=== PATIENT | male | born 1950 | race American Indian/Alaskan Native ===

== ENCOUNTER 2017-01-28 07:50 | Emergency (ER) | payer MEDICARE, MEDICAID ==
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
[2017-01-28 09:12] VITALS: BP 164/55
--- NOTE | 2017-01-28 09:40 | CR ---
Clinical history: 66-year-old male with abdominal pain. Interpretation: PA/lateral chest films abnormal but unchanged, except for technique and inspiration, when compared directly back to previous exam 12 June 2016 and 13 March 2016. Abnormal appearance posterior lateral right eighth rib with associated pleural reactive scarring righ t lower lobe. Normal cardiac silhouette without cephalization of flow, signs of alveolar edema or dependent pleural effusion. No new parenchymal lung nodule or mass lesion, hilar lymphadenopathy or focal lobar pneumonia.
--- NOTE | 2017-02-01 10:57 | EKG ---
01/28/2017 - CHANDA ARMIJO - This 12-lead EKG shows a normal sinus rhythm with a ventricular rate of 60. Normal axis and intervals. Nonspecific T-waves in the lateral leads and no other acute ST-T wave changes. [facility] /[id number]
== END 2017-01-28 11:55 | disposition home or self-care (01) ==
LOC: DL.ED 07:50
DX: K81.9 Cholecystitis, unspecified (principal); E78.00 Pure hypercholesterolemia, unspecified; I11.0 Hypertensive heart disease with heart failure; I50.9 Heart failure, unspecified; E11.9 Type 2 diabetes mellitus without complications; M19.90 Unspecified osteoarthritis, unspecified site; Z86.2 Personal history of diseases of the blood and blood-forming organs and certain disorders involving the immune mechanism; Z87.891 Personal history of nicotine dependence; Z91.012 Allergy to eggs; Z91.013 Allergy to seafood; Z91.018 Allergy to other foods; Z88.8 Allergy status to other drugs, medicaments and biological substances; Z88.6 Allergy status to analgesic agent; Z79.899 Other long term (current) drug therapy
CPT/HCPCS: 36415; 71020; 80053; 82150; 82550; 82553; 83690; 84484; 85025; 93005; 93010; 99284

== ENCOUNTER 2017-05-22 17:31 | Emergency (ER) | payer MEDICARE, MEDICAID, OTHER ==
[2017-05-22] MEDS ORDERED: Iopamidol 612 MG/ML 100 ML Bottle IVPUSH ONE (17:46)
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
[2017-05-22 18:22] LABS: ACETAMINOPHEN < 10; CHLORIDE,CL 94 mmol/L (101-111); SODIUM,NA 135 mmol/L (135-145)
[2017-05-22 19:38] VITALS: BP 100/67
--- NOTE | 2017-05-29 09:26 | EKG ---
05/22/2017- CHANDA ARMIJO - FINDINGS: EKG, per my reading, shows sinus rhythm with PACs at a rate of 78. [facility] /[id number]
== END 2017-05-22 21:11 ==
LOC: DL.ED 17:31
DX: I13.0 Hypertensive heart and chronic kidney disease with heart failure and stage 1 through stage 4 chronic kidney disease, or unspecified chronic kidney disease (principal); N18.9 Chronic kidney disease, unspecified; M54.9 Dorsalgia, unspecified; E11.22 Type 2 diabetes mellitus with diabetic chronic kidney disease; I50.9 Heart failure, unspecified; E78.00 Pure hypercholesterolemia, unspecified; Z88.6 Allergy status to analgesic agent; Z91.012 Allergy to eggs; Z91.013 Allergy to seafood; Z88.8 Allergy status to other drugs, medicaments and biological substances; Z79.899 Other long term (current) drug therapy; Z87.891 Personal history of nicotine dependence; V49.40XA Driver injured in collision with unspecified motor vehicles in traffic accident, initial encounter
CPT/HCPCS: 36415; 70450; 71260; 72125; 74177; 80053; 85025; 85610; 99284; G0480; Q9967

== ENCOUNTER 2017-09-04 06:16 | Emergency (ER) | payer MEDICARE, MEDICAID ==
--- NOTE | 2017-09-04 06:46 | EDM.PDOC ---
<Rizwan Castro M - Last Filed: 09/04/17 06:37> ED HPI GENERAL MEDICAL PROBLEM - General Chief Complaint: Chest Pain Stated Complaint: SOB, CHEST PAIN [id number] Time Seen by Provider: 09/04/17 06:30 Source of Information: Reports: Patient History Limitations: Reports: No Limitations - History of Present Illness INITIAL COMMENTS - FREE TEXT/NARRATIVE: This 67 yo male patient was sent to the ED from dialysis due to increased shortness of breath and chest pain. The patient reports he was about 1 hour into his run of dialysis (normally 4 hour run) when he experienced shortness of breath then chest pain. The patient reports his pain is about a 6/10 at this time. The patient has a history of CHF, Htn, and a previous IA. The patient reports he ate at the [employer] on Saturday and began to have abdominal pain, nausea/ vomiting and diarrhea since that time. Onset: Today Onset Date: 09/04/17 Onset Time: 06:15 Duration: Constant Location: Reports: Chest Quality: Reports: Ache, Dull, Pressure Severity: Moderate Improves with: Reports: None Worsens with: Reports: None Associated Symptoms: Reports: Chest Pain, Shortness of Breath Mid-Sternal Chest Pain Score (Numeric/FACES): 6 - Related Data Allergies Allergy/AdvReac Type Severity Reaction Status Date / Time aspirin Allergy Severe Swollen Verified 09/04/17 06:25 Tongue chicken derived Allergy Rash Verified 09/04/17 06:25 egg Allergy Rash Verified 09/04/17 06:25 fish derived Allergy Rash Verified 09/04/17 06:25 ibuprofen Allergy Shortness Verified 09/04/17 06:25 of Breath Home Meds: Home Meds Hydrocodone/Acetaminophen [Hydrocodon-Acetaminophn 10-325] 1 tab PO Q6H PRN 07/18 [History] atorvaSTATin [Lipitor] 1 tab PO BEDTIME 12/02/15 [History] Lisinopril 40 mg PO BID 12/25/15 [History] Metoprolol Tartrate [Lopressor] 100 mg PO BID 01/10/16 [History] amLODIPine [Norvasc] 1 tab PO DAILY 01/10/16 [History] Clopidogrel [Plavix] 75 mg PO DAILY 01/05/17 [History] Past Medical History HEENT History: Reports: Cataract, Hard of Hearing, Impaired Vision Cardiovascular History: Reports: Aneurysm, Heart Failure, High Cholesterol, Hypertension, [place], Stents Other Cardiovascular History: PATIENT REPORTS HTN CONTROLLED BY DIALYSIS NO FURTHER MEDICATIONS ADMIN Respiratory History: Reports: None Gastrointestinal History: Reports: None Genitourinary History: Reports: Dialysis, Other (See Below) Other Genitourinary History: Last dialysis was saturday morning. Musculoskeletal History: Reports: Arthritis, Back Pain, Chronic Neurological History: Reports: None Psychiatric History: Reports: None Endocrine/Metabolic History: Reports: Diabetes, Type II Hematologic History: Reports: Anemia Immunologic History: Reports: None Oncologic (Cancer) History: Reports: None Dermatologic History: Reports: None - Infectious Disease History Infectious Disease History: Reports: Chicken Pox, Measles, Mumps, TB - Past Surgical History HEENT Surgical History: Reports: Cataract Surgery, Naso-Sinus Surgery, Oral Surgery Cardiovascular Surgical History: Reports: Carotid Endarterectomy, Carotid Stents , Other (See Below) Respiratory Surgical History: Reports: None GI Surgical History: Reports: Colonoscopy, EGD Neurological Surgical History: Reports: None Dermatological Surgical History: Reports: None Social & Family History - Family History Family Medical History: Noncontributory - Tobacco Use Smoking Status *Q: Current Some Day Smoker Years of Tobacco use: 25 Packs/Tins Daily: 0.1 Used Tobacco, but Quit: Yes Month/Year Tobacco Last Used: 3 months ago Second Hand Smoke Exposure: Yes - Caffeine Use Caffeine Use: Reports: Coffee - Alcohol Use Days Per Week of Alcohol Use: 0 Number of Drinks Per Day: 4 Total Drinks Per Week: 0 - Recreational Drug Use Recreational Drug Use: No Drug Use in Last 12 Months: No - Living Situation & Occupation Living situation: Reports: Occupation: Retired ED ROS GENERAL - Review of Systems Review Of Systems: ROS reveals no pertinent complaints other than HPI. ED EXAM, GENERAL - Physical Exam Exam: See Below Exam Limited By: No Limitations General Appearance: Alert, WD/WN, Moderate Distress, Obese Eye Exam: Bilateral Eye: EOMI, Normal Inspection, PERRL Ears: Normal External Exam, Normal Canal, Hearing Grossly Normal, Normal TMs Nose: Normal Inspection, Normal Mucosa, No Blood Throat/Mouth: Normal Inspection, Normal Lips, Normal Teeth, Normal Gums, Normal Oropharynx, Normal Voice, No Airway Compromise Head: Atraumatic, Normocephalic Neck: Normal Inspection, Supple, Non-Tender, Full Range of Motion Respiratory/Chest: Lungs Clear, No Accessory Muscle Use, Chest Non-Tender, Decreased Breath Sounds Cardiovascular: Normal Peripheral Pulses, Regular Rate, Rhythm, No Edema, No Gallop, No JVD, No Rub, Systolic Murmur GI/Abdominal: Normal Bowel Sounds, Soft, Non-Tender, No Organomegaly, No Distention, No Abnormal Bruit, No Mass (Male) Exam: Deferred Rectal (Males) Exam: Deferred Back Exam: Normal Inspection, Full Range of Motion, NT Extremities: Normal Inspection, Normal Range of Motion, Non-Tender, Normal Capillary Refill, No Pedal Edema Neurological: Alert, Oriented, CN II-XII Intact, Normal Cognition, Normal Gait, Normal Reflexes, No Motor/Sensory Deficits Psychiatric: Normal Affect, Normal Mood Skin Exam: Warm, Dry, Intact, Normal Color, No Rash Lymphatic: No Adenopathy Course - Vital Signs Last Recorded V/S: Last Vital Signs Temp 36.7 C 09/04/17 06:20 Pulse 86 09/04/17 06:20 Resp 18 09/04/17 06:20 BP 130/62 09/04/17 06:20 Pulse Ox 99 09/04/17 06:20 - Orders/Labs/Meds Orders: Active Orders 24 hr Category Date Time Status EKG Documentation Completion [RC] URGENT Care 09/04/17 06:25 Active Labs: Laboratory Tests 09/04/17 09/04/17 09/04/17 Range/Units 06:28 06:28 06:37 WBC 10.1 H (5.0-10.0) 10^3/uL RBC 3.99 L (4.6-6.2) 10^6/uL Hgb 11.8 L (14.0-18.0) g/dL Hct 35.6 L (40.0-54.0) % MCV 89.2 (80-100) fL MCH 29.6 (27.0-34.0) pg MCHC 33.1 (33.0-35.0) g/dL Plt Count 195 (150-450) 10^3/uL Neut % (Auto) 76.7 H (42.2-75.2) % Lymph % (Auto) 13.7 L (20.5-50.1) % [place] % (Auto) 4.3 (2-8) % Eos % (Auto) 4.7 H (1.0-3.0) % Baso % (Auto) 0.6 (0.0-1.0) % PT 10.0 (9.0-12.0) SEC INR 1.0 (0.9-1.2) Sodium 136 (135-145) mmol/L Potassium 4.2 (3.6-5.0) mmol/L Chloride 98 L (101-111) mmol/L Carbon Dioxide 26.0 (21.0-31.0) mmol/L Anion Gap 16.2 BUN 46 H (7-18) mg/dL Creatinine 8.5 H D (0.6-1.3) mg/dL Est Cr Clr Drug Dosing 8.83 mL/min Estimated GFR (MDRD) 6 BUN/Creatinine Ratio 5.41 Glucose 172 H (74-105) mg/dL Calcium 7.2 L (8.4-10.2) mg/dl Total Bilirubin 0.7 (0.2-1.0) mg/dL AST 18 (10-42) IU/L ALT 13 (10-60) IU/L Alkaline Phosphatase 128 H (42-121) IU/L Troponin I 0.04 H* (0.00-0.02) ng/ml B-Natriuretic Peptide 871 H (0-100) pg/ml Total Protein 7.8 (6.7-8.2) g/dl Albumin 3.7 (3.2-5.5) g/dl Globulin 4.1 Albumin/Globulin Ratio 0.90 Meds: Medications Discontinued Medications Generic Name Dose Route Start Last Admin Trade Name Freq PRN Reason Stop Dose Admin Clopidogrel Bisulfate 150 mg 09/04/17 07:40 Plavix PO 09/04/17 07:41 ONETIME ONE Lisinopril 40 mg 09/04/17 07:39 Prinivil PO 09/04/17 07:40 ONETIME ONE Departure - Departure Disposition: DC/Tfer to Acute Hospital 02 Clinical Impression: Chest pain, Elevated troponin, Acute coronary syndrome, ESRD (end stage renal disease) on dialysis CHF (congestive heart failure) Qualifiers: Heart failure type: unspecified Heart failure chronicity: chronic Qualified Code(s): I50.9 - Heart failure, unspecified Forms: ED Department Discharge, Interfacility Transfer EMTALA <Pedro Carmichael - Last Filed: 09/04/17 07:50> ED HPI GENERAL MEDICAL PROBLEM - General Source of Information: Reports: Old Records, RN, RN Notes Reviewed - History of Present Illness INITIAL COMMENTS - FREE TEXT/NARRATIVE: Assumed care of pt from Rizwan MARTINEZ at 0700HR shift change. No changes to CC/HPI, Hx, ROS, or exam as documented by the PA for this enocounter. *Pt has aspirin allergy. Pt has not taken his Plavix or Lisinopril yet today. Social & Family History - Family History Cardiac: Reports: Afib, Angina, CAD (multiple family members), Cardiomyopathy, Heart Failure, High Cholesterol, Hypertension, IA, Prior Cardiac Arrest (brother ) Respiratory: Reports: COPD : Reports: Dialysis, Renal Disease/Insufficiency Musculoskeletal: Reports: Arthritis Neurological: Reports: CVA Endocrine/Metabolic: Reports: Diabetes, type II ED EXAM, GENERAL - Physical Exam Free Text/Narrative:: No changes to exam as documented by Rizwan MARTINEZ for this encounter. EKG INTERPRETATION EKG Date: 09/04/17 Time: 06:20 Rhythm: Other (SR) Rate (Beats/Min): 86 [place]: Normal P-Wave: Present QRS: Normal ST-T: Other (nonspecific lateral ST-T wave changes, poss. ischemia) Comparison: NA - No Prior EKG Course - Orders/Labs/Meds Meds: Medications Discontinued Medications Generic Name Dose Route Start Last Admin Trade Name Freq PRN Reason Stop Dose Admin Clopidogrel Bisulfate 150 mg 09/04/17 07:40 Plavix PO 09/04/17 07:41 ONETIME ONE Lisinopril 40 mg 09/04/17 07:39 Prinivil PO 09/04/17 07:40 ONETIME ONE - Radiology Interpretation Free Text/Narrative:: CXR: no acute process, see Rad. report. Departure - Departure Time of Disposition: 07:37 Reason for Transfer *Q: Primary PCI Indicated Condition: Serious
--- NOTE | 2017-09-04 07:08 | CR ---
Clinical history: 67-year-old diabetic male smoker with chest pain and shortness of breath. Interpretation: Focal pleural parenchymal scarring right mid lung unchanged since 28 January 2017 e xam. Normal cardiac silhouette without cephalization of vascular flow, signs of alveolar edema or dependen t pleural fluid accumulation. Despite less than optimal inspiratory effort no new lung mass, hilar lymphadenopathy or focal lobar p neumonia. No pneumothorax.
[2017-09-04] MEDS ORDERED: Lisinopril 20 MG Tab PO ONE (07:39)
[2017-09-04] MEDS ORDERED: Clopidogrel 75 MG Tab PO ONE (07:40)
[2017-09-04 07:53] VITALS: BP 131/69
--- NOTE | 2017-09-04 14:15 | EKG ---
09/04/2017 - CHANDA ARMIJO - TIME: 6:20 a.m. FINDINGS: Sinus rhythm. [facility] /[id number]
== END 2017-09-04 08:10 ==
LOC: DL.ED 06:16
DX: I24.9 Acute ischemic heart disease, unspecified (principal); I13.2 Hypertensive heart and chronic kidney disease with heart failure and with stage 5 chronic kidney disease, or end stage renal disease; E11.22 Type 2 diabetes mellitus with diabetic chronic kidney disease; N18.6 End stage renal disease; I50.9 Heart failure, unspecified; Z99.2 Dependence on renal dialysis; R78.9 Finding of unspecified substance, not normally found in blood; F17.210 Nicotine dependence, cigarettes, uncomplicated; Z79.899 Other long term (current) drug therapy; Z88.6 Allergy status to analgesic agent; Z91.018 Allergy to other foods; Z91.012 Allergy to eggs; Z91.013 Allergy to seafood
CPT/HCPCS: 36415; 71045; 80053; 83880; 84484; 85025; 85610; 93005; 93010; 99285; A9270

== ENCOUNTER 2019-08-27 17:46 | Emergency (ER) | payer MEDICARE, MEDICAID ==
[2019-08-27 18:07] VITALS: BP 153/91; PULSE 88
--- NOTE | 2019-08-27 19:06 | EDM.PDOC ---
<Carmen Nickerson - Last Filed: 08/27/19 19:10> ED HPI GENERAL MEDICAL PROBLEM - General Chief Complaint: Chest Pain Stated Complaint: AMBULANCE Time Seen by Provider: 08/27/19 18:05 Source of Information: Reports: Patient, EMS, EMS Notes Reviewed, RN, RN Notes Reviewed History Limitations: Reports: No Limitations - History of Present Illness INITIAL COMMENTS - FREE TEXT/NARRATIVE: Patient presents to ER per ALS with complaint of mid epigastric pain. Reported to EMS that he was having chest pain, a saline lock was started in route, patient was given nitro and morphine in route. Patient states he had gallbladder attacks in the past and had pain that was similar to this in the midepigastric area. Patient states the last time it happened he had an egg roll , tonight he had a burrito for supper. Patient is on dialysis runs dialysis on Wednesdays and Fridays. Patient denies shortness of breath, cough, fever, chills, nausea, vomiting, diarrhea. Onset: Today, Sudden Epigastric Pain Score (Numeric/FACES): 3 - Related Data Allergies Allergy/AdvReac Type Severity Reaction Status Date / Time aspirin Allergy Severe Swollen Verified 08/27/19 18:10 Tongue chicken derived Allergy Rash Verified 08/27/19 18:10 egg Allergy Rash Verified 08/27/19 18:10 fish derived Allergy Rash Verified 08/27/19 18:10 ibuprofen Allergy Shortness Verified 08/27/19 18:10 of Breath Home Meds: Home Meds Hydrocodone/Acetaminophen [Hydrocodone-Acetamin 10-325 mg] 1 tab PO Q6H PRN 07/18 [History] atorvaSTATin [Lipitor] 1 tab PO BEDTIME 12/02/15 [History] Lisinopril 40 mg PO BID 12/25/15 [History] Metoprolol Tartrate [Lopressor] 100 mg PO BID 01/10/16 [History] amLODIPine [Norvasc] 1 tab PO DAILY 01/10/16 [History] Clopidogrel [Plavix] 75 mg PO DAILY 01/05/17 [History] Past Medical History HEENT History: Reports: Cataract, Hard of Hearing, Impaired Vision Cardiovascular History: Reports: Aneurysm, Heart Failure, High Cholesterol, Hypertension, [place], Stents Other Cardiovascular History: PATIENT REPORTS HTN CONTROLLED BY DIALYSIS NO FURTHER MEDICATIONS ADMIN Respiratory History: Reports: None, Other (See Below) Other Respiratory History: only sleeps 2 hours a day. Gastrointestinal History: Reports: None, Cholelithiasis Genitourinary History: Reports: Dialysis, Other (See Below) Other Genitourinary History: Has dialysis tomorrow. Musculoskeletal History: Reports: Arthritis, Back Pain, Chronic Neurological History: Reports: None Psychiatric History: Reports: None Endocrine/Metabolic History: Reports: Diabetes, Type II Hematologic History: Reports: Anemia Immunologic History: Reports: None Oncologic (Cancer) History: Reports: None Dermatologic History: Reports: None - Infectious Disease History Infectious Disease History: Reports: Chicken Pox, Measles, Mumps, TB - Past Surgical History HEENT Surgical History: Reports: Cataract Surgery, Naso-Sinus Surgery, Oral Surgery Cardiovascular Surgical History: Reports: Carotid Endarterectomy, Carotid Stents Respiratory Surgical History: Reports: None GI Surgical History: Reports: Colonoscopy, EGD Neurological Surgical History: Reports: None Dermatological Surgical History: Reports: None Social & Family History - Family History Family Medical History: Noncontributory Cardiac: Reports: Afib, Angina, CAD, Cardiomyopathy, Heart Failure, High Cholesterol, Hypertension, [place], Prior Cardiac Arrest Respiratory: Reports: COPD : Reports: Dialysis, Renal Disease/Insufficiency Musculoskeletal: Reports: Arthritis Neurological: Reports: CVA Endocrine/Metabolic: Reports: Diabetes, type II - Tobacco Use Smoking Status *Q: Former Smoker Years of Tobacco use: 40 Used Tobacco, but Quit: Yes Month/Year Tobacco Last Used: 07/2019 - Caffeine Use Caffeine Use: Reports: Coffee - Recreational Drug Use Recreational Drug Use: No - Living Situation & Occupation Living situation: Reports: Occupation: Retired ED ROS GENERAL - Review of Systems Review Of Systems: Comprehensive ROS is negative, except as noted in HPI. ED EXAM, GENERAL - Physical Exam Exam: See Below Exam Limited By: No Limitations General Appearance: Alert, WD/WN, No Apparent Distress Eye Exam: Bilateral Eye: EOMI, Normal Inspection Ears: Normal External Exam, Hearing Grossly Normal Nose: Normal Inspection Throat/Mouth: Normal Inspection, Normal Voice, No Airway Compromise Head: Atraumatic, Normocephalic Neck: Normal Inspection, Supple, Non-Tender, Full Range of Motion Respiratory/Chest: No Respiratory Distress, No Accessory Muscle Use, Chest Non- Tender, Crackles (bases bilaterally) Cardiovascular: Normal Peripheral Pulses, Regular Rate, Rhythm, No Edema, No Gallop, No JVD, No Rub, Diastolic Murmur Peripheral Pulses: 2+: Radial (L), Radial (R) GI/Abdominal: Normal Bowel Sounds, Soft, Tender (epigastrum\) (Male) Exam: Deferred Rectal (Males) Exam: Deferred Back Exam: Normal Inspection, Full Range of Motion, NT Extremities: Normal Inspection, Normal Range of Motion, Non-Tender, Normal Capillary Refill, No Pedal Edema Neurological: Alert, Oriented, CN II-XII Intact, Normal Cognition, Normal Gait, Normal Reflexes, No Motor/Sensory Deficits Psychiatric: Normal Affect, Normal Mood Skin Exam: Warm, Dry, Intact, Normal Color, No Rash Lymphatic: No Adenopathy Course - Vital Signs Last Recorded V/S: Last Vital Signs Temp 37.1 C 08/27/19 18:05 Pulse 88 08/27/19 18:05 Resp 18 08/27/19 18:05 BP 153/91 H 08/27/19 18:05 Pulse Ox 96 08/27/19 18:05 - Orders/Labs/Meds Orders: Active Orders 24 hr Category Date Time Status EKG Documentation Completion [RC] STAT Care 08/27/19 17:52 Active Labs: Laboratory Tests 08/27/19 08/27/19 08/27/19 Range/Units 17:58 17:58 17:58 WBC 9.2 (5.0-10.0) 10^3/uL RBC 3.64 L (4.6-6.2) 10^6/uL Hgb 10.7 L (14.0-18.0) g/dL Hct 33.3 L (40.0-54.0) % MCV 91.5 (80-100) fL MCH 29.4 (27.0-34.0) pg MCHC 32.1 L (33.0-35.0) g/dL Plt Count 244 (150-450) 10^3/uL Neut % (Auto) 76.2 H (42.2-75.2) % Lymph % (Auto) 12.4 L (20.5-50.1) % [place] % (Auto) 9.1 H (2-8) % Eos % (Auto) 1.8 (1.0-3.0) % Baso % (Auto) 0.5 (0.0-1.0) % Sodium 141 (136-145) mmol/L Potassium 5.4 H (3.5-5.1) mmol/L Chloride 101 (98-107) mmol/L Carbon Dioxide 29 (21-32) mmol/L Anion Gap 16.4 H (7-13) mEq/L BUN 45 H (7-18) mg/dL Creatinine 7.70 H* (0.70-1.30) mg/dL Est Cr Clr Drug Dosing TNP Estimated GFR (MDRD) 7 BUN/Creatinine Ratio 5.8 (No establ ref range) Glucose 200 H (74-99) mg/dL Calcium 8.3 L (8.5-10.1) mg/dL Total Bilirubin 0.8 (0.2-1.0) mg/dL AST 133 H (15-37) U/L ALT 103 H (16-63) U/L Alkaline Phosphatase 289 H (46-116) U/L Troponin I 0.046 (0.000-0.056) ng/mL B-Natriuretic Peptide 1280 H (0-100) pg/ml Total Protein 7.8 (6.4-8.2) g/dL Albumin 3.7 (3.4-5.0) g/dL Globulin 4.1 Albumin/Globulin Ratio 0.9 Amylase 109 (25-115) U/L Lipase 1288 H (73-393) U/L - Radiology Interpretation Free Text/Narrative:: Chest xray: FINDINGS: Lungs: Right lung base ground-glass and patchy airspace consolidations are appreciated. No other discrete airspace disease is appreciated at this time. Pleural space: Unremarkable. No pleural effusion. No pneumothorax. Heart/Mediastinum: The heart is mildly enlarged. Vasculature: There is pulmonary vascular prominence. Calcified aortic knob. Bones/joints: No acute abnormality or aggressive osseous lesion. IMPRESSION: 1. Acute airspace disease in the right lower lung favoring infectious pneumonic process in the appropriate clinical setting. 2. Stable prominence to the pulmonary vasculature. Thank you for allowing us to participate in the care of your patient. Dictated and Authenticated by: Jozef Webster MD 08/27/2019 6:40 PM Central Time ([place] & [place]) See rad report Departure - Departure Disposition: Home, Self-Care 01 Clinical Impression: Cholelithiases Qualifiers: Cholelithiasis location: gallbladder and bile duct Cholecystitis presence: without cholecystitis Biliary obstruction: without biliary obstruction Qualified Code(s): K80.70 - Calculus of gallbladder and bile duct without cholecystitis without obstruction Instructions: Cholelithiasis, [id number] Forms: ED Department Discharge Additional Instructions: 1) avoid fatty, oily, greasy, fried, spicy foods 2) see clinic tomorrow for SURGICAL REFERRAL FOR GALL BLADDER ISSUE. 3) return if there is any change or concern Sepsis Event Note - Evaluation Sepsis Screening Result: No Definite Risk - Focused Exam Vital Signs: Vital Signs Temp Pulse Resp BP Pulse Ox 08/27/19 18:05 37.1 C 88 18 153/91 H 96 Date Exam was Performed: 08/27/19 Time Exam was Performed: 19:10 <Jonathan Waters - Last Filed: 08/27/19 21:40> Course - Re-Assessments/Exams Free Text/Narrative Re-Assessment/Exam: 08/27/19 20:21 results discussed with pt whose pain has subsided now. 08/27/19 21:36 results discussed with pt who states he is totally pain free and prefers home but will f/u with clinic tomorrow after is dialysis for surgical referral on GB issue. Departure - Departure Time of Disposition: 21:37 Condition: Good Sepsis Event Note - Focused Exam Date Exam was Performed: 08/27/19 Time Exam was Performed: 21:36
[2019-08-27 19:39] LABS: ANION GAP 16.4 mEq/L (7-13); CHLORIDE,CL 101 mmol/L (98-107); SODIUM,NA 141 mmol/L (136-145)
== END 2019-08-27 21:47 | disposition home or self-care (01) ==
LOC: DL.ED 17:46
DX: K80.70 Calculus of gallbladder and bile duct without cholecystitis without obstruction (principal); E78.00 Pure hypercholesterolemia, unspecified; I10 Essential (primary) hypertension; I25.2 Old myocardial infarction; E11.9 Type 2 diabetes mellitus without complications; Z79.899 Other long term (current) drug therapy; Z87.891 Personal history of nicotine dependence; Z88.6 Allergy status to analgesic agent; Z91.012 Allergy to eggs; Z91.013 Allergy to seafood
CPT/HCPCS: 36415; 71045; 74176; 80053; 82150; 83690; 83880; 84484; 85025; 93005; 99284; 99285-25

== ENCOUNTER 2019-12-29 13:51 | Emergency (ER) | payer MEDICARE, MEDICAID ==
[2019-12-29 14:20] VITALS: BP 188/69; PULSE 88
--- NOTE | 2019-12-29 14:25 | EDM.PDOC ---
ED HPI GENERAL MEDICAL PROBLEM - General Stated Complaint: CHEST PAINS Time Seen by Provider: 12/29/19 14:15 Source of Information: Reports: Patient History Limitations: Reports: No Limitations - History of Present Illness INITIAL COMMENTS - FREE TEXT/NARRATIVE: This 69 yo male patient reports to the ED with mid lower chest/mid upper abdominal pain. The patient reports his pain started this morning at 0630 after he ate a bowl of chili. The patient reports he is a dialysis patient and had dialysis yesterday (scheduled for MWF). The patient reports he has taken some Tums with some temporary symptom relief. The patient reports he does have a history of a bad gallbladder with similar symptoms. The patient reports he was supposed to have his gallbladder removed 6 months ago, but he did not follow-up to have the procedure done. 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) Chest Pain Score (Numeric/FACES): 6 - Related Data Allergies Allergy/AdvReac Type Severity Reaction Status Date / Time aspirin Allergy Severe Swollen Verified 12/29/19 14:20 Tongue chicken derived Allergy Rash Verified 12/29/19 14:20 egg Allergy Rash Verified 12/29/19 14:20 fish derived Allergy Rash Verified 12/29/19 14:20 ibuprofen Allergy Shortness Verified 12/29/19 14:20 of Breath Home Meds: Home Meds Hydrocodone/Acetaminophen [Hydrocodone-Acetamin 10-325 mg] 1 tab PO Q6H PRN 03/08/15 [History] atorvaSTATin [Lipitor] 1 tab PO BEDTIME 12/02/15 [History] Lisinopril 40 mg PO BID 12/25/15 [History] Metoprolol Tartrate [Lopressor] 100 mg PO BID 01/10/16 [History] amLODIPine [Norvasc] 1 tab PO DAILY 01/10/16 [History] Clopidogrel [Plavix] 75 mg PO DAILY 01/05/17 [History] Past Medical History HEENT History: Reports: Cataract, Hard of Hearing, Impaired Vision Cardiovascular History: Reports: Aneurysm, Heart Failure, High Cholesterol, Hypertension, [place], Stents Other Cardiovascular History: PATIENT REPORTS HTN CONTROLLED BY DIALYSIS NO FURTHER MEDICATIONS ADMIN Respiratory History: Reports: None, Other (See Below) Other Respiratory History: only sleeps 2 hours a day. Gastrointestinal History: Reports: None, Cholelithiasis Genitourinary History: Reports: Dialysis, Other (See Below) Other Genitourinary History: Has dialysis tomorrow. Musculoskeletal History: Reports: Arthritis, Back Pain, Chronic Neurological History: Reports: None Psychiatric History: Reports: None Endocrine/Metabolic History: Reports: Diabetes, Type II Hematologic History: Reports: Anemia Immunologic History: Reports: None Oncologic (Cancer) History: Reports: None Dermatologic History: Reports: None - Infectious Disease History Infectious Disease History: Reports: Chicken Pox, Measles, Mumps, TB - Past Surgical History HEENT Surgical History: Reports: Cataract Surgery, Naso-Sinus Surgery, Oral Surgery Cardiovascular Surgical History: Reports: Carotid Endarterectomy, Carotid Stents Respiratory Surgical History: Reports: None GI Surgical History: Reports: Colonoscopy, EGD Neurological Surgical History: Reports: None Dermatological Surgical History: Reports: None Social & Family History - Family History Family Medical History: Noncontributory Cardiac: Reports: Afib, Angina, CAD, Cardiomyopathy, Heart Failure, High Ch olesterol, Hypertension, [place], Prior Cardiac Arrest Respiratory: Reports: COPD : Reports: Dialysis, Renal Disease/Insufficiency Musculoskeletal: Reports: Arthritis Neurological: Reports: CVA Endocrine/Metabolic: Reports: Diabetes, type II - Caffeine Use Caffeine Use: Reports: Coffee - Living Situation & Occupation Living situation: Reports: Occupation: Retired ED ROS GENERAL - Review of Systems Review Of Systems: Comprehensive ROS is negative, except as noted in HPI. ED EXAM, GENERAL - Physical Exam Exam: See Below Exam Limited By: No Limitations General Appearance: Alert, WD/WN, Moderate Distress Eye Exam: Bilateral Eye: EOMI, Normal Inspection, PERRL Ears: Normal External Exam, Normal Canal, Hearing Grossly Normal, Normal TMs Nose: Normal Inspection, Normal Mucosa, No Blood Throat/Mouth: Normal Inspection, Normal Lips, Normal Teeth, Normal Gums, Normal Oropharynx, Normal Voice, No Airway Compromise Head: Atraumatic, Normocephalic Neck: Normal Inspection, Supple, Non-Tender, Full Range of Motion Respiratory/Chest: No Respiratory Distress, Lungs Clear, Normal Breath Sounds, No Accessory Muscle Use, Chest Non-Tender Cardiovascular: Normal Peripheral Pulses, Regular Rate, Rhythm, No Murmur, No Rub, Systolic Murmur GI/Abdominal: Normal Bowel Sounds, Soft, Non-Tender, No Organomegaly, No Distention, No Abnormal Bruit, No Mass (Male) Exam: Deferred Rectal (Males) Exam: Deferred Back Exam: Normal Inspection, Full Range of Motion, NT Extremities: Normal Inspection, Normal Range of Motion, Non-Tender, Normal Capillary Refill, No Pedal Edema Neurological: Alert, Oriented, CN II-XII Intact, Normal Cognition, Normal Gait, Normal Reflexes, No Motor/Sensory Deficits Psychiatric: Normal Affect, Normal Mood Skin Exam: Warm, Dry, Intact, Normal Color, No Rash Lymphatic: No Adenopathy Course - Vital Signs Last Recorded V/S: Last Vital Signs Temp 37.3 C 12/29/19 14:16 Pulse 88 12/29/19 14:16 Resp 20 12/29/19 14:16 BP 188/69 H 12/29/19 14:16 Pulse Ox 96 12/29/19 14:16 - Orders/Labs/Meds Orders: Active Orders 24 hr Category Date Time Status EKG Documentation Completion [RC] STAT Care 12/29/19 14:00 Ordered Labs: Laboratory Tests 12/29/19 12/29/19 Range/Units 14:13 14:13 WBC 10.3 H (5.0-10.0) 10^3/uL RBC 3.47 L (4.6-6.2) 10^6/uL Hgb 10.1 L (14.0-18.0) g/dL Hct 30.9 L (40.0-54.0) % MCV 89.0 (80-100) fL MCH 29.1 (27.0-34.0) pg MCHC 32.7 L (33.0-35.0) g/dL Plt Count 199 (150-450) 10^3/uL Neut % (Auto) 76.9 H (42.2-75.2) % Lymph % (Auto) 14.9 L (20.5-50.1) % [place] % (Auto) 6.5 (2-8) % Eos % (Auto) 1.3 (1.0-3.0) % Baso % (Auto) 0.4 (0.0-1.0) % Sodium 140 (136-145) mmol/L Potassium 5.2 H (3.5-5.1) mmol/L Chloride 103 (98-107) mmol/L Carbon Dioxide 29 (21-32) mmol/L Anion Gap 13.2 H (7-13) mEq/L BUN 39 H (7-18) mg/dL Creatinine 7.93 H* (0.70-1.30) mg/dL Est Cr Clr Drug Dosing 9.79 mL/min Estimated GFR (MDRD) 7 BUN/Creatinine Ratio 4.9 (No establ ref range) Glucose 132 H (74-99) mg/dL Calcium 8.7 (8.5-10.1) mg/dL Total Bilirubin 0.3 (0.2-1.0) mg/dL AST 7 L (15-37) U/L ALT 14 L (16-63) U/L Alkaline Phosphatase 184 H (46-116) U/L Troponin I < 0.017 (0.000-0.056) ng/mL Total Protein 7.7 (6.4-8.2) g/dL Albumin 3.4 (3.4-5.0) g/dL Globulin 4.3 Albumin/Globulin Ratio 0.8 Meds: Medications Discontinued Medications Generic Name Dose Route Start Last Admin Trade Name Freq PRN Reason Stop Dose Admin Al Hydroxide/Mg Hydroxide 30 ml 12/29/19 14:54 12/29/19 14:59 Gi Cocktail PO 12/29/19 14:55 30 ml ONETIME ONE Administration - Re-Assessments/Exams Free Text/Narrative Re-Assessment/Exam: 12/29/19 15:25 The patient reports symptom improvement with the GI Cocktail. Departure - Departure Time of Disposition: 15:27 Disposition: Home, Self-Care 01 Condition: Fair Clinical Impression: GERD (gastroesophageal reflux disease) Qualifiers: Esophagitis presence: with esophagitis Qualified Code(s): K21.0 - Gastro- esophageal reflux disease with esophagitis Instructions: Food Choices for Gastroesophageal Reflux Disease, Adult, Food Choices for Gastroesophageal Reflux Disease, Adult, [id number] Forms: ED Department Discharge Care Plan Goals: The patient was advised of the examination, EKG and lab results during the visit. The patient was encouraged to stick to a bland eating plan. If the patient has any additional symptoms or concerns, the patient should either return to the emergency department or visit his primary care facility. Sepsis Event Note (ED) - Evaluation Sepsis Screening Result: No Definite Risk - Focused Exam Vital Signs: Vital Signs Temp Pulse Resp BP Pulse Ox 12/29/19 14:16 37.3 C 88 20 188/69 H 96 - My Orders Last 24 Hours: My Active Orders 12/29/19 14:00 EKG Documentation Completion [RC] STAT - Assessment/Plan Last 24 Hours: My Active Orders 12/29/19 14:00 EKG Documentation Completion [RC] STAT
[2019-12-29 14:44] LABS: ANION GAP 13.2 mEq/L (7-13); CHLORIDE,CL 103 mmol/L (98-107); SODIUM,NA 140 mmol/L (136-145)
[2019-12-29] MEDS ORDERED: GI Cocktail Oral Solution 30 ML PO ONE (14:54)
== END 2019-12-29 15:47 | disposition home or self-care (01) ==
LOC: DL.ED 13:51
DX: K21.0 Gastro-esophageal reflux disease with esophagitis (principal); I11.0 Hypertensive heart disease with heart failure; I50.9 Heart failure, unspecified; I25.2 Old myocardial infarction; E11.9 Type 2 diabetes mellitus without complications; Z88.8 Allergy status to other drugs, medicaments and biological substances; Z88.6 Allergy status to analgesic agent; Z91.012 Allergy to eggs; Z91.018 Allergy to other foods; Z79.02 Long term (current) use of antithrombotics/antiplatelets; Z79.899 Other long term (current) drug therapy
CPT/HCPCS: 36415; 80053; 84484; 85025; 93005; 99285-25; A9270-GY

== ENCOUNTER 2020-08-04 18:31 | Emergency (ER) | payer MEDICARE, MEDICAID ==
[2020-08-04] MEDS ORDERED: Sodium Chloride 0.9% 10 ML Syringe FLUSH PRN (18:34)
[2020-08-04] MEDS ORDERED: Nitroglycerin 0.4 MG Tab.SL SL ONE (19:03)
[2020-08-04 19:05] VITALS: BP 114/50; PULSE 64
[2020-08-04 19:28] LABS: PTT,PARTIAL THROMBOPLSTIN TIME 21.3 SEC (22.0-34.0)
--- NOTE | 2020-08-04 19:28 | CR ---
PROCEDURE INFORMATION: Exam: XR Chest Exam date and time: 08/04/2020 7:14 PM Age: 70 years old Clinical indication: Other: Chest pain TECHNIQUE: Imaging protocol: XR of the chest Views: 1 view. COMPARISON: CR Chest 1V Frontal 08/27/2019 6:34 PM FINDINGS: Lungs: 6 mm nodule versus pulmonary vessel on end left suprahilar region. No consolidation. Pleural spaces: Calcified pleural plaques again noted in right hemithorax Heart/Mediastinum: Unremarkable. No cardiomegaly. Bones/joints: Unremarkable. IMPRESSION: Possible pulmonary nodule left suprahilar region. Consider repeat PA view of thorax
--- NOTE | 2020-08-04 19:33 | EDM.PDOC ---
ED HPI GENERAL MEDICAL PROBLEM - General Chief Complaint: Chest Pain Stated Complaint: AMBULANCE Time Seen by Provider: 08/04/20 19:05 Source of Information: Reports: Patient, EMS, RN History Limitations: Reports: No Limitations - History of Present Illness INITIAL COMMENTS - FREE TEXT/NARRATIVE: ED with c/o anterior chest pain since 1pm, started shortly after helping push 4 [address] of ditch. Diabetic dialysis patient. last run on Saturday. No nausea, sweating at onset of pain, No radiation, Nitro x 1 enroute. Pain decrease 12/13-08/13 currently pain free. Slight SOB on arrival. O2 at 1 L, SOB resolved. 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 chest Pain Score (Numeric/FACES): 4 - Related Data Allergies Allergy/AdvReac Type Severity Reaction Status Date / Time aspirin Allergy Severe Swollen Verified 08/04/20 19:06 Tongue chicken derived Allergy Rash Verified 08/04/20 19:06 egg Allergy Rash Verified 08/04/20 19:06 fish derived Allergy Rash Verified 08/04/20 19:06 ibuprofen Allergy Shortness Verified 08/04/20 19:06 of Breath Home Meds: Home Meds Hydrocodone/Acetaminophen [Hydrocodone-Acetamin 10-325 mg] 1 tab PO Q6H PRN 03/08/15 [History] atorvaSTATin [Lipitor] 1 tab PO BEDTIME 12/02/15 [History] Lisinopril 5 mg PO BID 12/25/15 [History] Metoprolol Tartrate [Lopressor] 50 mg PO BID 01/10/16 [History] amLODIPine [Norvasc] 5 mg PO DAILY 01/10/16 [History] Clopidogrel [Plavix] 75 mg PO DAILY 01/05/17 [History] Acetaminophen 325 mg PO BID PRN 08/04/20 [History] Bumetanide [Bumex] 2 mg PO DAILY 08/04/20 [History] Calcium Acetate 667 mg PO DAILY 08/04/20 [History] Midodrine 10 mg PO .MON,WED,Sat08/04/20 [History] Vitamin B Comp W-C/FA/Zinc [[place] B Strong with C & Zinc Tb] 1 each PO DAILY 08/04/20 [History] oxyCODONE 10 mg PO QID 08/04/20 [History] Past Medical History HEENT History: Reports: Cataract, Hard of Hearing, Impaired Vision Cardiovascular History: Reports: Aneurysm, Heart Failure, High Cholesterol, Hypertension, [place], Stents Other Cardiovascular History: PATIENT REPORTS HTN CONTROLLED BY DIALYSIS NO FURTHER MEDICATIONS ADMIN Respiratory History: Reports: None, Other (See Below) Other Respiratory History: only sleeps 2 hours a day. Gastrointestinal History: Reports: None, Cholelithiasis Genitourinary History: Reports: Dialysis, Other (See Below) Other Genitourinary History: Has dialysis tomorrow. Musculoskeletal History: Reports: Arthritis, Back Pain, Chronic Neurological History: Reports: None Psychiatric History: Reports: None Endocrine/Metabolic History: Reports: Diabetes, Type II Hematologic History: Reports: Anemia Immunologic History: Reports: None Oncologic (Cancer) History: Reports: None Dermatologic History: Reports: None - Infectious Disease History Infectious Disease History: Reports: Chicken Pox, Measles, Mumps, TB - Past Surgical History HEENT Surgical History: Reports: Cataract Surgery, Naso-Sinus Surgery, Oral Surgery Cardiovascular Surgical History: Reports: Carotid Endarterectomy, Carotid Stents Respiratory Surgical History: Reports: None GI Surgical History: Reports: Colonoscopy, EGD Neurological Surgical History: Reports: None Dermatological Surgical History: Reports: None Social & Family History - Family History Family Medical History: No Pertinent Family History Cardiac: Reports: Afib, Angina, CAD, Cardiomyopathy, Heart Failure, High Cholesterol, Hypertension, [place], Prior Cardiac Arrest Respiratory: Reports: COPD : Reports: Dialysis, Renal Disease/Insufficiency Musculoskeletal: Reports: Arthritis Neurological: Reports: CVA Endocrine/Metabolic: Reports: Diabetes, type II - Caffeine Use Caffeine Use: Reports: Coffee - Living Situation & Occupation Living situation: Reports: Occupation: Retired ED ROS GENERAL - Review of Systems Review Of Systems: Comprehensive ROS is negative, except as noted in HPI. ED EXAM, GENERAL - Physical Exam Exam: See Below Exam Limited By: No Limitations General Appearance: Alert, No Apparent Distress Eye Exam: Bilateral Eye: EOMI Ears: Normal External Exam Nose: Normal Inspection Throat/Mouth: Normal Inspection Neck: Normal Inspection Respiratory/Chest: No Respiratory Distress, Decreased Breath Sounds (bilateral bases) Cardiovascular: Normal Peripheral Pulses, Regular Rate, Rhythm GI/Abdominal: Normal Bowel Sounds, Soft, Non-Tender Back Exam: Normal Inspection, Full Range of Motion Extremities: Normal Inspection, Normal Range of Motion, No Pedal Edema, Other (dialysis shunt left upper arm) Neurological: Alert, Oriented, Normal Cognition Psychiatric: Normal Affect, Normal Mood Skin Exam: Warm, Dry, Intact, Normal Color #1 Interpretation EKG Date: 08/04/20 Time: 18:47 Rhythm: NSR Rate (Beats/Min): 58 [place]: Normal P-Wave: Present QRS: Normal QT: Normal Comparison: No Change Course - Vital Signs Last Recorded V/S: Last Vital Signs Temp 99.0 F 08/04/20 19:04 Pulse 64 08/04/20 19:04 Resp 20 08/04/20 19:04 BP 114/50 L 08/04/20 19:04 Pulse Ox 100 08/04/20 19:37 - Orders/Labs/Meds Orders: Active Orders 24 hr Category Date Time Status CORONAVIRUS COVID-19 CLINT [MOLEC] Routine Lab 08/04/20 20:25 Received DRUG SCREEN URINE BIORAD [URCHEM] Stat Lab 08/04/20 18:35 Ordered UA RFX MARCK AND CULT IF INDIC [URIN] Stat Lab 08/04/20 18:36 Ordered Peripheral IV Insertion Adult [OM.PC] Stat Oth 08/04/20 18:36 Ordered Labs: Laboratory Tests 08/04/20 08/04/20 08/04/20 Range/Units 18:45 18:45 18:45 WBC 8.8 (5.0-10.0) 10^3/uL RBC 3.20 L (4.6-6.2) 10^6/uL Hgb 9.0 L (14.0-18.0) g/dL Hct 28.8 L (40.0-54.0) % MCV 90.0 (80-100) fL MCH 28.1 (27.0-34.0) pg MCHC 31.3 L (33.0-35.0) g/dL Plt Count 272 (150-450) 10^3/uL Neut % (Auto) 70.0 (42.2-75.2) % Lymph % (Auto) 17.7 L (20.5-50.1) % [place] % (Auto) 8.3 H (2-8) % Eos % (Auto) 3.4 H (1.0-3.0) % Baso % (Auto) 0.6 (0.0-1.0) % PT 10.3 (9.0-12.0) SEC INR 1.0 (0.9-1.2) APTT 21.3 L (22.0-34.0) SEC Sodium 140 (136-145) mmol/L Potassium 5.0 (3.5-5.1) mmol/L Chloride 102 (98-107) mmol/L Carbon Dioxide 29 (21-32) mmol/L Anion Gap 14.0 H (7-13) mEq/L BUN 38 H (7-18) mg/dL Creatinine 8.28 H* (0.70-1.30) mg/dL Est Cr Clr Drug Dosing 8.69 mL/min Estimated GFR (MDRD) 6 BUN/Creatinine Ratio 4.6 (No establ ref range) Glucose 130 H (74-99) mg/dL Calcium 8.4 L (8.5-10.1) mg/dL Phosphorus 5.4 H (2.6-4.7) mg/dL Magnesium 2.0 (1.8-2.4) mg/dL Total Bilirubin 0.3 (0.2-1.0) mg/dL AST 11 L (15-37) U/L ALT 18 (16-63) U/L Alkaline Phosphatase 145 H (46-116) U/L Troponin I 0.062 H* (0.000-0.056) ng/mL B-Natriuretic Peptide 724 H (0-100) pg/ml Total Protein 7.4 (6.4-8.2) g/dL Albumin 3.1 L (3.4-5.0) g/dL Globulin 4.3 Albumin/Globulin Ratio 0.72 Amylase 62 (25-115) U/L Lipase 213 (73-393) U/L Meds: Medications Discontinued Medications Generic Name Dose Route Start Last Admin Trade Name Freq PRN Reason Stop Dose Admin Heparin Sodium (Porcine) 4,000 units 08/04/20 20:00 08/04/20 20:11 Heparin Sodium 5,000 Units/Ml Vial IVPUSH 08/04/20 20:01 4,000 units .BOLUS ONE Administration Heparin Sodium/Sodium Chloride 25,000 units in 500 mls @ 25.169 mls/hr 08/04/20 20:00 08/04/20 20:20 Heparin 25,000 Units In 1/2 Ns 500 Ml IV 12 units/kg/hr TITRATE DONAVAN 25.169 mls/hr Administration Protocol 12 UNITS/KG/HR Nitroglycerin 0.4 mg 08/04/20 19:03 Nitroglycerin 0.4 Mg Tab.Sl SL 08/04/20 19:04 ONETIME ONE Sodium Chloride 10 ml 08/04/20 18:34 08/04/20 19:21 Sodium Chloride 0.9% 10 Ml Syringe FLUSH 10 ml ASDIRECTED PRN Administration Keep Vein Open Departure - Departure Time of Disposition: 20:55 Disposition: DC/Tfer to [facility] 02 Reason for Transfer *Q: Other Condition: Fair Clinical Impression: NSTEMI (non-ST elevated myocardial infarction), Dialysis patient Referrals: PCP,None [Primary Care Provider] - Forms: ED Department Discharge Sepsis Event Note (ED) - Evaluation Sepsis Screening Result: No Definite Risk - Focused Exam Vital Signs: Vital Signs Temp Pulse Resp BP Pulse Ox 08/04/20 19:37 100 08/04/20 19:04 99.0 F 64 20 114/50 L 95
[2020-08-04] MEDS ORDERED: Heparin Sodium 5,000 Units/ML Vial IVPUSH ONE (20:00)
[2020-08-04] MEDS ORDERED: Heparin Sodium/0.45% NaCl 25,000 UNITS/500 ML BAG IV SCH (20:00)
== END 2020-08-04 20:46 ==
LOC: DL.ED 18:31
DX: I21.4 Non-ST elevation (NSTEMI) myocardial infarction (principal); E78.00 Pure hypercholesterolemia, unspecified; I11.0 Hypertensive heart disease with heart failure; I50.9 Heart failure, unspecified; I25.2 Old myocardial infarction; E11.9 Type 2 diabetes mellitus without complications; Z99.2 Dependence on renal dialysis; Z88.6 Allergy status to analgesic agent; Z91.018 Allergy to other foods; Z91.012 Allergy to eggs; Z79.02 Long term (current) use of antithrombotics/antiplatelets; Z79.899 Other long term (current) drug therapy; Z95.5 Presence of coronary angioplasty implant and graft; Z20.822 Contact with and (suspected) exposure to COVID-19
CPT/HCPCS: 36415; 71045; 80053; 82150; 83690; 83735; 83880; 84100; 84484; 85025; 85610; 85730; 93005; 96365; 99285; J1644; U0002; 93010

== ENCOUNTER 2021-01-05 21:20 | Inpatient (IN) | payer MEDICARE, MEDICAID ==
--- NOTE | 2021-01-05 22:03 | CR ---
PROCEDURE INFORMATION: Exam: XR Chest Exam date and time: 01/05/2021 9:42 PM Age: 70 years old Clinical indication: Pain; Left-sided; Additional info: Chest pain TECHNIQUE: Imaging protocol: XR of the chest. Views: 1 view. COMPARISON: CR Chest 1V Frontal 08/04/2020 7:14 PM FINDINGS: Tubes, catheters and devices: Cardiac lead wires are present. Lungs: The obliquely oriented area of increased density extending from lateral to the right hilus to the right costophrenic angle is unchanged. This was called calcified pleural plaque on the previous CT which is unavailable at this time. Pleural spaces: The previous study also showed a noncalcified nodular density in the left upper lobe measuring 6 mm. The same area now measures 11 mm and this would be compatible with tumor. Heart/Mediastinum: Unremarkable. No cardiomegaly. Bones/joints: Unremarkable. IMPRESSION: Stable findings right chest. 2. Enlarging nodular density left upper lobe compatible with tumor.
--- NOTE | 2021-01-05 22:10 | EDM.PDOC ---
ED HPI GENERAL MEDICAL PROBLEM - General Chief Complaint: Cardiovascular Problem Stated Complaint: AMBULANCE Time Seen by Provider: 01/05/21 21:30 Source of Information: Reports: Patient, Old Records, RN, RN Notes Reviewed History Limitations: Reports: No Limitations - History of Present Illness INITIAL COMMENTS - FREE TEXT/NARRATIVE: Davey is a 70 y/o male with history of ESRD on hemodialysis who presents to the ED via [facility] with complaints of chest pain. The patient states he first noted the chest pain at approximately 1600 this afternoon while driving. He characterizes the pain as sharp, originating in the midsternal region and radiating into the left arm. The patient notes he did not take his medications today due to receiving hip injections in [place]. He denies recent illness, fever, shaking chills, palpitations, nausea, vomiting, or abdominal pain. The patient denies recent alcohol, tobacco, or recreational drug use. He notes his dialysis days are Mondays/Wednesdays/Fridays; he states he has not missed any treatments. The patient received 2 doses of Nitro and Fentanyl 50mcg en route which reduced his chest pain to a 6/10 Middle Mid-Sternal Chest Pain Score (Numeric/FACES): 6 - Related Data Allergies Allergy/AdvReac Type Severity Reaction Status Date / Time aspirin Allergy Severe Swollen Verified 01/05/21 21:30 Tongue chicken derived Allergy Rash Verified 01/05/21 21:30 egg Allergy Rash Verified 01/05/21 21:30 fish derived Allergy Rash Verified 01/05/21 21:30 ibuprofen Allergy Shortness Verified 01/05/21 21:30 of Breath Home Meds: Home Meds atorvaSTATin [Lipitor] 20 mg PO BEDTIME 12/02/15 [History] Metoprolol Tartrate [Lopressor] 50 mg PO BID 01/10/16 [History] amLODIPine [Norvasc] 5 mg PO DAILY 01/10/16 [History] Clopidogrel [Plavix] 75 mg PO DAILY 01/05/17 [History] Bumetanide [Bumex] 2 mg PO DAILY 08/04/20 [History] Midodrine 10 mg PO .MON,WED,FRI 08/04/20 [History] Vitamin B Comp W-C/FA/Zinc [Anamaria B Strong with C & Zinc Tb] 1 each PO DAILY 08/04/20 [History] Calcium Acetate [PhosLo] 667 mg PO TIDMEALS 01/06/21 [History] Calcium Acetate [PhosLo] 667 mg PO TIDMEALS 01/06/21 [Rx] Calcium Carbonate [Tums] 500 mg PO TIDMEALS 01/06/21 [History] Nitroglycerin [Nitrostat] 0.4 mg SL ASDIRECTED PRN tab.sl 01/06/21 [Rx] Zolpidem [Ambien] 5 mg PO BEDTIME PRN tablet 01/06/21 [Rx] lisinopriL [Prinivil] 10 mg PO DAILY tablet 01/06/21 [Rx] Past Medical History HEENT History: Reports: Cataract, Hard of Hearing, Impaired Vision Cardiovascular History: Reports: Aneurysm, Heart Failure, High Cholesterol, Hypertension, MS, Stents Other Cardiovascular History: PATIENT REPORTS HTN CONTROLLED BY DIALYSIS NO FURTHER MEDICATIONS ADMIN Respiratory History: Reports: None, Other (See Below) Other Respiratory History: only sleeps 2 hours a day. Gastrointestinal History: Reports: None, Cholelithiasis Genitourinary History: Reports: Dialysis, Other (See Below) Other Genitourinary History: Has dialysis tomorrow. Musculoskeletal History: Reports: Arthritis, Back Pain, Chronic Neurological History: Reports: None Psychiatric History: Reports: None Endocrine/Metabolic History: Reports: Diabetes, Type II Hematologic History: Reports: Anemia Immunologic History: Reports: None Oncologic (Cancer) History: Reports: None Dermatologic History: Reports: None - Infectious Disease History Infectious Disease History: Reports: Chicken Pox, Measles, Mumps, TB - Past Surgical History HEENT Surgical History: Reports: Cataract Surgery, Naso-Sinus Surgery, Oral Surgery Cardiovascular Surgical History: Reports: Carotid Endarterectomy, Carotid Stents Other Cardiovascular Surgeries/Procedures: percutaneous cath, angioplasty Respiratory Surgical History: Reports: None GI Surgical History: Reports: Colonoscopy, EGD Male Surgical History: Reports: None Endocrine Surgical History: Reports: None Neurological Surgical History: Reports: None Musculoskeletal Surgical History: Reports: None Dermatological Surgical History: Reports: None Social & Family History - Family History Family Medical History: No Pertinent Family History Cardiac: Reports: Afib, Angina, CAD, Cardiomyopathy, Heart Failure, High Cholesterol, Hypertension, MS, Prior Cardiac Arrest Respiratory: Reports: COPD : Reports: Dialysis, Renal Disease/Insufficiency Musculoskeletal: Reports: Arthritis Neurological: Reports: CVA Endocrine/Metabolic: Reports: Diabetes, type II - Tobacco Use Tobacco Use Status *Q: Never Tobacco User - Caffeine Use Caffeine Use: Reports: Coffee, Soda, Tea, Other - Recreational Drug Use Recreational Drug Use: No - Living Situation & Occupation Living situation: Reports: Occupation: Retired ED ROS GENERAL - Review of Systems Review Of Systems: Comprehensive ROS is negative, except as noted in HPI. ED EXAM, GENERAL - Physical Exam Exam: See Below Exam Limited By: No Limitations General Appearance: Alert, Mild Distress (Chest pain), Obese Eye Exam: Bilateral Eye: EOMI, Normal Inspection, PERRL (3mm) Ears: Normal External Exam, Hearing Grossly Normal Nose: Normal Inspection, Normal Mucosa, No Blood Throat/Mouth: Normal Inspection, Normal Oropharynx, Normal Voice, No Airway Compromise Head: Atraumatic, Normocephalic Neck: Normal Inspection, Supple, Non-Tender, Full Range of Motion Respiratory/Chest: No Respiratory Distress, Lungs Clear, Normal Breath Sounds, No Accessory Muscle Use. No: Chest Non-Tender, Crackles, Rales, Rhonchi, Wheezing, Stridor Cardiovascular: Normal Peripheral Pulses, Regular Rate, Rhythm, No Gallop, No Rub, JVD, Tachycardia, Systolic Murmur (4/6, loudest over the pulmonic area; No radiation into carotids). No: No Edema Peripheral Pulses: 2+: Radial (L), Radial (R) GI/Abdominal: Normal Bowel Sounds, Soft, Non-Tender, No Distention, No Abnormal Bruit, No Mass, Pelvis Stable. No: Guarding, Rigid, Rebound (Male) Exam: Deferred Rectal (Males) Exam: Deferred Back Exam: Normal Inspection, Full Range of Motion Extremities: Normal Range of Motion, Normal Capillary Refill, Pedal Edema (+1 pitting, bilaterally), Other (Fistula with bruit and thrill to left upper arm). No: Joint Swelling, Increased Warmth, Mottled, Pallor, Redness Neurological: Alert, Oriented, CN II-XII Intact, Normal Cognition, No Motor/Sensory Deficits Psychiatric: Normal Affect, Normal Mood Skin Exam: Warm, Dry, Intact, Normal Color, No Rash. No: Cyanosis, Diaphoretic, Jaundice, Mottled, Pallor #1 Interpretation EKG Date: 01/05/21 Time: 21:27 Rhythm: Other (Sinus Tachycardia) Rate (Beats/Min): [address] [place]: Normal P-Wave: Present QRS: Normal ST-T: Depressed (II, III, aVF, V2-V5) QT: Normal (0.479) DC/PQ Interval: 0.155 Comparison: Change From Previous EKG ((08-05-20)) EKG Interpretation Comments: Sinus Tachycardia; Mild ST depression II, III, aVF, V2-V5 #2 Interpretation EKG Date: 01/06/21 Time: 01:15 Rhythm: NSR Rate (Beats/Min): 67 [place]: Normal P-Wave: Present QRS: Normal ST-T: Depressed (Mild depression V3, returned to baseline from previous EKG) QT: Normal DC/PQ Interval: 0.128 Comparison: Change From Previous EKG (01/05/21) EKG Interpretation Comments: NSR; ST depression in V3, however returned to baseline from previous EKG; No scottie dence of acute myocardial ischemia Course - Vital Signs Last Recorded V/S: Last Vital Signs Temp 97.3 F 01/07/21 17:11 Pulse 65 01/07/21 17:11 Resp 18 01/07/21 17:11 BP 159/57 H 01/07/21 17:11 Pulse Ox 95 01/07/21 17:11 - Orders/Labs/Meds Labs: Laboratory Tests 01/05/21 01/05/21 01/05/21 Range/Units 21:50 21:50 21:50 WBC 6.4 (5.0-10.0) 10^3/uL RBC 3.54 L (4.6-6.2) 10^6/uL Hgb 10.0 L (14.0-18.0) g/dL Hct 31.6 L (40.0-54.0) % MCV 89.3 (80-100) fL MCH 28.2 (27.0-34.0) pg MCHC 31.6 L (33.0-35.0) g/dL Plt Count 238 (150-450) 10^3/uL Neut % (Auto) 95.1 H (42.2-75.2) % Lymph % (Auto) 3.7 L (20.5-50.1) % Heard % (Auto) 0.9 L (2-8) % Eos % (Auto) 0.0 L (1.0-3.0) % Baso % (Auto) 0.3 (0.0-1.0) % PT 10.1 (9.0-12.0) SEC INR 1.0 (0.9-1.2) APTT 26.4 (22.0-34.0) SEC Sodium 142 (136-145) mmol/L Potassium 4.3 (3.5-5.1) mmol/L Chloride 102 (98-107) mmol/L Carbon Dioxide 26 (21-32) mmol/L Anion Gap 18.3 H (7-13) mEq/L BUN 39 H (7-18) mg/dL Creatinine 7.73 H* (0.70-1.30) mg/dL Est Cr Clr Drug Dosing 9.31 mL/min Estimated GFR (MDRD) 7 BUN/Creatinine Ratio 5.0 (No establ ref range) Glucose 239 H (70-99) mg/dL Calcium 8.6 (8.5-10.1) mg/dL Magnesium 1.9 (1.8-2.4) mg/dL Total Bilirubin 0.3 (0.2-1.0) mg/dL AST 11 L (15-37) U/L ALT 16 (16-63) U/L Alkaline Phosphatase 184 H (46-116) U/L Troponin I High Sens 166 H* (<=76) pg/mL C-Reactive Protein 0.3 (0.0-0.9) mg/dL B-Natriuretic Peptide 1970 H (0-100) pg/ml Total Protein 7.5 (6.4-8.2) g/dL Albumin 3.2 L (3.4-5.0) g/dL Globulin 4.3 Albumin/Globulin Ratio 0.74 Amylase 53 (25-115) U/L Lipase 150 (73-393) U/L Ethyl Alcohol < 3 (0) mg/dL 01/06/21 Range/Units 01:50 WBC (5.0-10.0) 10^3/uL RBC (4.6-6.2) 10^6/uL Hgb (14.0-18.0) g/dL Hct (40.0-54.0) % MCV (80-100) fL MCH (27.0-34.0) pg MCHC (33.0-35.0) g/dL Plt Count (150-450) 10^3/uL Neut % (Auto) (42.2-75.2) % Lymph % (Auto) (20.5-50.1) % Heard % (Auto) (2-8) % Eos % (Auto) (1.0-3.0) % Baso % (Auto) (0.0-1.0) % PT (9.0-12.0) SEC INR (0.9-1.2) APTT (22.0-34.0) SEC Sodium (136-145) mmol/L Potassium (3.5-5.1) mmol/L Chloride (98-107) mmol/L Carbon Dioxide (21-32) mmol/L Anion Gap (7-13) mEq/L BUN (7-18) mg/dL Creatinine (0.70-1.30) mg/dL Est Cr Clr Drug Dosing mL/min Estimated GFR (MDRD) BUN/Creatinine Ratio (No establ ref range) Glucose (70-99) mg/dL Calcium (8.5-10.1) mg/dL Magnesium (1.8-2.4) mg/dL Total Bilirubin (0.2-1.0) mg/dL AST (15-37) U/L ALT (16-63) U/L Alkaline Phosphatase (46-116) U/L Troponin I High Sens 4690 H* (<=76) pg/mL C-Reactive Protein (0.0-0.9) mg/dL B-Natriuretic Peptide (0-100) pg/ml Total Protein (6.4-8.2) g/dL Albumin (3.4-5.0) g/dL Globulin Albumin/Globulin Ratio Amylase (25-115) U/L Lipase (73-393) U/L Ethyl Alcohol (0) mg/dL Meds: Medications Discontinued Medications Generic Name Dose Route Start Last Admin Trade Name Freq PRN Reason Stop Dose Admin Amlodipine Besylate 5 mg 01/05/21 22:30 01/05/21 22:37 Amlodipine 5 Mg Tab PO 01/05/21 22:31 5 mg ONETIME ONE Administration Amlodipine Besylate 5 mg 01/06/21 12:00 01/07/21 08:08 Amlodipine 5 Mg Tab PO 5 mg DAILY DONAVAN Administration Atorvastatin Calcium 20 mg 01/06/21 21:00 01/06/21 20:35 Atorvastatin 20 Mg Tab PO 20 mg BEDTIME DONAVAN Administration Bumetanide 2 mg 01/05/21 22:29 01/05/21 22:37 Bumetanide 1 Mg Tab PO 01/05/21 22:30 2 mg ONETIME ONE Administration Bumetanide 2 mg 01/06/21 12:00 01/07/21 08:08 Bumetanide 1 Mg Tab PO 2 mg DAILY DONAVAN Administration Calcium Carbonate/Glycine 500 mg 01/06/21 12:00 01/07/21 17:13 Calcium Carbonate 500 Mg Tab.Chew PO Not Given TIDMEALS DONAVAN Clopidogrel Bisulfate 75 mg 01/06/21 13:00 01/07/21 08:09 Clopidogrel 75 Mg Tab PO 75 mg DAILY DONAVAN Administration Heparin Sodium (Porcine) Confirm 01/06/21 02:43 01/06/21 02:56 Heparin Sodium 5,000 Units/Ml Vial Administered 01/06/21 02:44 Not Given Dose 5,000 units .ROUTE .STK-MED ONE Heparin Sodium (Porcine) 4,000 units 01/06/21 02:49 01/06/21 02:46 Heparin Sodium 5,000 Units/Ml Vial IVPUSH 01/06/21 02:50 4,000 units .BOLUS ONE Administration Heparin Sodium (Porcine) Confirm 01/06/21 23:02 01/06/21 23:16 Heparin Sodium 5,000 Units/Ml Vial Administered 01/06/21 23:03 Not Given Dose 5,000 units .ROUTE .STK-MED ONE Heparin Sodium (Porcine) 1,000 units 01/06/21 23:09 01/06/21 23:31 Heparin Sodium 5,000 Units/Ml Vial IVPUSH 01/06/21 23:10 1,000 units .BOLUS ONE Administration Heparin Sodium/Sodium Chloride Confirm 01/06/21 02:43 01/06/21 02:57 Heparin 25,000 Units In 1/2 Ns 500 Ml Administered 01/06/21 02:44 Not Given Dose 500 mls @ as directed .ROUTE .STK-MED ONE Heparin Sodium/Sodium Chloride 25,000 units in 500 mls @ 18.33 mls/hr 01/06/21 03:00 01/07/21 02:01 Heparin 25,000 Units In 1/2 Ns 500 Ml IV 15 units/kg/hr TITRATE DONAVAN 30.549 mls/hr Administration Protocol 9 UNITS/KG/HR Lisinopril 10 mg 01/06/21 13:00 01/06/21 13:41 Lisinopril 10 Mg Tab PO 10 mg DAILY DONAVAN Administration Metoprolol Tartrate 50 mg 01/05/21 22:29 01/05/21 22:37 Metoprolol Tartrate 50 Mg Tab PO 01/05/21 22:30 50 mg ONETIME ONE Administration Metoprolol Tartrate 50 mg 01/06/21 12:00 01/07/21 08:08 Metoprolol Tartrate 50 Mg Tab PO 50 mg BID DONAVAN Administration Morphine Sulfate 1 mg 01/05/21 22:30 01/05/21 22:35 Morphine 2 Mg/Ml Syringe IVPUSH 01/05/21 22:31 1 mg ONETIME ONE Administration Morphine Sulfate 2 mg 01/06/21 03:15 01/06/21 09:13 Morphine 2 Mg/Ml Syringe IVPUSH 2 mg Q2H PRN Administration Chest Pain Nitroglycerin 0.4 mg 01/06/21 03:16 Nitroglycerin 0.4 Mg Tab.Sl SL ASDIRECTED PRN Chest Pain Calcium Acetate [ 667 mg 01/06/21 12:00 01/07/21 17:13 Phoslo] 667 Mg Cap PO Not Given [facility]MEALS [facility] Ondansetron HCl 4 mg 01/06/21 09:25 Ondansetron 4 Mg Tab.Dis PO Q4H PRN nausea, able to take PO Oxycodone HCl 10 mg 01/06/21 09:21 Oxycodone 5 Mg Tab PO QID PRN Pain Vitamin B Complex 1 each 01/06/21 12:00 01/07/21 08:09 Vitamin B Complex Cap PO 1 each DAILY DONAVAN Administration Zolpidem Tartrate 5 mg 01/06/21 09:25 Zolpidem 5 Mg Tab PO BEDTIME PRN Sleep - Radiology Interpretation Free Text/Narrative:: [facility] Final Radiology Report Call: [phone] assistance Online chat: [email or web address] Name: DAVEY ARMIJO Age: 70Years M Date: 01/05/2021 SSN: -- : [id number] Study: CR CHEST 1V FRONTAL Requesting Physician: Candy Montero Images: 1 Addl Studies: Provided Clinical History: Chest pain Contrast: Contrast Medium: Contrast Amount: Contrast Method: Page 1 of 2 PROCEDURE INFORMATION: Exam: XR Chest Exam date and time: 01/05/2021 9:42 PM Age: 70 years old Clinical indication: Pain; Left-sided; Additional info: Chest pain TECHNIQUE: Imaging protocol: XR of the chest. Views: 1 view. COMPARISON: CR Chest 1V Frontal 08/04/2020 7:14 PM FINDINGS: Tubes, catheters and devices: Cardiac lead wires are present. Lungs: The obliquely oriented area of increased density extending from lateral to the right hilus to the right costophrenic angle is unchanged. This was called calcified pleural plaque on the previous CT which is unavailable at this time. Pleural spaces: The previous study also showed a noncalcified nodular density in the left upper lobe measuring 6 mm. The same area now measures 11 mm and this would be compatible with tumor. Heart/Mediastinum: Unremarkable. No cardiomegaly. Bones/joints: Unremarkable. IMPRESSION: Stable findings right chest. 2. Enlarging nodular density left upper lobe compatible with tumor. Thank you for allowing us to participate in the care of your patient. Dictated and Authenticated by: Presley Coronel MD 01/05/2021 10:03 PM Central Time ([place] & [place]) - Re-Assessments/Exams Free Text/Narrative Re-Assessment/Exam: 01/06/21 Morphin 1mg IVP administered for chest pain. Home medications administered. Troponin elevated with no evidence of ST elevation, will repeat troponin in 4 hours. Patient moved to extended stay. Findings of examination, lab work, and imaging, including pulmonary nodules, reviewed with patient. Patient verbalized understanding and agreement with the plan of care. Repeat troponin elevated to 4690. Case discussed with [facility], including EKG sent to cardiology, who are only able to accept STEMI, stroke, and trauma at this time. Patient placed on waiting list. Heparin gtt and bolus initiated. Case discussed with [facility], [facility], [facility], and [facility] who are all full with the exception of trauma, stroke, and STEMI. Case discussed with Dr. Steen for inpatient admission to hold until transfer available. Dr. Steen kindly accepted patient for admission. Patient verbalized understanding and agreement with the plan of care. Departure - Departure Time of Disposition: 03:20 Disposition: Admitted As Inpatient 67 Reason for Transfer *Q: Primary PCI Indicated Condition: Serious Clinical Impression: Elevated troponin, History of end stage renal disease, Hemodialysis patient, Pulmonary nodule seen on imaging study Chest pain Qualifiers: Chest pain type: unspecified Qualified Code(s): R07.9 - Chest pain, unspecified Sepsis Event Note (ED) - Evaluation Sepsis Screening Result: No Definite Risk
[2021-01-05 22:16] LABS: ANION GAP 18.3 mEq/L (7-13); CHLORIDE,CL 102 mmol/L (98-107); SODIUM,NA 142 mmol/L (136-145)
[2021-01-05 22:25] LABS: PTT,PARTIAL THROMBOPLSTIN TIME 26.4 SEC (22.0-34.0)
[2021-01-05] MEDS ORDERED: Bumetanide 1 MG Tab PO ONE (22:29)
[2021-01-05] MEDS ORDERED: Metoprolol Tartrate 50 MG Tab PO ONE (22:29)
[2021-01-05] MEDS ORDERED: amLODIPine 5 MG Tab PO ONE (22:30)
[2021-01-05] MEDS ORDERED: Morphine 2 MG/ML SYRINGE IVPUSH ONE (22:30)
[2021-01-06] MEDS ORDERED: Heparin Sodium/0.45% NaCl 500 ML ONE (02:43)
[2021-01-06] MEDS: Heparin Sodium 5,000 Units/ML Vial IVPUSH ONE ×2 (02:46→02:54)
[2021-01-06] MEDS: Heparin Sodium 5,000 Units/ML Vial ONE ×2 (02:49→02:56)
[2021-01-06] MEDS: Heparin Sodium/0.45% NaCl 25,000 UNITS/500 ML BAG IV SCH (02:52)
[2021-01-06] MEDS ORDERED: Morphine 2 MG/ML SYRINGE IVPUSH PRN (03:15)
[2021-01-06] MEDS ORDERED: Nitroglycerin 0.4 MG Tab.SL SL PRN (03:16)
--- NOTE | 2021-01-06 08:54 | PCM.HP ---
H&P History of Present Illness - General Date of Service: 01/06/21 Admit Problem/Dx: Admission Diagnosis/Problem Admission Diagnosis/Problem Chest pain - History of Present Illness Other HPI/Comments: Davey is a 70 y/o male with history of CAD S/P stenting, HTN, Hyperlipidemia and ESRD on hemodialysis who presented to the ED via [facility] with complaints of chest pain. The patient states he first noted the chest pain at approximately 1600 this afternoon while driving back from [place]. He had gone for a spine appointment and received some shots to his lower back. As he was driving back he experienced a sudden onset of sharp pain, originating in the midsternal region and radiating into the left arm with associated SOB. The intensity was a 9/10. 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 He finally was able to make it to his ex-'s house who then called the EMS. He had his first acute [place] in the late s. Since then he has had at least three episodes of severe chest pain that required hospitalizations at [facility] where he had cardiology evaluation and stent placement. He says he has about 6 cardiac stents. He occasionally continues to get mild episodes of chest pain from time to time but these usually last only a few minutes and resolve on their own. His episode yesterday lasted about 45 minutes and only resolved in the ED after he had received Nitro and Fentanyl. Pt is due for HD today. He denies having any fever or chills. Middle Mid-Sternal Chest Pain Score (Numeric/FACES): 6 - Related Data Allergies/Adverse Reactions: Allergies Allergy/AdvReac Type Severity Reaction Status Date / Time aspirin Allergy Severe Swollen Verified 01/05/21 21:30 Tongue chicken derived Allergy Rash Verified 01/05/21 21:30 egg Allergy Rash Verified 01/05/21 21:30 fish derived Allergy Rash Verified 01/05/21 21:30 ibuprofen Allergy Shortness Verified 01/05/21 21:30 of Breath Home Medications: Home Meds atorvaSTATin [Lipitor] 1 tab PO BEDTIME 12/02/15 [History] Lisinopril 5 mg PO BID 12/25/15 [History] Metoprolol Tartrate [Lopressor] 50 mg PO BID 01/10/16 [History] amLODIPine [Norvasc] 5 mg PO DAILY 01/10/16 [History] Clopidogrel [Plavix] 75 mg PO DAILY 01/05/17 [History] Bumetanide [Bumex] 2 mg PO DAILY 08/04/20 [History] Midodrine 10 mg PO .MON,WED,Sat08/04/20 [History] Vitamin B Comp W-C/FA/Zinc [Anamaria B Strong with C & Zinc Tb] 1 each PO DAILY 08/04/20 [History] Calcium Acetate [PhosLo] 667 mg PO TIDMEALS 01/06/21 [History] Calcium Carbonate [Tums] 500 mg PO TIDMEALS 01/06/21 [History] oxyCODONE 10 mg PO QID PRN 01/06/21 [History] Past Medical History HEENT History: Reports: Cataract, Hard of Hearing, Impaired Vision Cardiovascular History: Reports: Aneurysm, Heart Failure, High Cholesterol, Hypertension, [place], Stents Other Cardiovascular History: PATIENT REPORTS HTN CONTROLLED BY DIALYSIS NO FURTHER MEDICATIONS ADMIN Respiratory History: Reports: None, Other (See Below) Other Respiratory History: only sleeps 2 hours a day. Gastrointestinal History: Reports: None, Cholelithiasis Genitourinary History: Reports: Dialysis, Other (See Below) Other Genitourinary History: Has dialysis tomorrow. Musculoskeletal History: Reports: Arthritis, Back Pain, Chronic Neurological History: Reports: None Psychiatric History: Reports: None Endocrine/Metabolic History: Reports: Diabetes, Type II Hematologic History: Reports: Anemia Immunologic History: Reports: None Oncologic (Cancer) History: Reports: None Dermatologic History: Reports: None - Infectious Disease History Infectious Disease History: Reports: Chicken Pox, Measles, Mumps, TB - Past Surgical History HEENT Surgical History: Reports: Cataract Surgery, Naso-Sinus Surgery, Oral Surgery Cardiovascular Surgical History: Reports: Carotid Endarterectomy, Carotid Stents Other Cardiovascular Surgeries/Procedures: percutaneous cath, angioplasty Respiratory Surgical History: Reports: None GI Surgical History: Reports: Colonoscopy, EGD Male Surgical History: Reports: None Endocrine Surgical History: Reports: None Neurological Surgical History: Reports: None Musculoskeletal Surgical History: Reports: None Dermatological Surgical History: Reports: None Social & Family History - Family History Family Medical History: No Pertinent Family History Cardiac: Reports: Afib, Angina, CAD, Cardiomyopathy, Heart Failure, High Cholesterol, Hypertension, [place], Prior Cardiac Arrest Respiratory: Reports: COPD : Reports: Dialysis, Renal Disease/Insufficiency Musculoskeletal: Reports: Arthritis Neurological: Reports: CVA Endocrine/Metabolic: Reports: Diabetes, type II - Tobacco Use Tobacco Use Status *Q: Never Tobacco User - Caffeine Use Caffeine Use: Reports: Coffee, Soda, Tea, Other - Recreational Drug Use Recreational Drug Use: No - Living Situation & Occupation Living situation: Reports: Occupation: Retired H&P Review of Systems - Review of Systems: Review Of Systems: See Below Free Text/Narrative: Constitutional: Patient denies having any fever, chills,malaise or weight loss CVS: As per HPI. He denies any orthopnea or PND. He has some pedal edema Lungs: Denies having any cough, abdomen: Denies any nausea, wheezes or shortness of breath Abdomen: Denies having any nausea, vomiting or abdominal pain and no change in bowel habits no hematochezia Genitourinary: Denies any dysuria, frequency, urgency or hematuria Neuro: denies any seizures, tremors or focal weakness. psych: denies having any hallucinations, feeling suicidal or depressed. Exam - Exam Exam: See Below - Vital Signs Vital Signs: Last Vital Signs Temp 98.2 F 01/06/21 07:48 Pulse 71 01/06/21 07:48 Resp 16 01/06/21 07:48 BP 147/55 H 01/06/21 07:48 Pulse Ox 95 01/06/21 07:48 Weight: 223 lb 9.6 oz - Exam Physical Exam Comments:: General: Obese elderly male. In no acute distress. Able to answer questions appropriately. HEENT:NC, AT,PERRLA, EOMI CVS: S1S2 appreciated. RRR, no murmurs, rubs or gallops. lungs: clear bilaterally, no rales or wheezes. pa: soft, non tender. bowel sounds present ext: no clubbing, cyanosis or edema neuro: no focal deficits. strength 5/5 bilaterally. Gait is steady. sensation is intact. - Patient Data Lab Results Last 24 hrs: Laboratory Results - last 24 hr 01/05/21 01/05/21 01/05/21 Range/Units 21:50 21:50 21:50 WBC 6.4 (5.0-10.0) 10^3/uL RBC 3.54 L (4.6-6.2) 10^6/uL Hgb 10.0 L (14.0-18.0) g/dL Hct 31.6 L (40.0-54.0) % MCV 89.3 (80-100) fL MCH 28.2 (27.0-34.0) pg MCHC 31.6 L (33.0-35.0) g/dL Plt Count 238 (150-450) 10^3/uL Neut % (Auto) 95.1 H (42.2-75.2) % Lymph % (Auto) 3.7 L (20.5-50.1) % [place] % (Auto) 0.9 L (2-8) % Eos % (Auto) 0.0 L (1.0-3.0) % Baso % (Auto) 0.3 (0.0-1.0) % PT 10.1 (9.0-12.0) SEC INR 1.0 (0.9-1.2) APTT 26.4 (22.0-34.0) SEC Sodium 142 (136-145) mmol/L Potassium 4.3 (3.5-5.1) mmol/L Chloride 102 (98-107) mmol/L Carbon Dioxide 26 (21-32) mmol/L Anion Gap 18.3 H (7-13) mEq/L BUN 39 H (7-18) mg/dL Creatinine 7.73 H* (0.70-1.30) mg/dL Est Cr Clr Drug Dosing 9.31 mL/min Estimated GFR (MDRD) 7 BUN/Creatinine Ratio 5.0 (No establ ref range) Glucose 239 H (70-99) mg/dL POC Glucose (70-99) mg/dL Calcium 8.6 (8.5-10.1) mg/dL Magnesium 1.9 (1.8-2.4) mg/dL Total Bilirubin 0.3 (0.2-1.0) mg/dL AST 11 L (15-37) U/L ALT 16 (16-63) U/L Alkaline Phosphatase 184 H (46-116) U/L Troponin I High Sens 166 H* (<=76) pg/mL C-Reactive Protein 0.3 (0.0-0.9) mg/dL B-Natriuretic Peptide 1970 H (0-100) pg/ml Total Protein 7.5 (6.4-8.2) g/dL Albumin 3.2 L (3.4-5.0) g/dL Globulin 4.3 Albumin/Globulin Ratio 0.74 Amylase 53 (25-115) U/L Lipase 150 (73-393) U/L Ethyl Alcohol < 3 (0) mg/dL SARS-CoV-2 RNA (CLINT) (NEGATIVE) 01/06/21 01/06/21 01/06/21 Range/Units 01:50 04:08 06:20 WBC (5.0-10.0) 10^3/uL RBC (4.6-6.2) 10^6/uL Hgb (14.0-18.0) g/dL Hct (40.0-54.0) % MCV (80-100) fL MCH (27.0-34.0) pg MCHC (33.0-35.0) g/dL Plt Count (150-450) 10^3/uL Neut % (Auto) (42.2-75.2) % Lymph % (Auto) (20.5-50.1) % [place] % (Auto) (2-8) % Eos % (Auto) (1.0-3.0) % Baso % (Auto) (0.0-1.0) % PT (9.0-12.0) SEC INR (0.9-1.2) APTT (22.0-34.0) SEC Sodium (136-145) mmol/L Potassium (3.5-5.1) mmol/L Chloride (98-107) mmol/L Carbon Dioxide (21-32) mmol/L Anion Gap (7-13) mEq/L BUN (7-18) mg/dL Creatinine (0.70-1.30) mg/dL Est Cr Clr Drug Dosing mL/min Estimated GFR (MDRD) BUN/Creatinine Ratio (No establ ref range) Glucose (70-99) mg/dL POC Glucose (70-99) mg/dL Calcium (8.5-10.1) mg/dL Magnesium (1.8-2.4) mg/dL Total Bilirubin (0.2-1.0) mg/dL AST (15-37) U/L ALT (16-63) U/L Alkaline Phosphatase (46-116) U/L Troponin I High Sens 4690 H* 6125 H* (<=76) pg/mL C-Reactive Protein (0.0-0.9) mg/dL B-Natriuretic Peptide (0-100) pg/ml Total Protein (6.4-8.2) g/dL Albumin (3.4-5.0) g/dL Globulin Albumin/Globulin Ratio Amylase (25-115) U/L Lipase (73-393) U/L Ethyl Alcohol (0) mg/dL SARS-CoV-2 RNA (CLINT) Negative (NEGATIVE) 01/06/21 Range/Units 07:29 WBC (5.0-10.0) 10^3/uL RBC (4.6-6.2) 10^6/uL Hgb (14.0-18.0) g/dL Hct (40.0-54.0) % MCV (80-100) fL MCH (27.0-34.0) pg MCHC (33.0-35.0) g/dL Plt Count (150-450) 10^3/uL Neut % (Auto) (42.2-75.2) % Lymph % (Auto) (20.5-50.1) % [place] % (Auto) (2-8) % Eos % (Auto) (1.0-3.0) % Baso % (Auto) (0.0-1.0) % PT (9.0-12.0) SEC INR (0.9-1.2) APTT (22.0-34.0) SEC Sodium (136-145) mmol/L Potassium (3.5-5.1) mmol/L Chloride (98-107) mmol/L Carbon Dioxide (21-32) mmol/L Anion Gap (7-13) mEq/L BUN (7-18) mg/dL Creatinine (0.70-1.30) mg/dL Est Cr Clr Drug Dosing mL/min Estimated GFR (MDRD) BUN/Creatinine Ratio (No establ ref range) Glucose (70-99) mg/dL POC Glucose 126 H (70-99) mg/dL Calcium (8.5-10.1) mg/dL Magnesium (1.8-2.4) mg/dL Total Bilirubin (0.2-1.0) mg/dL AST (15-37) U/L ALT (16-63) U/L Alkaline Phosphatase (46-116) U/L Troponin I High Sens (<=76) pg/mL C-Reactive Protein (0.0-0.9) mg/dL B-Natriuretic Peptide (0-100) pg/ml Total Protein (6.4-8.2) g/dL Albumin (3.4-5.0) g/dL Globulin Albumin/Globulin Ratio Amylase (25-115) U/L Lipase (73-393) U/L Ethyl Alcohol (0) mg/dL SARS-CoV-2 RNA (CLINT) (NEGATIVE) Result Diagrams: 01/05/21 21:50 01/05/21 21:50 - Problem List (1) Acute coronary syndrome SNOMED Code(s): 825709690 ICD Code: I24.9 - ACUTE ISCHEMIC HEART DISEASE, UNSPECIFIED Status: Acute Current Visit: No (2) History of end stage renal disease SNOMED Code(s): 787618785 ICD Code: Z87.448 - PERSONAL HISTORY OF OTHER DISEASES OF URINARY SYSTEM Status: Acute Current Visit: Yes (3) HTN (hypertension) SNOMED Code(s): 17225274 ICD Code: I10 - ESSENTIAL (PRIMARY) HYPERTENSION Status: Acute Current Visit: Yes (4) Hyperlipidemia SNOMED Code(s): 22320806 ICD Code: E78.5 - HYPERLIPIDEMIA, UNSPECIFIED Status: Acute Current Visit: Yes (5) DVT prophylaxis SNOMED Code(s): 013611959, 085551360 ICD Code: Z29.9 - ENCOUNTER FOR PROPHYLACTIC MEASURES, UNSPECIFIED Status: Acute Current Visit: Yes (6) Lung nodule SNOMED Code(s): 431739296 ICD Code: R91.1 - SOLITARY PULMONARY NODULE Status: Acute Current Visit: Yes (7) Full code status SNOMED Code(s): 005736652 ICD Code: Z78.9 - OTHER SPECIFIED HEALTH STATUS Status: Acute Current Visit: Yes Problem List Initiated/Reviewed/Updated: Yes Orders Last 24hrs: Active Orders 24 hr Category Date Time Status Admission Diagnosis [ADT] Stat ADT 01/06/21 03:18 Ordered Admission Status [Patient Status] [ADT] Routine ADT 01/06/21 03:18 Active Cardiac Monitoring [RC] 08,20 Care 01/06/21 03:18 Active Regular Diet [DIET] Diet 01/06/21 Breakfast Active DRUG SCREEN URINE BIORAD [URCHEM] Urgent Lab 01/05/21 21:37 Ordered UA RFX MARCK AND CULT IF INDIC [URIN] Stat Lab 01/05/21 21:38 Ordered aPTT [PTT,PARTIAL THROMBOPLSTIN TIME] [COAG] Routine Lab 01/06/21 09:00 Ordered Heparin Sodium/0.45% NaCl [Heparin 25,000 Units in 1/2 Med 01/06/21 03:00 Active NS 500 ML] 25,000 units in 500 ml IV TITRATE Morphine Med 01/06/21 03:15 Active 2 mg IVPUSH Q2H PRN Nitroglycerin [Nitrostat] Med 01/06/21 03:16 Active 0.4 mg SL ASDIRECTED PRN Medication Orders Heparin Sodium/Sodium Chloride (Heparin 25,000 Units In 1/2 Ns 500 Ml) 25,000 units in 500 mls @ 18.33 mls/hr IV TITRATE DONAVAN; Protocol Last Admin: 01/06/21 02:52 Dose: 9 units/kg/hr, 18.33 mls/hr Documented by: LOLIS Cosigned by: DENZEL Morphine Sulfate (Morphine 2 Mg/Ml Syringe) 2 mg IVPUSH Q2H PRN PRN Reason: Chest Pain Nitroglycerin (Nitroglycerin 0.4 Mg Tab.Sl) 0.4 mg SL ASDIRECTED PRN PRN Reason: Chest Pain Assessment/Plan Comment:: NSTEMI/ ACS Admit patient to the telemetry floor. Patient started on a heparin drip is awaiting transfer to [facility] for cardiology evaluation Pt is currently angina free. Continue to trend troponin. Antiplatelet therapy, statin. ESRD on HD Will hold HD for today until pt has been seen by cardiology. Left upper lobe lung nodule Pt will need a CT chest with contrast to further characterize this. HTH resume home medications . Hyperlipidemia On statin. Full code status
[2021-01-06] MEDS ORDERED: oxyCODONE 5 MG Tab PO PRN (09:21)
[2021-01-06] MEDS ORDERED: Zolpidem 5 MG Tab PO PRN (09:25)
[2021-01-06] MEDS ORDERED: Ondansetron 4 MG Tab.DIS PO PRN (09:25)
[2021-01-06] MEDS ORDERED: Non-Formulary Medication 1 Each (Midodrine [Midodrine] 5 MG Tablet) PO SCH (09:30)
[2021-01-06] MEDS ORDERED: Lisinopril 10 MG Tab PO SCH ×2 (09:30→13:00)
--- NOTE | 2021-01-06 09:30 | PCM.PRNOTE ---
- Free Text/Narrative Note: EKG done on 01/05/2021 shows sinus tachycardia rate of 104 bpm, there is repolarization abnormality suggesting anterolateral ischemia. Decreased intervals of 105 ms with a QTc interval 479 ms
--- NOTE | 2021-01-06 09:32 | PCM.PRNOTE ---
- Free Text/Narrative Note: 12-lead EKG done on 01/06/2021 shows normal sinus rhythm at a rate of 67 bpm. HI interval 128 ms, QRS QRS 100 ms. There are repolarization abnormalities seen suggesting anterolateral ischemia unchanged from EKG done on 01/05/2021.
--- NOTE | 2021-01-06 11:25 | CT ---
PROCEDURE INFORMATION: Exam: CT Chest Without Contrast; Diagnostic Exam date and time: 01/06/2021 11:05 AM Age: 70 years old Clinical indication: Other: Lung mass, no iv contrast per [facility] protocol due to elevated creatinine and low gfr TECHNIQUE: Imaging protocol: Diagnostic computed tomography of the chest without contrast. Radiation optimization: All CT scans at this facility use at least one of these dose optimization techniques: automated exposure control; mA and/or kV adjustment per patient size (includes targeted exams where dose is matched to clinical indication); or iterative reconstruction. COMPARISON: CR Chest 1V Frontal 01/05/2021 9:42 PM FINDINGS: Lungs: 5 mm left apical nodule on image number 9 series 2. 12 mm spiculated mass within the left upper lobe. 9 mm pulmonary parenchymal nodule on image number 23 series 2. 12 mm subpleural nodule within the left lower lobe on image number 25 series 2. 5 mm nodule at the left lower lobe on image number 30 series 2. 2.4 x 2.1 cm mass within the right middle lobe on image number 39 series 2. Spiculated 1 cm nodule within the left lower lobe on image number 47 series 2. Pleural spaces: Extensive pleural calcification within the right hemithorax suggesting prior asbestos exposure. Nodular pleural thickening adjacent to the coarse pleural calcification. Heart: Moderately severe coronary artery calcification. Aorta: Unremarkable. No aortic aneurysm. Lymph nodes: There is evidence of shotty axillary and mediastinal lymphadenopathy. No lymph nodes meet the CT criteria for pathologic lymphadenopathy. Gallbladder and bile ducts: Cholelithiasis. Adrenal glands: Diffuse left adrenal thickening may be due to hyperplasia. Bones/joints: Unremarkable. No acute fracture. Soft tissues: Unremarkable. Other findings: Prior chest CT not available for comparison. IMPRESSION: 1. Extensive pleural calcification within the right hemithorax suggesting prior asbestos exposure. 2. 12 mm spiculated mass within the left upper lobe. 3. 2.4 x 2.1 cm mass within the right middle lobe 4. Cholelithiasis. 5. Findings most consistent with pulmonary parenchymal metastatic disease. In the setting of diffuse metastatic disease as demonstrated on this examination, Fleischner recommendations for follow-up incidental pulmonary nodules are not applicable.
[2021-01-06] MEDS: amLODIPine 5 MG Tab PO SCH (12:12)
[2021-01-06] MEDS: Metoprolol Tartrate 50 MG Tab PO SCH ×2 (12:12→20:34)
[2021-01-06] MEDS: Bumetanide 1 MG Tab PO SCH (12:12)
[2021-01-06] MEDS: Vitamin B Complex Cap PO SCH (12:12)
[2021-01-06] MEDS: CALCIUM ACETATE 667 MG PO SCH ×2 (12:12→16:09)
[2021-01-06] MEDS: Calcium Carbonate 500 MG Tab.Chew PO SCH ×2 (12:12→16:09)
[2021-01-06 13:01] LABS: AMPHETAMINES,URINE NEGATIVE (NEGATIVE); BARBITURATES,URINE NEGATIVE (NEGATIVE); BENZODIAZEPINE,URINE NEGATIVE (NEGATIVE); MDMA (ECSTASY), URINE NEGATIVE (NEGATIVE); METHADONE,URINE NEGATIVE (NEGATIVE); METHAMPHETAMINES,URINE NEGATIVE (NEGATIVE); OPIATES,URINE NEGATIVE (NEGATIVE); OXYCODONE,URINE NEGATIVE (NEGATIVE); PHENCYCLIDINE,URINE NEGATIVE (NEGATIVE); TCA,URINE NEGATIVE (NEGATIVE)
[2021-01-06] MEDS: Clopidogrel 75 MG Tab PO SCH (13:42)
--- NOTE | 2021-01-06 14:49 | PCM.DCSUM1 ---
Discharge Summary - Hospital Course Diagnosis: Stroke: No - Discharge Data Discharge Date: 01/06/21 Discharge Disposition: DC/Tfer to [facility] Condition: Stable - Referral to Home Health Primary Care Physician: PCP None - Discharge Diagnosis/Problem(s) (1) Acute coronary syndrome SNOMED Code(s): 317799416 ICD Code: I24.9 - ACUTE ISCHEMIC HEART DISEASE, UNSPECIFIED Status: Acute Current Visit: No (2) History of end stage renal disease SNOMED Code(s): 997849350 ICD Code: Z87.448 - PERSONAL HISTORY OF OTHER DISEASES OF URINARY SYSTEM Status: Acute Current Visit: Yes (3) HTN (hypertension) SNOMED Code(s): 36352786 ICD Code: I10 - ESSENTIAL (PRIMARY) HYPERTENSION Status: Acute Current Visit: Yes (4) Hyperlipidemia SNOMED Code(s): 56360140 ICD Code: E78.5 - HYPERLIPIDEMIA, UNSPECIFIED Status: Acute Current Visit: Yes (5) DVT prophylaxis SNOMED Code(s): 479827604, 399637522 ICD Code: Z29.9 - ENCOUNTER FOR PROPHYLACTIC MEASURES, UNSPECIFIED Status: Acute Current Visit: Yes (6) Lung nodule SNOMED Code(s): 339595219 ICD Code: R91.1 - SOLITARY PULMONARY NODULE Status: Acute Current Visit: Yes (7) Full code status SNOMED Code(s): 324037587 ICD Code: Z78.9 - OTHER SPECIFIED HEALTH STATUS Status: Acute Current Visit: Yes - Discharge Plan *PRESCRIPTION DRUG MONITORING PROGRAM REVIEWED*: No *COPY OF PRESCRIPTION DRUG MONITORING REPORT IN PATIENT ROBINA: No Home Medications: Home Meds atorvaSTATin [Lipitor] 20 mg PO BEDTIME 12/02/15 [History] Metoprolol Tartrate [Lopressor] 50 mg PO BID 01/10/16 [History] amLODIPine [Norvasc] 5 mg PO DAILY 01/10/16 [History] Clopidogrel [Plavix] 75 mg PO DAILY 01/05/17 [History] Bumetanide [Bumex] 2 mg PO DAILY 08/04/20 [History] Midodrine 10 mg PO .MON,WED,FRI 08/04/20 [History] Vitamin B Comp W-C/FA/Zinc [Anamaria B Strong with C & Zinc Tb] 1 each PO DAILY 08/04/20 [History] Calcium Acetate [PhosLo] 667 mg PO TIDMEALS 01/06/21 [History] Calcium Acetate [PhosLo] 667 mg PO TIDMEALS 01/06/21 [Rx] Calcium Carbonate [Tums] 500 mg PO TIDMEALS 01/06/21 [History] Nitroglycerin [Nitrostat] 0.4 mg SL ASDIRECTED PRN tab.sl 01/06/21 [Rx] Zolpidem [Ambien] 5 mg PO BEDTIME PRN tablet 01/06/21 [Rx] lisinopriL [Prinivil] 10 mg PO DAILY tablet 01/06/21 [Rx] Forms: ED Department Discharge Referrals: PCP,None [Primary Care Provider] - - Discharge Summary/Plan Comment DC Time >30 min.: Yes Total # of Minutes for Discharge Time: 35 mins Discharge Summary/Plan Comment: Mr. Harris is a 61-year-old male with a history of a CAD status post multiple stents, hypertension and end-stage renal disease on hemodialysis [facility] He presented to the hospital by ambulance with complains of chest pain that started as he was driving back from [place] to [place]. He had to stop on the way a couple times because the pain was intense at a 9 out of 10 in intensity with radiation to the left arm. Later on he was able to make it to his ex-'s house. She immediately called for the ambulance. On arrival to the ED, he has had positive troponins peaking at about 6125, EKG did not show any acute ST elevations. He was started on heparin drip, Plavix and statin and a beta- june. Cardiology environmental sciences professor at [facility] was notified. No beds were available at the time for transfer to a tertiary hospital therefore the patient was kept at our facility until a bed could be availed. He received nitroglycerin as well as fentanyl which seemed to help with his pain. During his hospital stay patient angina resolved. A chest X ray done showed a left upper lung abnormality on chest x-ray. A non- contrasted CT of the chest showed an extensive pleural calcification within the right hemithorax suggesting prior asbestos exposure, a 12 mm spiculated mass within the left upper lobe and a 2.4 x 2.1 cm mass in the right middle lobe. Cholelithiasis. The lung findings are most consistent with primary pulmonary parenchymal metastatic disease. Arrangements were made to transfer him to [facility] for a cardiology evaluation with Dr. Juarez as well as work up of the newly diagnosed lung mass ? lung cancer. Once the bed was available the patient was transferred to [facility] via [facility] ambulance. Condition on transfer: patient was stable. Discharge instructions Activities: as tolerated Diet: is a cardiac diet. Patient was advised to abstain from tobacco use. He was advised to follow-up with his primary care provider regarding the left upper lung nodule abnormality is concerning for a malignancy. Physical exam: General: obese male. In no acute distress. CVS: S1S2 appreciated. RRR lungs: clear bilateral. no rales or wheezes pa: soft, non tender. bowel sounds present ext: no clubbing, cyanosis or edema neuro: no focal deficits. strength 5/5 bilaterally. sensation is intact. - Patient Data Vitals - Most Recent: Last Vital Signs Temp 97.3 F 01/06/21 13:25 Pulse 70 01/06/21 13:25 Resp 18 01/06/21 13:25 BP 150/64 H 01/06/21 13:41 Pulse Ox 99 01/06/21 13:25 Weight - Most Recent: 223 lb 9.6 oz I&O - Last 24 hours: Intake & Output 01/05/21 01/06/21 01/06/21 22:59 06:59 14:59 Intake Total 1000 Output Total 200 Balance 800 Lab Results - Last 24 hrs: Laboratory Results - last 24 hr 01/05/21 01/05/21 01/05/21 Range/Units 21:50 21:50 21:50 WBC 6.4 (5.0-10.0) 10^3/uL RBC 3.54 L (4.6-6.2) 10^6/uL Hgb 10.0 L (14.0-18.0) g/dL Hct 31.6 L (40.0-54.0) % MCV 89.3 (80-100) fL MCH 28.2 (27.0-34.0) pg MCHC 31.6 L (33.0-35.0) g/dL Plt Count 238 (150-450) 10^3/uL Neut % (Auto) 95.1 H (42.2-75.2) % Lymph % (Auto) 3.7 L (20.5-50.1) % [place] % (Auto) 0.9 L (2-8) % Eos % (Auto) 0.0 L (1.0-3.0) % Baso % (Auto) 0.3 (0.0-1.0) % PT 10.1 (9.0-12.0) SEC INR 1.0 (0.9-1.2) APTT 26.4 (22.0-34.0) SEC Sodium 142 (136-145) mmol/L Potassium 4.3 (3.5-5.1) mmol/L Chloride 102 (98-107) mmol/L Carbon Dioxide 26 (21-32) mmol/L Anion Gap 18.3 H (7-13) mEq/L BUN 39 H (7-18) mg/dL Creatinine 7.73 H* (0.70-1.30) mg/dL Est Cr Clr Drug Dosing 9.31 mL/min Estimated GFR (MDRD) 7 BUN/Creatinine Ratio 5.0 (No establ ref range) Glucose 239 H (70-99) mg/dL POC Glucose (70-99) mg/dL Calcium 8.6 (8.5-10.1) mg/dL Magnesium 1.9 (1.8-2.4) mg/dL Total Bilirubin 0.3 (0.2-1.0) mg/dL AST 11 L (15-37) U/L ALT 16 (16-63) U/L Alkaline Phosphatase 184 H (46-116) U/L Troponin I High Sens 166 H* (<=76) pg/mL C-Reactive Protein 0.3 (0.0-0.9) mg/dL B-Natriuretic Peptide 1970 H (0-100) pg/ml Total Protein 7.5 (6.4-8.2) g/dL Albumin 3.2 L (3.4-5.0) g/dL Globulin 4.3 Albumin/Globulin Ratio 0.74 Amylase 53 (25-115) U/L Lipase 150 (73-393) U/L Urine Color (YELLOW) Urine Appearance (CLEAR) Urine pH (5.0-9.0) Ur Specific [place] (1.005-1.030) Urine Protein (NEGATIVE) Urine Glucose (UA) (NEGATIVE) Urine Ketones (NEGATIVE) Urine Occult Blood (NEGATIVE) Urine Nitrite (NEGATIVE) Urine Bilirubin (NEGATIVE) Urine Urobilinogen (0.2-1.0) mg/dL Ur Leukocyte Esterase (NEGATIVE) Urine RBC (0-5) /HPF Urine WBC (0-5/HPF) /HPF Ur Epithelial Cells (NOT SEEN) /HPF Amorphous Sediment (NOT SEEN) /HPF Urine Bacteria (0-FEW/HPF) /HPF Urine Mucus (NOT SEEN) /LPF Urine Opiates Screen (NEGATIVE) Ur Oxycodone Screen (NEGATIVE) Urine Methadone Screen (NEGATIVE) Ur Barbiturates Screen (NEGATIVE) U Tricyclic Antidepress (NEGATIVE) Ur Phencyclidine Scrn (NEGATIVE) Ur Amphetamine Screen (NEGATIVE) U Methamphetamines Scrn (NEGATIVE) Urine MDMA Screen (NEGATIVE) U Benzodiazepines Scrn (NEGATIVE) Urine Cocaine Screen (NEGATIVE) U Marijuana (THC) Screen (NEGATIVE) Ethyl Alcohol < 3 (0) mg/dL SARS-CoV-2 RNA (CLINT) (NEGATIVE) 01/06/21 01/06/21 01/06/21 Range/Units 01:50 04:08 06:20 WBC (5.0-10.0) 10^3/uL RBC (4.6-6.2) 10^6/uL Hgb (14.0-18.0) g/dL Hct (40.0-54.0) % MCV (80-100) fL MCH (27.0-34.0) pg MCHC (33.0-35.0) g/dL Plt Count (150-450) 10^3/uL Neut % (Auto) (42.2-75.2) % Lymph % (Auto) (20.5-50.1) % [place] % (Auto) (2-8) % Eos % (Auto) (1.0-3.0) % Baso % (Auto) (0.0-1.0) % PT (9.0-12.0) SEC INR (0.9-1.2) APTT (22.0-34.0) SEC Sodium (136-145) mmol/L Potassium (3.5-5.1) mmol/L Chloride (98-107) mmol/L Carbon Dioxide (21-32) mmol/L Anion Gap (7-13) mEq/L BUN (7-18) mg/dL Creatinine (0.70-1.30) mg/dL Est Cr Clr Drug Dosing mL/min Estimated GFR (MDRD) BUN/Creatinine Ratio (No establ ref range) Glucose (70-99) mg/dL POC Glucose (70-99) mg/dL Calcium (8.5-10.1) mg/dL Magnesium (1.8-2.4) mg/dL Total Bilirubin (0.2-1.0) mg/dL AST (15-37) U/L ALT (16-63) U/L Alkaline Phosphatase (46-116) U/L Troponin I High Sens 4690 H* 6125 H* (<=76) pg/mL C-Reactive Protein (0.0-0.9) mg/dL B-Natriuretic Peptide (0-100) pg/ml Total Protein (6.4-8.2) g/dL Albumin (3.4-5.0) g/dL Globulin Albumin/Globulin Ratio Amylase (25-115) U/L Lipase (73-393) U/L Urine Color (YELLOW) Urine Appearance (CLEAR) Urine pH (5.0-9.0) Ur Specific [place] (1.005-1.030) Urine Protein (NEGATIVE) Urine Glucose (UA) (NEGATIVE) Urine Ketones (NEGATIVE) Urine Occult Blood (NEGATIVE) Urine Nitrite (NEGATIVE) Urine Bilirubin (NEGATIVE) Urine Urobilinogen (0.2-1.0) mg/dL Ur Leukocyte Esterase (NEGATIVE) Urine RBC (0-5) /HPF Urine WBC (0-5/HPF) /HPF Ur Epithelial Cells (NOT SEEN) /HPF Amorphous Sediment (NOT SEEN) /HPF Urine Bacteria (0-FEW/HPF) /HPF Urine Mucus (NOT SEEN) /LPF Urine Opiates Screen (NEGATIVE) Ur Oxycodone Screen (NEGATIVE) Urine Methadone Screen (NEGATIVE) Ur Barbiturates Screen (NEGATIVE) U Tricyclic Antidepress (NEGATIVE) Ur Phencyclidine Scrn (NEGATIVE) Ur Amphetamine Screen (NEGATIVE) U Methamphetamines Scrn (NEGATIVE) Urine MDMA Screen (NEGATIVE) U Benzodiazepines Scrn (NEGATIVE) Urine Cocaine Screen (NEGATIVE) U Marijuana (THC) Screen (NEGATIVE) Ethyl Alcohol (0) mg/dL SARS-CoV-2 RNA (CLINT) Negative (NEGATIVE) 01/06/21 01/06/21 01/06/21 Range/Units 07:29 09:08 12:05 WBC (5.0-10.0) 10^3/uL RBC (4.6-6.2) 10^6/uL Hgb (14.0-18.0) g/dL Hct (40.0-54.0) % MCV (80-100) fL MCH (27.0-34.0) pg MCHC (33.0-35.0) g/dL Plt Count (150-450) 10^3/uL Neut % (Auto) (42.2-75.2) % Lymph % (Auto) (20.5-50.1) % [place] % (Auto) (2-8) % Eos % (Auto) (1.0-3.0) % Baso % (Auto) (0.0-1.0) % PT (9.0-12.0) SEC INR (0.9-1.2) APTT 36.2 H (22.0-34.0) SEC Sodium (136-145) mmol/L Potassium (3.5-5.1) mmol/L Chloride (98-107) mmol/L Carbon Dioxide (21-32) mmol/L Anion Gap (7-13) mEq/L BUN (7-18) mg/dL Creatinine (0.70-1.30) mg/dL Est Cr Clr Drug Dosing mL/min Estimated GFR (MDRD) BUN/Creatinine Ratio (No establ ref range) Glucose (70-99) mg/dL POC Glucose 126 H (70-99) mg/dL Calcium (8.5-10.1) mg/dL Magnesium (1.8-2.4) mg/dL Total Bilirubin (0.2-1.0) mg/dL AST (15-37) U/L ALT (16-63) U/L Alkaline Phosphatase (46-116) U/L Troponin I High Sens 5671 H* (<=76) pg/mL C-Reactive Protein (0.0-0.9) mg/dL B-Natriuretic Peptide (0-100) pg/ml Total Protein (6.4-8.2) g/dL Albumin (3.4-5.0) g/dL Globulin Albumin/Globulin Ratio Amylase (25-115) U/L Lipase (73-393) U/L Urine Color (YELLOW) Urine Appearance (CLEAR) Urine pH (5.0-9.0) Ur Specific [place] (1.005-1.030) Urine Protein (NEGATIVE) Urine Glucose (UA) (NEGATIVE) Urine Ketones (NEGATIVE) Urine Occult Blood (NEGATIVE) Urine Nitrite (NEGATIVE) Urine Bilirubin (NEGATIVE) Urine Urobilinogen (0.2-1.0) mg/dL Ur Leukocyte Esterase (NEGATIVE) Urine RBC (0-5) /HPF Urine WBC (0-5/HPF) /HPF Ur Epithelial Cells (NOT SEEN) /HPF Amorphous Sediment (NOT SEEN) /HPF Urine Bacteria (0-FEW/HPF) /HPF Urine Mucus (NOT SEEN) /LPF Urine Opiates Screen (NEGATIVE) Ur Oxycodone Screen (NEGATIVE) Urine Methadone Screen (NEGATIVE) Ur Barbiturates Screen (NEGATIVE) U Tricyclic Antidepress (NEGATIVE) Ur Phencyclidine Scrn (NEGATIVE) Ur Amphetamine Screen (NEGATIVE) U Methamphetamines Scrn (NEGATIVE) Urine MDMA Screen (NEGATIVE) U Benzodiazepines Scrn (NEGATIVE) Urine Cocaine Screen (NEGATIVE) U Marijuana (THC) Screen (NEGATIVE) Ethyl Alcohol (0) mg/dL SARS-CoV-2 RNA (CLINT) (NEGATIVE) 01/06/21 01/06/21 Range/Units 12:45 12:45 WBC (5.0-10.0) 10^3/uL RBC (4.6-6.2) 10^6/uL Hgb (14.0-18.0) g/dL Hct (40.0-54.0) % MCV (80-100) fL MCH (27.0-34.0) pg MCHC (33.0-35.0) g/dL Plt Count (150-450) 10^3/uL Neut % (Auto) (42.2-75.2) % Lymph % (Auto) (20.5-50.1) % [place] % (Auto) (2-8) % Eos % (Auto) (1.0-3.0) % Baso % (Auto) (0.0-1.0) % PT (9.0-12.0) SEC INR (0.9-1.2) APTT (22.0-34.0) SEC Sodium (136-145) mmol/L Potassium (3.5-5.1) mmol/L Chloride (98-107) mmol/L Carbon Dioxide (21-32) mmol/L Anion Gap (7-13) mEq/L BUN (7-18) mg/dL Creatinine (0.70-1.30) mg/dL Est Cr Clr Drug Dosing mL/min Estimated GFR (MDRD) BUN/Creatinine Ratio (No establ ref range) Glucose (70-99) mg/dL POC Glucose (70-99) mg/dL Calcium (8.5-10.1) mg/dL Magnesium (1.8-2.4) mg/dL Total Bilirubin (0.2-1.0) mg/dL AST (15-37) U/L ALT (16-63) U/L Alkaline Phosphatase (46-116) U/L Troponin I High Sens (<=76) pg/mL C-Reactive Protein (0.0-0.9) mg/dL B-Natriuretic Peptide (0-100) pg/ml Total Protein (6.4-8.2) g/dL Albumin (3.4-5.0) g/dL Globulin Albumin/Globulin Ratio Amylase (25-115) U/L Lipase (73-393) U/L Urine Color Yellow (YELLOW) Urine Appearance Clear (CLEAR) Urine pH 8.5 (5.0-9.0) Ur Specific [place] 1.020 (1.005-1.030) Urine Protein 100 H (NEGATIVE) Urine Glucose (UA) 500 H (NEGATIVE) Urine Ketones Negative (NEGATIVE) Urine Occult Blood Trace-intact H (NEGATIVE) Urine Nitrite Negative (NEGATIVE) Urine Bilirubin Negative (NEGATIVE) Urine Urobilinogen 0.2 (0.2-1.0) mg/dL Ur Leukocyte Esterase Negative (NEGATIVE) Urine RBC 5-10 H (0-5) /HPF Urine WBC 0-5 (0-5/HPF) /HPF Ur Epithelial Cells Occasional (NOT SEEN) /HPF Amorphous Sediment Occasional (NOT SEEN) /HPF Urine Bacteria Rare (0-FEW/HPF) /HPF Urine Mucus Rare (NOT SEEN) /LPF Urine Opiates Screen Negative (NEGATIVE) Ur Oxycodone Screen Negative (NEGATIVE) Urine Methadone Screen Negative (NEGATIVE) Ur Barbiturates Screen Negative (NEGATIVE) U Tricyclic Antidepress Negative (NEGATIVE) Ur Phencyclidine Scrn Negative (NEGATIVE) Ur Amphetamine Screen Negative (NEGATIVE) U Methamphetamines Scrn Negative (NEGATIVE) Urine MDMA Screen Negative (NEGATIVE) U Benzodiazepines Scrn Negative (NEGATIVE) Urine Cocaine Screen Negative (NEGATIVE) U Marijuana (THC) Screen Negative (NEGATIVE) Ethyl Alcohol (0) mg/dL SARS-CoV-2 RNA (CLINT) (NEGATIVE) Med Orders - Current: Current Medications Amlodipine Besylate (Amlodipine 5 Mg Tab) 5 mg PO DAILY [facility] Last Admin: 01/06/21 12:12 Dose: 5 mg Documented by: Atorvastatin Calcium (Atorvastatin 20 Mg Tab) 20 mg PO BEDTIME [facility] Bumetanide (Bumetanide 1 Mg Tab) 2 mg PO DAILY [facility] Last Admin: 01/06/21 12:12 Dose: 2 mg Documented by: Calcium Carbonate/Glycine (Calcium Carbonate 500 Mg Tab.Chew) 500 mg PO TIDMEALS [facility] Last Admin: 01/06/21 12:12 Dose: 500 mg Documented by: Clopidogrel Bisulfate (Clopidogrel 75 Mg Tab) 75 mg PO DAILY [facility] Last Admin: 01/06/21 13:42 Dose: 75 mg Documented by: Heparin Sodium/Sodium Chloride (Heparin 25,000 Units In 1/2 Ns 500 Ml) 25,000 units in 500 mls @ 18.33 mls/hr IV TITRATE [facility]; Protocol Last Titration: 01/06/21 09:57 Dose: 11 units/kg/hr, 22.403 mls/hr Documented by: Lisinopril (Lisinopril 10 Mg Tab) 10 mg PO DAILY [facility] Last Admin: 01/06/21 13:41 Dose: 10 mg Documented by: Metoprolol Tartrate (Metoprolol Tartrate 50 Mg Tab) 50 mg PO BID [facility] Last Admin: 01/06/21 12:12 Dose: 50 mg Documented by: Morphine Sulfate (Morphine 2 Mg/Ml Syringe) 2 mg IVPUSH Q2H PRN PRN Reason: Chest Pain Last Admin: 01/06/21 09:13 Dose: 2 mg Documented by: Nitroglycerin (Nitroglycerin 0.4 Mg Tab.Sl) 0.4 mg SL ASDIRECTED PRN PRN Reason: Chest Pain Calcium Acetate [ (Phoslo] 667 Mg Cap) 667 mg PO TIDMEALS [facility] Last Admin: 01/06/21 12:12 Dose: 667 mg Documented by: Ondansetron HCl (Ondansetron 4 Mg Tab.Dis) 4 mg PO Q4H PRN PRN Reason: nausea, able to take PO Vitamin B Complex (Vitamin B Complex Cap) 1 each PO DAILY [facility] Last Admin: 01/06/21 12:12 Dose: 1 each Documented by: Zolpidem Tartrate (Zolpidem 5 Mg Tab) 5 mg PO BEDTIME PRN PRN Reason: Sleep Discontinued Medications Amlodipine Besylate (Amlodipine 5 Mg Tab) 5 mg PO ONETIME ONE Stop: 01/05/21 22:31 Last Admin: 01/05/21 22:37 Dose: 5 mg Documented by: Bumetanide (Bumetanide 1 Mg Tab) 2 mg PO ONETIME ONE Stop: 01/05/21 22:30 Last Admin: 01/05/21 22:37 Dose: 2 mg Documented by: Heparin Sodium (Porcine) (Heparin Sodium 5,000 Units/Ml Vial) Confirm Administered Dose 5,000 units .ROUTE .STK-MED ONE Stop: 01/06/21 02:44 Last Admin: 01/06/21 02:56 Dose: Not Given Documented by: Heparin Sodium (Porcine) (Heparin Sodium 5,000 Units/Ml Vial) 4,000 units IVPUSH .BOLUS ONE Stop: 01/06/21 02:50 Last Admin: 01/06/21 02:46 Dose: 4,000 units Documented by: Heparin Sodium/Sodium Chloride (Heparin 25,000 Units In 1/2 Ns 500 Ml) Confirm Administered Dose 500 mls @ as directed .ROUTE .STK-MED ONE Stop: 01/06/21 02:44 Last Admin: 01/06/21 02:57 Dose: Not Given Documented by: Metoprolol Tartrate (Metoprolol Tartrate 50 Mg Tab) 50 mg PO ONETIME ONE Stop: 01/05/21 22:30 Last Admin: 01/05/21 22:37 Dose: 50 mg Documented by: Morphine Sulfate (Morphine 2 Mg/Ml Syringe) 1 mg IVPUSH ONETIME ONE Stop: 01/05/21 22:31 Last Admin: 01/05/21 22:35 Dose: 1 mg Documented by: Oxycodone HCl (Oxycodone 5 Mg Tab) 10 mg PO QID PRN PRN Reason: Pain
[2021-01-06] MEDS ORDERED: atorvaSTATin 20 MG Tab PO SCH (21:00)
[2021-01-06] MEDS ORDERED: Heparin Sodium 5,000 Units/ML Vial ONE (23:02)
[2021-01-06] MEDS ORDERED: Heparin Sodium 5,000 Units/ML Vial IVPUSH ONE (23:09)
[2021-01-07] MEDS: Heparin Sodium/0.45% NaCl 25,000 UNITS/500 ML BAG IV SCH (02:01)
--- NOTE | 2021-01-07 06:09 | PCM.CONSN ---
- General Info Date of Service: 01/07/21 - Patient Data Vitals - Most Recent: Last Vital Signs Temp 98.2 F 01/07/21 00:00 Pulse 64 01/07/21 00:00 Resp 16 01/07/21 00:00 BP 126/62 01/07/21 00:00 Pulse Ox 96 01/07/21 00:00 Weight - Most Recent: 223 lb 9.6 oz I&O - Last 24 Hours: Intake & Output 01/06/21 01/06/21 01/07/21 14:59 22:59 06:59 Intake Total 1000 500 Output Total 200 200 Balance 800 300 Lab Results Last 24 Hours: Laboratory Results - last 24 hr 01/06/21 01/06/21 01/06/21 Range/Units 06:20 07:29 09:08 APTT 36.2 H (22.0-34.0) SEC POC Glucose 126 H (70-99) mg/dL Troponin I High Sens 6125 H* (<=76) pg/mL Urine Color (YELLOW) Urine Appearance (CLEAR) Urine pH (5.0-9.0) Ur Specific [place] (1.005-1.030) Urine Protein (NEGATIVE) Urine Glucose (UA) (NEGATIVE) Urine Ketones (NEGATIVE) Urine Occult Blood (NEGATIVE) Urine Nitrite (NEGATIVE) Urine Bilirubin (NEGATIVE) Urine Urobilinogen (0.2-1.0) mg/dL Ur Leukocyte Esterase (NEGATIVE) Urine RBC (0-5) /HPF Urine WBC (0-5/HPF) /HPF Ur Epithelial Cells (NOT SEEN) /HPF Amorphous Sediment (NOT SEEN) /HPF Urine Bacteria (0-FEW/HPF) /HPF Urine Mucus (NOT SEEN) /LPF Urine Opiates Screen (NEGATIVE) Ur Oxycodone Screen (NEGATIVE) Urine Methadone Screen (NEGATIVE) Ur Barbiturates Screen (NEGATIVE) U Tricyclic Antidepress (NEGATIVE) Ur Phencyclidine Scrn (NEGATIVE) Ur Amphetamine Screen (NEGATIVE) U Methamphetamines Scrn (NEGATIVE) Urine MDMA Screen (NEGATIVE) U Benzodiazepines Scrn (NEGATIVE) Urine Cocaine Screen (NEGATIVE) U Marijuana (THC) Screen (NEGATIVE) 01/06/21 01/06/21 01/06/21 Range/Units 12:05 12:45 12:45 APTT (22.0-34.0) SEC POC Glucose (70-99) mg/dL Troponin I High Sens 5671 H* (<=76) pg/mL Urine Color Yellow (YELLOW) Urine Appearance Clear (CLEAR) Urine pH 8.5 (5.0-9.0) Ur Specific [place] 1.020 (1.005-1.030) Urine Protein 100 H (NEGATIVE) Urine Glucose (UA) 500 H (NEGATIVE) Urine Ketones Negative (NEGATIVE) Urine Occult Blood Trace-intact H (NEGATIVE) Urine Nitrite Negative (NEGATIVE) Urine Bilirubin Negative (NEGATIVE) Urine Urobilinogen 0.2 (0.2-1.0) mg/dL Ur Leukocyte Esterase Negative (NEGATIVE) Urine RBC 5-10 H (0-5) /HPF Urine WBC 0-5 (0-5/HPF) /HPF Ur Epithelial Cells Occasional (NOT SEEN) /HPF Amorphous Sediment Occasional (NOT SEEN) /HPF Urine Bacteria Rare (0-FEW/HPF) /HPF Urine Mucus Rare (NOT SEEN) /LPF Urine Opiates Screen Negative (NEGATIVE) Ur Oxycodone Screen Negative (NEGATIVE) Urine Methadone Screen Negative (NEGATIVE) Ur Barbiturates Screen Negative (NEGATIVE) U Tricyclic Antidepress Negative (NEGATIVE) Ur Phencyclidine Scrn Negative (NEGATIVE) Ur Amphetamine Screen Negative (NEGATIVE) U Methamphetamines Scrn Negative (NEGATIVE) Urine MDMA Screen Negative (NEGATIVE) U Benzodiazepines Scrn Negative (NEGATIVE) Urine Cocaine Screen Negative (NEGATIVE) U Marijuana (THC) Screen Negative (NEGATIVE) 01/06/21 01/06/21 01/06/21 Range/Units 15:31 15:31 19:00 APTT 37.2 H (22.0-34.0) SEC POC Glucose (70-99) mg/dL Troponin I High Sens 5312 H* 4248 H* (<=76) pg/mL Urine Color (YELLOW) Urine Appearance (CLEAR) Urine pH (5.0-9.0) Ur Specific [place] (1.005-1.030) Urine Protein (NEGATIVE) Urine Glucose (UA) (NEGATIVE) Urine Ketones (NEGATIVE) Urine Occult Blood (NEGATIVE) Urine Nitrite (NEGATIVE) Urine Bilirubin (NEGATIVE) Urine Urobilinogen (0.2-1.0) mg/dL Ur Leukocyte Esterase (NEGATIVE) Urine RBC (0-5) /HPF Urine WBC (0-5/HPF) /HPF Ur Epithelial Cells (NOT SEEN) /HPF Amorphous Sediment (NOT SEEN) /HPF Urine Bacteria (0-FEW/HPF) /HPF Urine Mucus (NOT SEEN) /LPF Urine Opiates Screen (NEGATIVE) Ur Oxycodone Screen (NEGATIVE) Urine Methadone Screen (NEGATIVE) Ur Barbiturates Screen (NEGATIVE) U Tricyclic Antidepress (NEGATIVE) Ur Phencyclidine Scrn (NEGATIVE) Ur Amphetamine Screen (NEGATIVE) U Methamphetamines Scrn (NEGATIVE) Urine MDMA Screen (NEGATIVE) U Benzodiazepines Scrn (NEGATIVE) Urine Cocaine Screen (NEGATIVE) U Marijuana (THC) Screen (NEGATIVE) 01/06/21 Range/Units 22:05 APTT 39.4 H (22.0-34.0) SEC POC Glucose (70-99) mg/dL Troponin I High Sens (<=76) pg/mL Urine Color (YELLOW) Urine Appearance (CLEAR) Urine pH (5.0-9.0) Ur Specific [place] (1.005-1.030) Urine Protein (NEGATIVE) Urine Glucose (UA) (NEGATIVE) Urine Ketones (NEGATIVE) Urine Occult Blood (NEGATIVE) Urine Nitrite (NEGATIVE) Urine Bilirubin (NEGATIVE) Urine Urobilinogen (0.2-1.0) mg/dL Ur Leukocyte Esterase (NEGATIVE) Urine RBC (0-5) /HPF Urine WBC (0-5/HPF) /HPF Ur Epithelial Cells (NOT SEEN) /HPF Amorphous Sediment (NOT SEEN) /HPF Urine Bacteria (0-FEW/HPF) /HPF Urine Mucus (NOT SEEN) /LPF Urine Opiates Screen (NEGATIVE) Ur Oxycodone Screen (NEGATIVE) Urine Methadone Screen (NEGATIVE) Ur Barbiturates Screen (NEGATIVE) U Tricyclic Antidepress (NEGATIVE) Ur Phencyclidine Scrn (NEGATIVE) Ur Amphetamine Screen (NEGATIVE) U Methamphetamines Scrn (NEGATIVE) Urine MDMA Screen (NEGATIVE) U Benzodiazepines Scrn (NEGATIVE) Urine Cocaine Screen (NEGATIVE) U Marijuana (THC) Screen (NEGATIVE) Med Orders - Current: Current Medications Amlodipine Besylate (Amlodipine 5 Mg Tab) 5 mg PO DAILY [facility] Last Admin: 01/06/21 12:12 Dose: 5 mg Documented by: Atorvastatin Calcium (Atorvastatin 20 Mg Tab) 20 mg PO BEDTIME [facility] Last Admin: 01/06/21 20:35 Dose: 20 mg Documented by: Bumetanide (Bumetanide 1 Mg Tab) 2 mg PO DAILY [facility] Last Admin: 01/06/21 12:12 Dose: 2 mg Documented by: Calcium Carbonate/Glycine (Calcium Carbonate 500 Mg Tab.Chew) 500 mg PO TIDMEALS [facility] Last Admin: 01/06/21 16:09 Dose: 500 mg Documented by: Clopidogrel Bisulfate (Clopidogrel 75 Mg Tab) 75 mg PO DAILY [facility] Last Admin: 01/06/21 13:42 Dose: 75 mg Documented by: Heparin Sodium/Sodium Chloride (Heparin 25,000 Units In 1/2 Ns 500 Ml) 25,000 units in 500 mls @ 18.33 mls/hr IV TITRATE [facility]; Protocol Last Admin: 01/07/21 02:01 Dose: 15 units/kg/hr, 30.549 mls/hr Documented by: Lisinopril (Lisinopril 10 Mg Tab) 10 mg PO DAILY [facility] Last Admin: 01/06/21 13:41 Dose: 10 mg Documented by: Metoprolol Tartrate (Metoprolol Tartrate 50 Mg Tab) 50 mg PO BID [facility] Last Admin: 01/06/21 20:34 Dose: 50 mg Documented by: Morphine Sulfate (Morphine 2 Mg/Ml Syringe) 2 mg IVPUSH Q2H PRN PRN Reason: Chest Pain Last Admin: 01/06/21 09:13 Dose: 2 mg Documented by: Nitroglycerin (Nitroglycerin 0.4 Mg Tab.Sl) 0.4 mg SL ASDIRECTED PRN PRN Reason: Chest Pain Calcium Acetate [ (Phoslo] 667 Mg Cap) 667 mg PO TIDMEALS [facility] Last Admin: 01/06/21 16:09 Dose: 667 mg Documented by: Ondansetron HCl (Ondansetron 4 Mg Tab.Dis) 4 mg PO Q4H PRN PRN Reason: nausea, able to take PO Vitamin B Complex (Vitamin B Complex Cap) 1 each PO DAILY [facility] Last Admin: 01/06/21 12:12 Dose: 1 each Documented by: Zolpidem Tartrate (Zolpidem 5 Mg Tab) 5 mg PO BEDTIME PRN PRN Reason: Sleep Discontinued Medications Amlodipine Besylate (Amlodipine 5 Mg Tab) 5 mg PO ONETIME ONE Stop: 01/05/21 22:31 Last Admin: 01/05/21 22:37 Dose: 5 mg Documented by: Bumetanide (Bumetanide 1 Mg Tab) 2 mg PO ONETIME ONE Stop: 01/05/21 22:30 Last Admin: 01/05/21 22:37 Dose: 2 mg Documented by: Heparin Sodium (Porcine) (Heparin Sodium 5,000 Units/Ml Vial) Confirm Administered Dose 5,000 units .ROUTE .STK-MED ONE Stop: 01/06/21 02:44 Last Admin: 01/06/21 02:56 Dose: Not Given Documented by: Heparin Sodium (Porcine) (Heparin Sodium 5,000 Units/Ml Vial) 4,000 units IVPUSH .BOLUS ONE Stop: 01/06/21 02:50 Last Admin: 01/06/21 02:46 Dose: 4,000 units Documented by: Heparin Sodium (Porcine) (Heparin Sodium 5,000 Units/Ml Vial) Confirm Administered Dose 5,000 units .ROUTE .STK-MED ONE Stop: 01/06/21 23:03 Last Admin: 01/06/21 23:16 Dose: Not Given Documented by: Heparin Sodium (Porcine) (Heparin Sodium 5,000 Units/Ml Vial) 1,000 units IVPUSH .BOLUS ONE Stop: 01/06/21 23:10 Last Admin: 01/06/21 23:31 Dose: 1,000 units Documented by: Heparin Sodium/Sodium Chloride (Heparin 25,000 Units In 1/2 Ns 500 Ml) Confirm Administered Dose 500 mls @ as directed .ROUTE .STK-MED ONE Stop: 01/06/21 02:44 Last Admin: 01/06/21 02:57 Dose: Not Given Documented by: Metoprolol Tartrate (Metoprolol Tartrate 50 Mg Tab) 50 mg PO ONETIME ONE Stop: 01/05/21 22:30 Last Admin: 01/05/21 22:37 Dose: 50 mg Documented by: Morphine Sulfate (Morphine 2 Mg/Ml Syringe) 1 mg IVPUSH ONETIME ONE Stop: 01/05/21 22:31 Last Admin: 01/05/21 22:35 Dose: 1 mg Documented by: Oxycodone HCl (Oxycodone 5 Mg Tab) 10 mg PO QID PRN PRN Reason: Pain - Exam General: Alert, Oriented HEENT: Pupils Equal, Pupils Reactive, EOMI, Mucous Membr. Moist/[place] Neck: Supple Lungs: Clear to Auscultation, Normal Respiratory Effort Cardiovascular: Regular Rate, Regular Rhythm Back Exam: Normal Inspection, Full Range of Motion Extremities: Normal Inspection, Normal Range of Motion, Non-Tender, No Pedal Edema, Normal Capillary Refill Skin: Warm, Dry, Intact Wound/Incisions: Healing Well Neurological: No New Focal Deficit Psy/Mental Status: Alert, Normal Affect, Normal Mood Sepsis Event Note - Evaluation Sepsis Screening Result: No Definite Risk - Focused Exam Vital Signs: Vital Signs Temp Pulse Pulse Resp BP BP Pulse Ox 01/07/21 00:00 98.2 F 64 16 126/62 96 01/06/21 20:34 70 125/70 01/06/21 20:00 98.0 F 61 18 137/50 L 95 Consult PN Assessment/Plan Procedures: Procedures AIRWAY INHALATION TREATMENT (03/13/16) ANESTH LENS SURGERY (01/10/16) ASSAY OF AMYLASE (08/04/20) ASSAY OF CK (CPK) (01/28/17) ASSAY OF LACTIC ACID (03/16/18) ASSAY OF LIPASE (08/04/20) ASSAY OF MAGNESIUM (08/04/20) ASSAY OF NATRIURETIC PEPTIDE (08/04/20) ASSAY OF PHOSPHORUS (08/04/20) ASSAY OF SERUM POTASSIUM (06/13/20) ASSAY OF TROPONIN QUANT (08/04/20) BLOOD CULTURE FOR BACTERIA (10/13/15) CHEST X-RAY 1 VIEW FRONTAL (01/05/17) CHEST X-RAY 2VW FRONTAL&LATL (01/28/17) COMPLETE CBC W/AUTO DIFF WBC (08/04/20) COMPREHEN METABOLIC PANEL (08/04/20) CREATINE MB FRACTION (01/28/17) CT ABD & PELV W/CONTRAST (05/22/17) CT ABD & PELVIS W/O CONTRAST (08/27/19) CT CHEST SPINE W/O DYE (05/01/16) CT HEAD/BRAIN W/O DYE (05/22/17) CT LUMBAR SPINE W/O DYE (08/11/13) CT NECK SPINE W/O DYE (05/22/17) CT THORAX DX C+ (05/22/17) CT THORAX DX C- (03/19/14) CULTURE SCREEN ONLY (03/16/18) ECHO EXAM OF ABDOMEN (01/05/17) ELECTROCARDIOGRAM REPORT (09/04/17) ELECTROCARDIOGRAM TRACING (08/04/20) EMERGENCY DEPT VISIT (08/04/20) EMERGENCY DEPT VISIT (08/27/19) EMERGENCY DEPT VISIT (08/27/19) EMERGENCY DEPT VISIT (03/16/18) EMERGENCY DEPT VISIT (03/16/18) EMERGENCY DEPT VISIT (09/04/17) EMERGENCY DEPT VISIT (05/22/17) EMERGENCY DEPT VISIT (05/22/17) EMERGENCY DEPT VISIT (01/28/17) EMERGENCY DEPT VISIT (01/05/17) EMERGENCY DEPT VISIT (05/01/16) EMERGENCY DEPT VISIT (03/13/16) EMERGENCY DEPT VISIT (12/24/15) EMERGENCY DEPT VISIT (12/24/15) EMERGENCY DEPT VISIT (10/13/15) EMERGENCY DEPT VISIT (10/13/15) EMERGENCY DEPT VISIT (03/08/15) EMERGENCY DEPT VISIT (10/13/14) EMERGENCY DEPT VISIT (08/02/14) EMERGENCY DEPT VISIT (02/16/14) EMERGENCY DEPT VISIT (02/16/14) EMERGENCY DEPT VISIT (01/22/14) EMERGENCY DEPT VISIT (08/11/13) EMERGENCY DEPT VISIT (08/11/13) FIBRIN DEGRADATION QUANT (03/29/19) HYDRATE IV INFUSION ADD-ON (01/05/17) INFLUENZA ASSAY W/OPTIC (03/16/18) MRI LUMBAR SPINE W/O DYE (12/12/20) PROTHROMBIN TIME (08/04/20) ROUTINE VENIPUNCTURE (08/04/20) RPR S/N/AX/GEN/TRNK2.6-7.5CM (08/11/13) STREP A AG IA (03/16/18) THER/PROPH/DIAG INJ IV PUSH (01/05/17) THER/PROPH/DIAG INJ SC/IM (08/11/13) THER/PROPH/DIAG IV INF INIT (08/04/20) THROMBOPLASTIN TIME PARTIAL (08/04/20) TX/PRO/DX INJ NEW DRUG ADDON (06/18/16) URINALYSIS AUTO W/SCOPE (01/05/17) X-RAY EXAM CHEST 1 VIEW (08/04/20) X-RAY EXAM CHEST 2 VIEWS (03/16/18) X-RAY EXAM L-S SPINE 2/3 VWS (08/11/13) XCAPSL CTRC RMVL W/O ECP (01/10/16) Plan: NSTEMI/ ACS Patient's troponin peaked at 6125. Continue on medical therapy for acute coronary syndrome including heparin drip, nitro as needed, patient is already on aspirin, Plavix, metoprolol, NIKKI inhibitor, high intensity statin. Is awaiting transfer to [facility] for cardiology evaluation Pt is currently angina free. ESRD on HD Patient is due for dialysis today, volume status Left upper lobe lung nodule CT chest indicated spiculated mass in the left upper lobe and additional mass in the right lobe. Given patient's smoking history concern for primary pulmonary malignancy. Patient will likely require biopsy and consultation with oncology. HTH Continue home medications Hyperlipidemia -continue statin
[2021-01-07 06:32] LABS: ANION GAP 17.6 mEq/L (7-13)
--- NOTE | 2021-01-07 06:39 | PCM.PN ---
- General Info Date of Service: 01/07/21 Functional Status: Reports: Pain Controlled - Review of Systems Systems Review Comment:: Patient states he overall feels well. States that his chest pain is dramatically improved. States it is currently a 0 out of 10. States he does have a mild cough but overall feels well. Denies any significant shortness of breath. Patient states he does have some lower external swelling but this is stable. - Patient Data Vitals - Most Recent: Last Vital Signs Temp 98.6 F 01/07/21 04:00 Pulse 64 01/07/21 04:00 Resp 16 01/07/21 04:00 BP 130/70 01/07/21 04:00 Pulse Ox 95 01/07/21 04:00 Weight - Most Recent: 223 lb 9.6 oz I&O - Last 24 Hours: Intake & Output 01/06/21 01/06/21 01/07/21 14:59 22:59 06:59 Intake Total 1000 500 Output Total 200 200 Balance 800 300 Lab Results Last 24 Hours: Laboratory Results - last 24 hr 01/06/21 01/06/21 01/06/21 Range/Units 06:20 07:29 09:08 APTT 36.2 H (22.0-34.0) SEC POC Glucose 126 H (70-99) mg/dL Troponin I High Sens 6125 H* (<=76) pg/mL Urine Color (YELLOW) Urine Appearance (CLEAR) Urine pH (5.0-9.0) Ur Specific [place] (1.005-1.030) Urine Protein (NEGATIVE) Urine Glucose (UA) (NEGATIVE) Urine Ketones (NEGATIVE) Urine Occult Blood (NEGATIVE) Urine Nitrite (NEGATIVE) Urine Bilirubin (NEGATIVE) Urine Urobilinogen (0.2-1.0) mg/dL Ur Leukocyte Esterase (NEGATIVE) Urine RBC (0-5) /HPF Urine WBC (0-5/HPF) /HPF Ur Epithelial Cells (NOT SEEN) /HPF Amorphous Sediment (NOT SEEN) /HPF Urine Bacteria (0-FEW/HPF) /HPF Urine Mucus (NOT SEEN) /LPF Urine Opiates Screen (NEGATIVE) Ur Oxycodone Screen (NEGATIVE) Urine Methadone Screen (NEGATIVE) Ur Barbiturates Screen (NEGATIVE) U Tricyclic Antidepress (NEGATIVE) Ur Phencyclidine Scrn (NEGATIVE) Ur Amphetamine Screen (NEGATIVE) U Methamphetamines Scrn (NEGATIVE) Urine MDMA Screen (NEGATIVE) U Benzodiazepines Scrn (NEGATIVE) Urine Cocaine Screen (NEGATIVE) U Marijuana (THC) Screen (NEGATIVE) 01/06/21 01/06/21 01/06/21 Range/Units 12:05 12:45 12:45 APTT (22.0-34.0) SEC POC Glucose (70-99) mg/dL Troponin I High Sens 5671 H* (<=76) pg/mL Urine Color Yellow (YELLOW) Urine Appearance Clear (CLEAR) Urine pH 8.5 (5.0-9.0) Ur Specific [place] 1.020 (1.005-1.030) Urine Protein 100 H (NEGATIVE) Urine Glucose (UA) 500 H (NEGATIVE) Urine Ketones Negative (NEGATIVE) Urine Occult Blood Trace-intact H (NEGATIVE) Urine Nitrite Negative (NEGATIVE) Urine Bilirubin Negative (NEGATIVE) Urine Urobilinogen 0.2 (0.2-1.0) mg/dL Ur Leukocyte Esterase Negative (NEGATIVE) Urine RBC 5-10 H (0-5) /HPF Urine WBC 0-5 (0-5/HPF) /HPF Ur Epithelial Cells Occasional (NOT SEEN) /HPF Amorphous Sediment Occasional (NOT SEEN) /HPF Urine Bacteria Rare (0-FEW/HPF) /HPF Urine Mucus Rare (NOT SEEN) /LPF Urine Opiates Screen Negative (NEGATIVE) Ur Oxycodone Screen Negative (NEGATIVE) Urine Methadone Screen Negative (NEGATIVE) Ur Barbiturates Screen Negative (NEGATIVE) U Tricyclic Antidepress Negative (NEGATIVE) Ur Phencyclidine Scrn Negative (NEGATIVE) Ur Amphetamine Screen Negative (NEGATIVE) U Methamphetamines Scrn Negative (NEGATIVE) Urine MDMA Screen Negative (NEGATIVE) U Benzodiazepines Scrn Negative (NEGATIVE) Urine Cocaine Screen Negative (NEGATIVE) U Marijuana (THC) Screen Negative (NEGATIVE) 01/06/21 01/06/21 01/06/21 Range/Units 15:31 15:31 19:00 APTT 37.2 H (22.0-34.0) SEC POC Glucose (70-99) mg/dL Troponin I High Sens 5312 H* 4248 H* (<=76) pg/mL Urine Color (YELLOW) Urine Appearance (CLEAR) Urine pH (5.0-9.0) Ur Specific [place] (1.005-1.030) Urine Protein (NEGATIVE) Urine Glucose (UA) (NEGATIVE) Urine Ketones (NEGATIVE) Urine Occult Blood (NEGATIVE) Urine Nitrite (NEGATIVE) Urine Bilirubin (NEGATIVE) Urine Urobilinogen (0.2-1.0) mg/dL Ur Leukocyte Esterase (NEGATIVE) Urine RBC (0-5) /HPF Urine WBC (0-5/HPF) /HPF Ur Epithelial Cells (NOT SEEN) /HPF Amorphous Sediment (NOT SEEN) /HPF Urine Bacteria (0-FEW/HPF) /HPF Urine Mucus (NOT SEEN) /LPF Urine Opiates Screen (NEGATIVE) Ur Oxycodone Screen (NEGATIVE) Urine Methadone Screen (NEGATIVE) Ur Barbiturates Screen (NEGATIVE) U Tricyclic Antidepress (NEGATIVE) Ur Phencyclidine Scrn (NEGATIVE) Ur Amphetamine Screen (NEGATIVE) U Methamphetamines Scrn (NEGATIVE) Urine MDMA Screen (NEGATIVE) U Benzodiazepines Scrn (NEGATIVE) Urine Cocaine Screen (NEGATIVE) U Marijuana (THC) Screen (NEGATIVE) 01/06/21 Range/Units 22:05 APTT 39.4 H (22.0-34.0) SEC POC Glucose (70-99) mg/dL Troponin I High Sens (<=76) pg/mL Urine Color (YELLOW) Urine Appearance (CLEAR) Urine pH (5.0-9.0) Ur Specific [place] (1.005-1.030) Urine Protein (NEGATIVE) Urine Glucose (UA) (NEGATIVE) Urine Ketones (NEGATIVE) Urine Occult Blood (NEGATIVE) Urine Nitrite (NEGATIVE) Urine Bilirubin (NEGATIVE) Urine Urobilinogen (0.2-1.0) mg/dL Ur Leukocyte Esterase (NEGATIVE) Urine RBC (0-5) /HPF Urine WBC (0-5/HPF) /HPF Ur Epithelial Cells (NOT SEEN) /HPF Amorphous Sediment (NOT SEEN) /HPF Urine Bacteria (0-FEW/HPF) /HPF Urine Mucus (NOT SEEN) /LPF Urine Opiates Screen (NEGATIVE) Ur Oxycodone Screen (NEGATIVE) Urine Methadone Screen (NEGATIVE) Ur Barbiturates Screen (NEGATIVE) U Tricyclic Antidepress (NEGATIVE) Ur Phencyclidine Scrn (NEGATIVE) Ur Amphetamine Screen (NEGATIVE) U Methamphetamines Scrn (NEGATIVE) Urine MDMA Screen (NEGATIVE) U Benzodiazepines Scrn (NEGATIVE) Urine Cocaine Screen (NEGATIVE) U Marijuana (THC) Screen (NEGATIVE) Med Orders - Current: Current Medications Amlodipine Besylate (Amlodipine 5 Mg Tab) 5 mg PO DAILY [facility] Last Admin: 01/06/21 12:12 Dose: 5 mg Documented by: Atorvastatin Calcium (Atorvastatin 20 Mg Tab) 20 mg PO BEDTIME [facility] Last Admin: 01/06/21 20:35 Dose: 20 mg Documented by: Bumetanide (Bumetanide 1 Mg Tab) 2 mg PO DAILY [facility] Last Admin: 01/06/21 12:12 Dose: 2 mg Documented by: Calcium Carbonate/Glycine (Calcium Carbonate 500 Mg Tab.Chew) 500 mg PO TIDMEALS [facility] Last Admin: 01/06/21 16:09 Dose: 500 mg Documented by: Clopidogrel Bisulfate (Clopidogrel 75 Mg Tab) 75 mg PO DAILY [facility] Last Admin: 01/06/21 13:42 Dose: 75 mg Documented by: Heparin Sodium/Sodium Chloride (Heparin 25,000 Units In 1/2 Ns 500 Ml) 25,000 units in 500 mls @ 18.33 mls/hr IV TITRATE [facility]; Protocol Last Admin: 01/07/21 02:01 Dose: 15 units/kg/hr, 30.549 mls/hr Documented by: Lisinopril (Lisinopril 10 Mg Tab) 10 mg PO DAILY [facility] Last Admin: 01/06/21 13:41 Dose: 10 mg Documented by: Metoprolol Tartrate (Metoprolol Tartrate 50 Mg Tab) 50 mg PO BID [facility] Last Admin: 01/06/21 20:34 Dose: 50 mg Documented by: Morphine Sulfate (Morphine 2 Mg/Ml Syringe) 2 mg IVPUSH Q2H PRN PRN Reason: Chest Pain Last Admin: 01/06/21 09:13 Dose: 2 mg Documented by: Nitroglycerin (Nitroglycerin 0.4 Mg Tab.Sl) 0.4 mg SL ASDIRECTED PRN PRN Reason: Chest Pain Calcium Acetate [ (Phoslo] 667 Mg Cap) 667 mg PO TIDMEALS [facility] Last Admin: 01/06/21 16:09 Dose: 667 mg Documented by: Ondansetron HCl (Ondansetron 4 Mg Tab.Dis) 4 mg PO Q4H PRN PRN Reason: nausea, able to take PO Vitamin B Complex (Vitamin B Complex Cap) 1 each PO DAILY [facility] Last Admin: 01/06/21 12:12 Dose: 1 each Documented by: Zolpidem Tartrate (Zolpidem 5 Mg Tab) 5 mg PO BEDTIME PRN PRN Reason: Sleep Discontinued Medications Amlodipine Besylate (Amlodipine 5 Mg Tab) 5 mg PO ONETIME ONE Stop: 01/05/21 22:31 Last Admin: 01/05/21 22:37 Dose: 5 mg Documented by: Bumetanide (Bumetanide 1 Mg Tab) 2 mg PO ONETIME ONE Stop: 01/05/21 22:30 Last Admin: 01/05/21 22:37 Dose: 2 mg Documented by: Heparin Sodium (Porcine) (Heparin Sodium 5,000 Units/Ml Vial) Confirm Administered Dose 5,000 units .ROUTE .STK-MED ONE Stop: 01/06/21 02:44 Last Admin: 01/06/21 02:56 Dose: Not Given Documented by: Heparin Sodium (Porcine) (Heparin Sodium 5,000 Units/Ml Vial) 4,000 units IVPUSH .BOLUS ONE Stop: 01/06/21 02:50 Last Admin: 01/06/21 02:46 Dose: 4,000 units Documented by: Heparin Sodium (Porcine) (Heparin Sodium 5,000 Units/Ml Vial) Confirm Administered Dose 5,000 units .ROUTE .STK-MED ONE Stop: 01/06/21 23:03 Last Admin: 01/06/21 23:16 Dose: Not Given Documented by: Heparin Sodium (Porcine) (Heparin Sodium 5,000 Units/Ml Vial) 1,000 units IVPUSH .BOLUS ONE Stop: 01/06/21 23:10 Last Admin: 01/06/21 23:31 Dose: 1,000 units Documented by: Heparin Sodium/Sodium Chloride (Heparin 25,000 Units In 1/2 Ns 500 Ml) Confirm Administered Dose 500 mls @ as directed .ROUTE .STK-MED ONE Stop: 01/06/21 02:44 Last Admin: 01/06/21 02:57 Dose: Not Given Documented by: Metoprolol Tartrate (Metoprolol Tartrate 50 Mg Tab) 50 mg PO ONETIME ONE Stop: 01/05/21 22:30 Last Admin: 01/05/21 22:37 Dose: 50 mg Documented by: Morphine Sulfate (Morphine 2 Mg/Ml Syringe) 1 mg IVPUSH ONETIME ONE Stop: 01/05/21 22:31 Last Admin: 01/05/21 22:35 Dose: 1 mg Documented by: Oxycodone HCl (Oxycodone 5 Mg Tab) 10 mg PO QID PRN PRN Reason: Pain - Exam General: Alert, Oriented, Cooperative HEENT: Pupils Equal Neck: Supple, No JVD Lungs: Clear to Auscultation Cardiovascular: Regular Rate, Regular Rhythm, No Murmurs GI/Abdominal Exam: Normal Bowel Sounds, Soft Back Exam: Normal Inspection Extremities: Normal Inspection Skin: Warm Neurological: No New Focal Deficit Psy/Mental Status: Alert, Normal Affect Physical Findings Comments:: Mild +2 bilateral lower extremity pitting edema. Palpable fistula thrill in left arm. - Patient Data Lab Results Last 24 hrs: Laboratory Results - last 24 hr 01/06/21 01/06/21 01/06/21 Range/Units 06:20 07:29 09:08 APTT 36.2 H (22.0-34.0) SEC POC Glucose 126 H (70-99) mg/dL Troponin I High Sens 6125 H* (<=76) pg/mL Urine Color (YELLOW) Urine Appearance (CLEAR) Urine pH (5.0-9.0) Ur Specific [place] (1.005-1.030) Urine Protein (NEGATIVE) Urine Glucose (UA) (NEGATIVE) Urine Ketones (NEGATIVE) Urine Occult Blood (NEGATIVE) Urine Nitrite (NEGATIVE) Urine Bilirubin (NEGATIVE) Urine Urobilinogen (0.2-1.0) mg/dL Ur Leukocyte Esterase (NEGATIVE) Urine RBC (0-5) /HPF Urine WBC (0-5/HPF) /HPF Ur Epithelial Cells (NOT SEEN) /HPF Amorphous Sediment (NOT SEEN) /HPF Urine Bacteria (0-FEW/HPF) /HPF Urine Mucus (NOT SEEN) /LPF Urine Opiates Screen (NEGATIVE) Ur Oxycodone Screen (NEGATIVE) Urine Methadone Screen (NEGATIVE) Ur Barbiturates Screen (NEGATIVE) U Tricyclic Antidepress (NEGATIVE) Ur Phencyclidine Scrn (NEGATIVE) Ur Amphetamine Screen (NEGATIVE) U Methamphetamines Scrn (NEGATIVE) Urine MDMA Screen (NEGATIVE) U Benzodiazepines Scrn (NEGATIVE) Urine Cocaine Screen (NEGATIVE) U Marijuana (THC) Screen (NEGATIVE) 01/06/21 01/06/21 01/06/21 Range/Units 12:05 12:45 12:45 APTT (22.0-34.0) SEC POC Glucose (70-99) mg/dL Troponin I High Sens 5671 H* (<=76) pg/mL Urine Color Yellow (YELLOW) Urine Appearance Clear (CLEAR) Urine pH 8.5 (5.0-9.0) Ur Specific [place] 1.020 (1.005-1.030) Urine Protein 100 H (NEGATIVE) Urine Glucose (UA) 500 H (NEGATIVE) Urine Ketones Negative (NEGATIVE) Urine Occult Blood Trace-intact H (NEGATIVE) Urine Nitrite Negative (NEGATIVE) Urine Bilirubin Negative (NEGATIVE) Urine Urobilinogen 0.2 (0.2-1.0) mg/dL Ur Leukocyte Esterase Negative (NEGATIVE) Urine RBC 5-10 H (0-5) /HPF Urine WBC 0-5 (0-5/HPF) /HPF Ur Epithelial Cells Occasional (NOT SEEN) /HPF Amorphous Sediment Occasional (NOT SEEN) /HPF Urine Bacteria Rare (0-FEW/HPF) /HPF Urine Mucus Rare (NOT SEEN) /LPF Urine Opiates Screen Negative (NEGATIVE) Ur Oxycodone Screen Negative (NEGATIVE) Urine Methadone Screen Negative (NEGATIVE) Ur Barbiturates Screen Negative (NEGATIVE) U Tricyclic Antidepress Negative (NEGATIVE) Ur Phencyclidine Scrn Negative (NEGATIVE) Ur Amphetamine Screen Negative (NEGATIVE) U Methamphetamines Scrn Negative (NEGATIVE) Urine MDMA Screen Negative (NEGATIVE) U Benzodiazepines Scrn Negative (NEGATIVE) Urine Cocaine Screen Negative (NEGATIVE) U Marijuana (THC) Screen Negative (NEGATIVE) 01/06/21 01/06/21 01/06/21 Range/Units 15:31 15:31 19:00 APTT 37.2 H (22.0-34.0) SEC POC Glucose (70-99) mg/dL Troponin I High Sens 5312 H* 4248 H* (<=76) pg/mL Urine Color (YELLOW) Urine Appearance (CLEAR) Urine pH (5.0-9.0) Ur Specific [place] (1.005-1.030) Urine Protein (NEGATIVE) Urine Glucose (UA) (NEGATIVE) Urine Ketones (NEGATIVE) Urine Occult Blood (NEGATIVE) Urine Nitrite (NEGATIVE) Urine Bilirubin (NEGATIVE) Urine Urobilinogen (0.2-1.0) mg/dL Ur Leukocyte Esterase (NEGATIVE) Urine RBC (0-5) /HPF Urine WBC (0-5/HPF) /HPF Ur Epithelial Cells (NOT SEEN) /HPF Amorphous Sediment (NOT SEEN) /HPF Urine Bacteria (0-FEW/HPF) /HPF Urine Mucus (NOT SEEN) /LPF Urine Opiates Screen (NEGATIVE) Ur Oxycodone Screen (NEGATIVE) Urine Methadone Screen (NEGATIVE) Ur Barbiturates Screen (NEGATIVE) U Tricyclic Antidepress (NEGATIVE) Ur Phencyclidine Scrn (NEGATIVE) Ur Amphetamine Screen (NEGATIVE) U Methamphetamines Scrn (NEGATIVE) Urine MDMA Screen (NEGATIVE) U Benzodiazepines Scrn (NEGATIVE) Urine Cocaine Screen (NEGATIVE) U Marijuana (THC) Screen (NEGATIVE) 01/06/21 Range/Units 22:05 APTT 39.4 H (22.0-34.0) SEC POC Glucose (70-99) mg/dL Troponin I High Sens (<=76) pg/mL Urine Color (YELLOW) Urine Appearance (CLEAR) Urine pH (5.0-9.0) Ur Specific [place] (1.005-1.030) Urine Protein (NEGATIVE) Urine Glucose (UA) (NEGATIVE) Urine Ketones (NEGATIVE) Urine Occult Blood (NEGATIVE) Urine Nitrite (NEGATIVE) Urine Bilirubin (NEGATIVE) Urine Urobilinogen (0.2-1.0) mg/dL Ur Leukocyte Esterase (NEGATIVE) Urine RBC (0-5) /HPF Urine WBC (0-5/HPF) /HPF Ur Epithelial Cells (NOT SEEN) /HPF Amorphous Sediment (NOT SEEN) /HPF Urine Bacteria (0-FEW/HPF) /HPF Urine Mucus (NOT SEEN) /LPF Urine Opiates Screen (NEGATIVE) Ur Oxycodone Screen (NEGATIVE) Urine Methadone Screen (NEGATIVE) Ur Barbiturates Screen (NEGATIVE) U Tricyclic Antidepress (NEGATIVE) Ur Phencyclidine Scrn (NEGATIVE) Ur Amphetamine Screen (NEGATIVE) U Methamphetamines Scrn (NEGATIVE) Urine MDMA Screen (NEGATIVE) U Benzodiazepines Scrn (NEGATIVE) Urine Cocaine Screen (NEGATIVE) U Marijuana (THC) Screen (NEGATIVE) Result Diagrams: 01/05/21 21:50 01/07/21 05:25 Sepsis Event Note - Evaluation Sepsis Screening Result: No Definite Risk - Focused Exam Vital Signs: Vital Signs Temp Pulse Pulse Resp BP BP Pulse Ox 01/07/21 04:00 98.6 F 64 16 130/70 95 01/07/21 00:00 98.2 F 64 16 126/62 96 01/06/21 20:34 70 125/70 01/06/21 20:00 98.0 F 61 18 137/50 L 95 - Problem List & Annotations (1) Chest pain SNOMED Code(s): 06391482 Code(s): R07.9 - CHEST PAIN, UNSPECIFIED Status: Acute Current Visit: Yes Qualifiers: Chest pain type: unspecified Qualified Code(s): R07.9 - Chest pain, unspecified (2) Elevated troponin SNOMED Code(s): 275309555, 457062296, 068409321 Code(s): R79.89 - OTHER SPECIFIED ABNORMAL FINDINGS OF BLOOD CHEMISTRY Status: Acute Current Visit: Yes (3) Full code status SNOMED Code(s): 798341812 Code(s): Z78.9 - OTHER SPECIFIED HEALTH STATUS Status: Acute Current Visit: Yes (4) HTN (hypertension) SNOMED Code(s): 25006693 Code(s): I10 - ESSENTIAL (PRIMARY) HYPERTENSION Status: Acute Current Visit: Yes (5) Hemodialysis patient SNOMED Code(s): 403904585 Code(s): Z99.2 - DEPENDENCE ON RENAL DIALYSIS Status: Acute Current Visit: Yes (6) History of end stage renal disease SNOMED Code(s): 010906304 Code(s): Z87.448 - PERSONAL HISTORY OF OTHER DISEASES OF URINARY SYSTEM Status: Acute Current Visit: Yes (7) Hyperlipidemia SNOMED Code(s): 52879449 Code(s): E78.5 - HYPERLIPIDEMIA, UNSPECIFIED Status: Acute Current Visit: Yes - Problem List Review Problem List Initiated/Reviewed/Updated: Yes - Plan Plan:: NSTEMI/ ACS Patient's troponin peaked at 6125. Continue on medical therapy for acute coronary syndrome including heparin drip, nitro as needed, patient is already on aspirin, plavix, metoprolol, NIKKI inhibitor, high intensity statin. Patient is awaiting transfer to [facility] for cardiology evaluation Pt is currently angina free. ESRD on HD Patient is on Saturday dialysis did not receive dialysis yesterday and is due. Potassium is 5.6, will repeat this afternoon and consider Kayexalate if needed. No significant uremic symptoms. Volume status appears stable. Left upper lobe lung nodule CT chest indicated spiculated mass in the left upper lobe and additional mass in the right lobe. Given patient's smoking history concern for primary pulmonary malignancy. Patient will likely require biopsy and consultation with oncology. H Continue home medications Hyperlipidemia -continue statin
[2021-01-07] MEDS: amLODIPine 5 MG Tab PO SCH (08:08)
[2021-01-07] MEDS: Bumetanide 1 MG Tab PO SCH (08:08)
[2021-01-07] MEDS: Metoprolol Tartrate 50 MG Tab PO SCH (08:08)
[2021-01-07] MEDS: Calcium Carbonate 500 MG Tab.Chew PO SCH ×3 (08:08→17:13)
[2021-01-07] MEDS: Vitamin B Complex Cap PO SCH (08:09)
[2021-01-07] MEDS: Clopidogrel 75 MG Tab PO SCH (08:09)
[2021-01-07] MEDS: CALCIUM ACETATE 667 MG PO SCH ×3 (08:16→17:13)
[2021-01-07 17:12] VITALS: BP 159/57; PULSE 65
== END 2021-01-07 17:30 | DRG 280 ==
LOC: DL.ED 21:20 → DL.MS 01-06 03:18
PROVIDERS: ADMIT Hospitalist; ATTEND Internal Medicine
DX: I21.4 Non-ST elevation (NSTEMI) myocardial infarction (principal); R07.9 Chest pain, unspecified; C34.90 Malignant neoplasm of unspecified part of unspecified bronchus or lung; I12.0 Hypertensive chronic kidney disease with stage 5 chronic kidney disease or end stage renal disease; I24.9 Acute ischemic heart disease, unspecified; E78.5 Hyperlipidemia, unspecified; R77.8 Other specified abnormalities of plasma proteins; R91.1 Solitary pulmonary nodule; H54.7 Unspecified visual loss; H91.90 Unspecified hearing loss, unspecified ear; E78.00 Pure hypercholesterolemia, unspecified; K80.20 Calculus of gallbladder without cholecystitis without obstruction; M54.9 Dorsalgia, unspecified; G89.29 Other chronic pain; D63.1 Anemia in chronic kidney disease; Z77.090 Contact with and (suspected) exposure to asbestos; I25.2 Old myocardial infarction; Z95.5 Presence of coronary angioplasty implant and graft; I13.2 Hypertensive heart and chronic kidney disease with heart failure and with stage 5 chronic kidney disease, or end stage renal disease; E11.22 Type 2 diabetes mellitus with diabetic chronic kidney disease; N18.6 End stage renal disease; Z88.6 Allergy status to analgesic agent; I50.9 Heart failure, unspecified; Z99.2 Dependence on renal dialysis; M19.90 Unspecified osteoarthritis, unspecified site; D64.9 Anemia, unspecified; Z91.012 Allergy to eggs; Z88.8 Allergy status to other drugs, medicaments and biological substances; Z91.018 Allergy to other foods; Z79.02 Long term (current) use of antithrombotics/antiplatelets; Z79.899 Other long term (current) drug therapy; Z20.822 Contact with and (suspected) exposure to COVID-19
CPT/HCPCS: 36415; 71045; 71250; 80048; 80053; 80305-QW; 80307; 81001; 82150; 82947; 83690; 83735; 83880; 84132; 84484; 85025; 85610; 85730; 86140; 93005; A9270-GY; J1644; J2270; U0002

== ENCOUNTER 2021-02-04 21:37 | Emergency (ER) | payer MEDICARE, MEDICAID ==
--- NOTE | 2021-02-04 21:42 | EDM.PDOC ---
ED HPI GENERAL MEDICAL PROBLEM - General Chief Complaint: Chest Pain Stated Complaint: AMBULANCE Time Seen by Provider: 02/04/21 21:41 Source of Information: Reports: Patient, EMS, EMS Notes Reviewed, RN, RN Notes Reviewed History Limitations: Reports: No Limitations - History of Present Illness INITIAL COMMENTS - FREE TEXT/NARRATIVE: Patient is a 70-year-old male who presents to ER per [place] [facility] with complaint of left-sided chest pain that began just before 8 PM. Patient denies any radiation of the pain, states the pain was sharp and a 6/10 at its worst. Patient did receive nitro in route per EMS and states pain is now a 0/10. Patient did have an [place] in January, patient is currently on chronic hemodialysis. Patient did receive new diagnosis of bilateral lung cancer as well as colon cancer. He is to have a Port-A-Cath inserted on Saturday and to start treatment on 02/13/2021. Patient denies any nausea or vomiting. Onset: Today, Sudden Left Upper Anterior Chest Pain Score (Numeric/FACES): 1 - Related Data Allergies Allergy/AdvReac Type Severity Reaction Status Date / Time aspirin Allergy Severe Swollen Verified 02/04/21 23:01 Tongue chicken derived Allergy Rash Verified 02/04/21 23:01 egg Allergy Rash Verified 02/04/21 23:01 fish derived Allergy Rash Verified 02/04/21 23:01 ibuprofen Allergy Shortness Verified 02/04/21 23:01 of Breath Home Meds: Home Meds atorvaSTATin [Lipitor] 20 mg PO BEDTIME 12/02/15 [History] amLODIPine [Norvasc] 5 mg PO DAILY 01/10/16 [History] Vitamin B Comp W-C/FA/Zinc [Anamaria B Strong with C & Zinc Tb] 1 each PO DAILY 08/04/20 [History] Calcium Carbonate [Tums] 500 mg PO TIDMEALS 01/06/21 [History] lisinopriL [Prinivil] 10 mg PO DAILY tablet 01/06/21 [Rx] Past Medical History HEENT History: Reports: Cataract, Hard of Hearing, Impaired Vision Cardiovascular History: Reports: Aneurysm, Heart Failure, High Cholesterol, Hypertension, [place], Stents Other Cardiovascular History: PATIENT REPORTS HTN CONTROLLED BY DIALYSIS NO FURTHER MEDICATIONS ADMIN Respiratory History: Reports: None, Other (See Below) Other Respiratory History: only sleeps 2 hours a day. Gastrointestinal History: Reports: None, Cholelithiasis Genitourinary History: Reports: Dialysis, Other (See Below) Other Genitourinary History: Has dialysis tomorrow. Musculoskeletal History: Reports: Arthritis, Back Pain, Chronic Neurological History: Reports: None Psychiatric History: Reports: None Endocrine/Metabolic History: Reports: Diabetes, Type II Hematologic History: Reports: Anemia Immunologic History: Reports: None Oncologic (Cancer) History: Reports: None Dermatologic History: Reports: None - Infectious Disease History Infectious Disease History: Reports: Chicken Pox, Measles, Mumps, TB - Past Surgical History HEENT Surgical History: Reports: Cataract Surgery, Naso-Sinus Surgery, Oral Surgery Cardiovascular Surgical History: Reports: Carotid Endarterectomy, Carotid Stents Other Cardiovascular Surgeries/Procedures: percutaneous cath, angioplasty Respiratory Surgical History: Reports: None GI Surgical History: Reports: Colonoscopy, EGD Male Surgical History: Reports: None Endocrine Surgical History: Reports: None Neurological Surgical History: Reports: None Musculoskeletal Surgical History: Reports: None Dermatological Surgical History: Reports: None Social & Family History - Family History Family Medical History: No Pertinent Family History Cardiac: Reports: Afib, Angina, CAD, Cardiomyopathy, Heart Failure, High Cholesterol, Hypertension, AZ, Prior Cardiac Arrest Respiratory: Reports: COPD : Reports: Dialysis, Renal Disease/Insufficiency Musculoskeletal: Reports: Arthritis Neurological: Reports: CVA Endocrine/Metabolic: Reports: Diabetes, type II - Caffeine Use Caffeine Use: Reports: Coffee, Soda, Tea, Other - Living Situation & Occupation Living situation: Reports: Occupation: Retired ED ROS GENERAL - Review of Systems Review Of Systems: Comprehensive ROS is negative, except as noted in HPI. ED EXAM, GENERAL - Physical Exam Exam: See Below Exam Limited By: No Limitations General Appearance: Alert, WD/WN, No Apparent Distress Eye Exam: Bilateral Eye: EOMI, Normal Inspection Ears: Normal External Exam, Hearing Grossly Normal Nose: Normal Inspection Throat/Mouth: Normal Inspection, Normal Voice, No Airway Compromise Head: Atraumatic, Normocephalic Neck: Normal Inspection, Supple, Non-Tender, Full Range of Motion Respiratory/Chest: No Respiratory Distress, Lungs Clear, No Accessory Muscle Use, Chest Non-Tender, Decreased Breath Sounds Cardiovascular: Normal Peripheral Pulses, Regular Rate, Rhythm, No Edema, No Gallop, No JVD, No Murmur, No Rub Peripheral Pulses: 2+: Radial (L), Radial (R) GI/Abdominal: Normal Bowel Sounds, Soft, Non-Tender (Male) Exam: Deferred Rectal (Males) Exam: Deferred Back Exam: Normal Inspection, Full Range of Motion, NT Extremities: Normal Inspection, Normal Range of Motion, Non-Tender, No Pedal Edema, Normal Capillary Refill, Other (Fistula left arm) Neurological: Alert, Oriented, CN II-XII Intact, Normal Cognition, Normal Gait, Normal Reflexes, No Motor/Sensory Deficits Psychiatric: Normal Affect, Normal Mood Skin Exam: Warm, Dry, Intact, Normal Color, No Rash Lymphatic: No Adenopathy #1 Interpretation EKG Date: 02/04/21 Time: 21:28 Rhythm: NSR Rate (Beats/Min): 65 [place]: Normal P-Wave: Present QRS: Normal ST-T: Normal QT: Normal Comparison: No Change #2 Interpretation EKG Date: 02/05/21 Time: 00:32 Rhythm: NSR Rate (Beats/Min): 70 [place]: Normal P-Wave: Present QRS: Normal ST-T: Normal QT: Normal Comparison: No Change Course - Vital Signs Last Recorded V/S: Last Vital Signs Temp 98.1 F 02/04/21 21:35 Pulse 65 02/04/21 21:35 Resp 20 02/04/21 21:35 BP 133/59 L 02/04/21 21:35 Pulse Ox 96 02/04/21 21:35 - Orders/Labs/Meds Labs: Laboratory Tests 02/04/21 02/04/21 02/04/21 Range/Units 21:35 21:35 21:35 WBC 9.2 (5.0-10.0) 10^3/uL RBC 3.45 L (4.6-6.2) 10^6/uL Hgb 9.8 L (14.0-18.0) g/dL Hct 31.7 L (40.0-54.0) % MCV 91.9 (80-100) fL MCH 28.4 (27.0-34.0) pg MCHC 30.9 L (33.0-35.0) g/dL Plt Count 250 (150-450) 10^3/uL Neut % (Auto) 81.2 H (42.2-75.2) % Lymph % (Auto) 9.6 L (20.5-50.1) % [place] % (Auto) 6.7 (2-8) % Eos % (Auto) 1.8 (1.0-3.0) % Baso % (Auto) 0.7 (0.0-1.0) % PT 10.4 (9.0-12.0) SEC INR 1.0 (0.9-1.2) Sodium 138 (136-145) mmol/L Potassium 4.5 (3.5-5.1) mmol/L Chloride 99 (98-107) mmol/L Carbon Dioxide 28 (21-32) mmol/L Anion Gap 15.5 H (7-13) mEq/L BUN 43 H D (7-18) mg/dL Creatinine 7.42 H* D (0.70-1.30) mg/dL Est Cr Clr Drug Dosing 9.70 mL/min Estimated GFR (MDRD) 7 BUN/Creatinine Ratio 5.8 (No establ ref range) Glucose 293 H (70-99) mg/dL Calcium 8.5 (8.5-10.1) mg/dL Magnesium 1.8 (1.8-2.4) mg/dL Total Bilirubin 0.4 (0.2-1.0) mg/dL AST 10 L (15-37) U/L ALT 21 (16-63) U/L Alkaline Phosphatase 165 H (46-116) U/L Troponin I High Sens 33 (<=76) pg/mL Total Protein 7.0 (6.4-8.2) g/dL Albumin 3.0 L (3.4-5.0) g/dL Globulin 4.0 Albumin/Globulin Ratio 0.75 02/04/21 Range/Units 23:35 WBC (5.0-10.0) 10^3/uL RBC (4.6-6.2) 10^6/uL Hgb (14.0-18.0) g/dL Hct (40.0-54.0) % MCV (80-100) fL MCH (27.0-34.0) pg MCHC (33.0-35.0) g/dL Plt Count (150-450) 10^3/uL Neut % (Auto) (42.2-75.2) % Lymph % (Auto) (20.5-50.1) % [place] % (Auto) (2-8) % Eos % (Auto) (1.0-3.0) % Baso % (Auto) (0.0-1.0) % PT (9.0-12.0) SEC INR (0.9-1.2) Sodium (136-145) mmol/L Potassium (3.5-5.1) mmol/L Chloride (98-107) mmol/L Carbon Dioxide (21-32) mmol/L Anion Gap (7-13) mEq/L BUN (7-18) mg/dL Creatinine (0.70-1.30) mg/dL Est Cr Clr Drug Dosing mL/min Estimated GFR (MDRD) BUN/Creatinine Ratio (No establ ref range) Glucose (70-99) mg/dL Calcium (8.5-10.1) mg/dL Magnesium (1.8-2.4) mg/dL Total Bilirubin (0.2-1.0) mg/dL AST (15-37) U/L ALT (16-63) U/L Alkaline Phosphatase (46-116) U/L Troponin I High Sens 70 (<=76) pg/mL Total Protein (6.4-8.2) g/dL Albumin (3.4-5.0) g/dL Globulin Albumin/Globulin Ratio - Radiology Interpretation Free Text/Narrative:: Chest xray: [facility] Final Radiology Report Call: [phone] assistance Online chat: [email or web address] Name: CHANDA ARMIJO Age: 70Years M Date: 02/04/2021 SSN: -- : 1950 Study: CR CHEST 1V FRONTAL Requesting Physician: Carmen Nickerson Images: 1 Addl Studies: Provided Clinical History: chest pain Contrast: Contrast Medium: Contrast Amount: Contrast Method: Page 1 of 2 PROCEDURE INFORMATION: Exam: XR Chest Exam date and time: 02/04/2021 9:46 PM Age: 70 years old Clinical indication: Other: Chest pain TECHNIQUE: Imaging protocol: XR of the chest. Views: 1 view. COMPARISON: CT Chest wo Cont 01/06/2021 11:05 AM FINDINGS: Lungs: Mildly lobulated nodule in the right middle lobe is unchanged compared with 01/06/2021. Additional nodules noted on the prior CT scan are not as well visualized on the current chest x-ray. No focal consolidation. No pulmonary edema. Stable scarring in the right middle lobe and right lower lobe. Pleural spaces: Pleural calcifications in the lower right hemithorax are stable, findings may suggest sequela of prior infection, trauma, or asbestos related pleural disease. Heart/Mediastinum: Stable mild enlargement of the cardiac silhouette. Mediastinal contours are unremarkable. Vasculature: Stable vascular calcifications in the aorta. Bones/joints: Unremarkable for age. IMPRESSION: 1. Mildly lobulated nodule in the right middle lobe is unchanged compared with 01/06/2021. Additional nodules noted on the prior CT scan are not as well visualized on the current chest x-ray. Findings are suspicious for primary or metastatic pulmonary mass. Recommend clinical correlation. 2. No acute cardiopulmonary process. 3. Pleural calcifications in the lower right hemithorax are stable, findings may suggest sequela of prior infection, trauma, or asbestos related pleural disease. 4. Incidental/nonacute findings are listed in the report. Thank you for allowing us to participate in the care of your patient. Dictated and Authenticated by: Portia Rizo MD 02/04/2021 11:02 PM Central Time ([place] & [place]) See rad report Departure - Departure Time of Disposition: 00:43 Disposition: Home, Self-Care 01 Reason for Transfer *Q: Other Condition: Good Clinical Impression: Angina, Chest pain Instructions: Chest Wall Pain, [id number], Angina, [id number] Referrals: Collin Angel [Primary Care Provider] - Forms: ED Department Discharge Additional Instructions: Rest Return to the ER with any worsening of symptoms Follow up with your primary care facility next week Sepsis Event Note (ED) - Focused Exam Vital Signs: Vital Signs Temp Pulse Resp BP Pulse Ox 02/04/21 21:35 98.1 F 65 20 133/59 L 96
[2021-02-04 22:03] LABS: ANION GAP 15.5 mEq/L (7-13)
[2021-02-04 23:00] VITALS: BP 133/59; PULSE 65
--- NOTE | 2021-02-04 23:02 | CR ---
PROCEDURE INFORMATION: Exam: XR Chest Exam date and time: 02/04/2021 9:46 PM Age: 70 years old Clinical indication: Other: Chest pain TECHNIQUE: Imaging protocol: XR of the chest. Views: 1 view. COMPARISON: CT Chest wo Cont 01/06/2021 11:05 AM FINDINGS: Lungs: Mildly lobulated nodule in the right middle lobe is unchanged compared with 01/06/2021. Additional nodules noted on the prior CT scan are not as well visualized on the current chest x-ray. No focal consolidation. No pulmonary edema. Stable scarring in the right middle lobe and right lower lobe. Pleural spaces: Pleural calcifications in the lower right hemithorax are stable, findings may suggest sequela of prior infection, trauma, or asbestos related pleural disease. Heart/Mediastinum: Stable mild enlargement of the cardiac silhouette. Mediastinal contours are unremarkable. Vasculature: Stable vascular calcifications in the aorta. Bones/joints: Unremarkable for age. IMPRESSION: 1. Mildly lobulated nodule in the right middle lobe is unchanged compared with 01/06/2021. Additional nodules noted on the prior CT scan are not as well visualized on the current chest x-ray. Findings are suspicious for primary or metastatic pulmonary mass. Recommend clinical correlation. 2. No acute cardiopulmonary process. 3. Pleural calcifications in the lower right hemithorax are stable, findings may suggest sequela of prior infection, trauma, or asbestos related pleural disease. 4. Incidental/nonacute findings are listed in the report.
== END 2021-02-05 00:43 | disposition home or self-care (01) ==
LOC: DL.ED 21:37
DX: I20.9 Angina pectoris, unspecified (principal); I11.0 Hypertensive heart disease with heart failure; I50.9 Heart failure, unspecified; E78.00 Pure hypercholesterolemia, unspecified; I25.2 Old myocardial infarction; E11.9 Type 2 diabetes mellitus without complications; Z79.84 Long term (current) use of oral hypoglycemic drugs; Z79.899 Other long term (current) drug therapy; Z88.8 Allergy status to other drugs, medicaments and biological substances; Z88.6 Allergy status to analgesic agent; Z91.012 Allergy to eggs
CPT/HCPCS: 36415; 71045; 80053; 83735; 84484; 85025; 85610; 93005; 99285-25

== ENCOUNTER 2021-03-01 08:48 | Emergency (ER) | payer MEDICARE, MEDICAID ==
[2021-03-01 09:05] VITALS: BP 110/69; PULSE 92
--- NOTE | 2021-03-01 09:18 | CR ---
PROCEDURE INFORMATION: Exam: XR Chest Exam date and time: 03/01/2021 8:58 AM Age: 70 years old Clinical indication: Pain; Other: Chest; Additional info: Chest pain TECHNIQUE: Imaging protocol: XR of the chest. Views: 1 view. COMPARISON: CR Chest 1V Frontal 02/04/2021 9:46 PM FINDINGS: Tubes, catheters and devices: An infusion port is present. Lungs: Extensive right hemithorax pleural calcification. Bilateral pulmonary masses worrisome for pulmonary metastatic disease. Pleural spaces: There is a blunted right costophrenic angle consistent with small effusion or pleural scarring. Heart/Mediastinum: The heart is enlarged. Bones/joints: Unremarkable. IMPRESSION: 1. Extensive right hemithorax pleural calcification. 2. Bilateral pulmonary masses worrisome for pulmonary metastatic disease.
[2021-03-01 09:20] LABS: ANION GAP 15.6 mEq/L (7-13); CHLORIDE,CL 98 mmol/L (98-107); SODIUM,NA 140 mmol/L (136-145)
--- NOTE | 2021-03-01 09:50 | EDM.PDOC ---
ED HPI GENERAL MEDICAL PROBLEM - General Chief Complaint: Chest Pain Stated Complaint: FROM DIALYSIS CHEST PAIN Time Seen by Provider: 03/01/21 09:30 Source of Information: Reports: Patient History Limitations: Reports: No Limitations - History of Present Illness INITIAL COMMENTS - FREE TEXT/NARRATIVE: This 70 yo male patient reports to the ED with chest pain. The patient reports he has been having intermittent symptoms over the past couple of weeks. The patient reports he was advised by his cancer doctor (Dr. Boyle with [facility] in [place]) that he would have intermittent chest pain. The patient was diagnosed with bilateral lung cancer and diffuse colon cancer. The patient is currently on Chemo. The patient reports he was advised to take his oxycodone. The patient reports his chest pain has gone away by the time of assessment. Onset: Today Duration: Resolved Prior to Arrival Location: Reports: Chest Quality: Reports: Other Severity: Moderate Improves with: Reports: None Worsens with: Reports: None Context: Reports: Other Associated Symptoms: Reports: Chest Pain - Related Data Allergies Allergy/AdvReac Type Severity Reaction Status Date / Time aspirin Allergy Severe Swollen Verified 02/04/21 23:01 Tongue chicken derived Allergy Rash Verified 02/04/21 23:01 egg Allergy Rash Verified 02/04/21 23:01 fish derived Allergy Rash Verified 02/04/21 23:01 ibuprofen Allergy Shortness Verified 02/04/21 23:01 of Breath Home Meds: Home Meds atorvaSTATin [Lipitor] 20 mg PO BEDTIME 12/02/15 [History] amLODIPine [Norvasc] 5 mg PO DAILY 01/10/16 [History] Vitamin B Comp W-C/FA/Zinc [Anamaria B Strong with C & Zinc Tb] 1 each PO DAILY 08/04/20 [History] Calcium Carbonate [Tums] 500 mg PO TIDMEALS 01/06/21 [History] lisinopriL [Prinivil] 10 mg PO DAILY tablet 01/06/21 [Rx] Past Medical History HEENT History: Reports: Cataract, Hard of Hearing, Impaired Vision Cardiovascular History: Reports: Aneurysm, Heart Failure, High Cholesterol, Hypertension, [place], Stents Other Cardiovascular History: PATIENT REPORTS HTN CONTROLLED BY DIALYSIS NO FURTHER MEDICATIONS ADMIN Respiratory History: Reports: None, Other (See Below) Other Respiratory History: only sleeps 2 hours a day. Gastrointestinal History: Reports: None, Cholelithiasis Genitourinary History: Reports: Dialysis, Other (See Below) Other Genitourinary History: Has dialysis tomorrow. Musculoskeletal History: Reports: Arthritis, Back Pain, Chronic Neurological History: Reports: None Psychiatric History: Reports: None Endocrine/Metabolic History: Reports: Diabetes, Type II Hematologic History: Reports: Anemia Immunologic History: Reports: None Oncologic (Cancer) History: Reports: Colon, Lung Other Oncologic History: patient states was diagnosed with cancer in both lungs and in his colon during his recent hospitalization for AZ January 2021 Dermatologic History: Reports: None - Infectious Disease History Infectious Disease History: Reports: Chicken Pox, Measles, Mumps, TB - Past Surgical History HEENT Surgical History: Reports: Cataract Surgery, Naso-Sinus Surgery, Oral Surgery Cardiovascular Surgical History: Reports: Carotid Endarterectomy, Carotid Stents Other Cardiovascular Surgeries/Procedures: percutaneous cath, angioplasty Respiratory Surgical History: Reports: None GI Surgical History: Reports: Colonoscopy, EGD Male Surgical History: Reports: None Endocrine Surgical History: Reports: None Neurological Surgical History: Reports: None Musculoskeletal Surgical History: Reports: None Dermatological Surgical History: Reports: None Social & Family History - Family History Family Medical History: No Pertinent Family History Cardiac: Reports: Afib, Angina, CAD, Cardiomyopathy, Heart Failure, High Cholesterol, Hypertension, [place], Prior Cardiac Arrest Respiratory: Reports: COPD : Reports: Dialysis, Renal Disease/Insufficiency Musculoskeletal: Reports: Arthritis Neurological: Reports: CVA Endocrine/Metabolic: Reports: Diabetes, type II - Tobacco Use Tobacco Use Status *Q: Never Tobacco User - Caffeine Use Caffeine Use: Reports: None - Recreational Drug Use Recreational Drug Use: No - Living Situation & Occupation Living situation: Reports: Occupation: Retired ED ROS GENERAL - Review of Systems Review Of Systems: Comprehensive ROS is negative, except as noted in HPI. ED EXAM, GENERAL - Physical Exam Exam: See Below Exam Limited By: No Limitations General Appearance: Alert, WD/WN, No Apparent Distress Eye Exam: Bilateral Eye: EOMI, Normal Inspection, PERRL Ears: Normal External Exam, Normal Canal, Hearing Grossly Normal, Normal TMs Nose: Normal Inspection, Normal Mucosa, No Blood Throat/Mouth: Normal Inspection, Normal Lips, Normal Teeth, Normal Gums, Normal Oropharynx, Normal Voice, No Airway Compromise Head: Atraumatic, Normocephalic Neck: Normal Inspection, Supple, Non-Tender, Full Range of Motion Respiratory/Chest: No Respiratory Distress, Lungs Clear, Normal Breath Sounds, No Accessory Muscle Use, Chest Non-Tender Cardiovascular: Normal Peripheral Pulses, Regular Rate, Rhythm, No Edema, No Gallop, No JVD, No Murmur, No Rub GI/Abdominal: Normal Bowel Sounds, Soft, Non-Tender, No Organomegaly, No Distention, No Abnormal Bruit, No Mass (Male) Exam: Deferred Rectal (Males) Exam: Deferred Back Exam: Normal Inspection, Full Range of Motion, NT Extremities: Normal Inspection, Normal Range of Motion, Non-Tender, Normal Capillary Refill, No Pedal Edema Neurological: Alert, Oriented, CN II-XII Intact, Normal Cognition, Normal Gait, Normal Reflexes, No Motor/Sensory Deficits Psychiatric: Normal Affect, Normal Mood Skin Exam: Warm, Dry, Intact, Normal Color, No Rash Lymphatic: No Adenopathy #1 Interpretation EKG Date: 03/01/21 Time: 09:59 Rhythm: NSR Rate (Beats/Min): 89 [place]: Normal P-Wave: Present QRS: Normal ST-T: Normal QT: Normal Comparison: No Change Course - Vital Signs Last Recorded V/S: Last Vital Signs Temp 97.8 F 03/01/21 09:04 Pulse 92 03/01/21 09:04 Resp 16 03/01/21 09:04 BP 110/69 03/01/21 09:04 Pulse Ox 96 03/01/21 09:04 - Orders/Labs/Meds Orders: Active Orders 24 hr Category Date Time Status CULTURE BLOOD [BC] Stat Lab 03/01/21 08:50 Received DRUG SCREEN URINE BIORAD [URCHEM] Stat Lab 03/01/21 08:21 Ordered UA RFX MARCK AND CULT IF INDIC [URIN] Urgent Lab 03/01/21 08:21 Ordered Labs: Laboratory Tests 03/01/21 03/01/21 03/01/21 Range/Units 08:50 08:50 08:50 WBC 5.6 (5.0-10.0) 10^3/uL RBC 3.25 L (4.6-6.2) 10^6/uL Hgb 9.2 L (14.0-18.0) g/dL Hct 29.0 L (40.0-54.0) % MCV 89.2 (80-100) fL MCH 28.3 (27.0-34.0) pg MCHC 31.7 L (33.0-35.0) g/dL Plt Count 275 (150-450) 10^3/uL Neut % (Auto) 90.9 H (42.2-75.2) % Lymph % (Auto) 4.6 L (20.5-50.1) % [place] % (Auto) 3.6 (2-8) % Eos % (Auto) 0.4 L (1.0-3.0) % Baso % (Auto) 0.5 (0.0-1.0) % PT 10.1 (9.0-12.0) SEC INR 1.0 (0.9-1.2) D-Dimer, Quantitative 1980 H (0-400) ng/mL Sodium 140 (136-145) mmol/L Potassium 3.6 (3.5-5.1) mmol/L Chloride 98 (98-107) mmol/L Carbon Dioxide 30 (21-32) mmol/L Anion Gap 15.6 H (7-13) mEq/L BUN 31 H (7-18) mg/dL Creatinine 4.59 H D (0.70-1.30) mg/dL Est Cr Clr Drug Dosing TNP Estimated GFR (MDRD) 13 BUN/Creatinine Ratio 6.8 (No establ ref range) Glucose 172 H (70-99) mg/dL Lactic Acid (0.4-2.0) mmol/L Calcium 8.3 L (8.5-10.1) mg/dL Total Bilirubin 1.5 H (0.2-1.0) mg/dL AST 184 H (15-37) U/L ALT 141 H (16-63) U/L Alkaline Phosphatase 819 H (46-116) U/L Troponin I High Sens 510 H* (<=76) pg/mL Total Protein 8.0 (6.4-8.2) g/dL Albumin 2.9 L (3.4-5.0) g/dL Globulin 5.1 Albumin/Globulin Ratio 0.57 03/01/21 03/01/21 Range/Units 08:50 10:55 WBC (5.0-10.0) 10^3/uL RBC (4.6-6.2) 10^6/uL Hgb (14.0-18.0) g/dL Hct (40.0-54.0) % MCV (80-100) fL MCH (27.0-34.0) pg MCHC (33.0-35.0) g/dL Plt Count (150-450) 10^3/uL Neut % (Auto) (42.2-75.2) % Lymph % (Auto) (20.5-50.1) % [place] % (Auto) (2-8) % Eos % (Auto) (1.0-3.0) % Baso % (Auto) (0.0-1.0) % PT (9.0-12.0) SEC INR (0.9-1.2) D-Dimer, Quantitative (0-400) ng/mL Sodium (136-145) mmol/L Potassium (3.5-5.1) mmol/L Chloride (98-107) mmol/L Carbon Dioxide (21-32) mmol/L Anion Gap (7-13) mEq/L BUN (7-18) mg/dL Creatinine (0.70-1.30) mg/dL Est Cr Clr Drug Dosing Estimated GFR (MDRD) BUN/Creatinine Ratio (No establ ref range) Glucose (70-99) mg/dL Lactic Acid 1.0 (0.4-2.0) mmol/L Calcium (8.5-10.1) mg/dL Total Bilirubin (0.2-1.0) mg/dL AST (15-37) U/L ALT (16-63) U/L Alkaline Phosphatase (46-116) U/L Troponin I High Sens 490 H* (<=76) pg/mL Total Protein (6.4-8.2) g/dL Albumin (3.4-5.0) g/dL Globulin Albumin/Globulin Ratio Departure - Departure Time of Disposition: 11:25 Disposition: Home, Self-Care 01 Condition: Fair Clinical Impression: Nonspecific chest pain Instructions: Nonspecific Chest Pain, Adult, [id number] Forms: ED Department Discharge Care Plan Goals: The patient was advised of the examination, initial lab, x-ray, EKG and repeat lab results during the visit. With the patient's troponin level not elevating during the visit and the patient becoming asymptomatic without treatment, the patient was discharged. If the patient has any additional symptoms or concerns, the patient should either return to the emergency department or visit his primary care facility. Sepsis Event Note (ED) - Focused Exam Vital Signs: Vital Signs Temp Pulse Resp BP Pulse Ox 03/01/21 09:04 97.8 F 92 16 110/69 96 - My Orders Last 24 Hours: My Active Orders 03/01/21 08:21 DRUG SCREEN URINE BIORAD [URCHEM] Stat UA RFX MARCK AND CULT IF INDIC [URIN] Urgent 03/01/21 08:50 CULTURE BLOOD [BC] Stat - Assessment/Plan Last 24 Hours: My Active Orders 03/01/21 08:21 DRUG SCREEN URINE BIORAD [URCHEM] Stat UA RFX MARCK AND CULT IF INDIC [URIN] Urgent 03/01/21 08:50 CULTURE BLOOD [BC] Stat
== END 2021-03-01 11:33 | disposition home or self-care (01) ==
LOC: DL.ED 08:48
DX: R07.9 Chest pain, unspecified (principal); I11.0 Hypertensive heart disease with heart failure; I50.9 Heart failure, unspecified; E78.00 Pure hypercholesterolemia, unspecified; I25.2 Old myocardial infarction; I10 Essential (primary) hypertension; E11.9 Type 2 diabetes mellitus without complications; Z88.8 Allergy status to other drugs, medicaments and biological substances; Z91.018 Allergy to other foods; Z91.012 Allergy to eggs; Z88.6 Allergy status to analgesic agent; Z79.899 Other long term (current) drug therapy
CPT/HCPCS: 36415; 71045; 80053; 83605; 84484; 85025; 85379; 85610; 87040; 93005; 99285-25

== ENCOUNTER 2021-03-07 10:47 | Inpatient (IN) | payer MEDICARE, MEDICAID ==
[2021-03-07] MEDS ORDERED: Sodium Chloride 0.9% 10 ML Syringe FLUSH PRN ×2 (10:54→15:57)
--- NOTE | 2021-03-07 10:54 | EDM.PDOC ---
ED HPI GENERAL MEDICAL PROBLEM - General Chief Complaint: Respiratory Problem Stated Complaint: AMBULANCE Time Seen by Provider: 03/07/21 10:53 Source of Information: Reports: Patient, EMS, Old Records, RN, RN Notes Reviewed History Limitations: Reports: No Limitations - History of Present Illness INITIAL COMMENTS - FREE TEXT/NARRATIVE: Pt arrives to ER from home by POV with c/o shortness of breath for 3 days. Pt states he was recently diagnosed with colon and B/L lung cancer, and began chemo treatment on 02/13/21. He has Hx of CAD with WA/stents, and CHF, and Hx of ESRD on hemodialysis M/W/. Pt denies cough or fever. Admits to orthopnea. He says he had a partial dialysis run Saturday and had a full run yesterday (03/06/11). Pt states he did not take any of his medications today, and is past due for his oxycodone. Admits to recurrent chest pain over the past week that comes and goes randomly without association with activity or exertion. He denies current chest pain. Denies edema, or palpitations. Denies hemoptysis, rectal bleeding, or melena. Onset: Gradual Duration: Day(s): (3), Constant, Getting Worse Quality: Reports: Ache Severity: Moderate Improves with: Reports: None Worsens with: Reports: None Associated Symptoms: Reports: No Other Symptoms Bilateral Cheek Pain Score (Numeric/FACES): 6 - Related Data Allergies Allergy/AdvReac Type Severity Reaction Status Date / Time aspirin Allergy Severe Swollen Verified 02/04/21 23:01 Tongue chicken derived Allergy Rash Verified 02/04/21 23:01 egg Allergy Rash Verified 02/04/21 23:01 fish derived Allergy Rash Verified 02/04/21 23:01 ibuprofen Allergy Shortness Verified 02/04/21 23:01 of Breath Home Meds: Home Meds atorvaSTATin [Lipitor] 20 mg PO BEDTIME 12/02/15 [History] amLODIPine [Norvasc] 5 mg PO DAILY 01/10/16 [History] Vitamin B Comp W-C/FA/Zinc [Anamaria B Strong with C & Zinc Tb] 1 each PO DAILY 0 08/04/20 [History] Calcium Carbonate [Tums] 500 mg PO TIDMEALS 01/06/21 [History] lisinopriL [Prinivil] 10 mg PO DAILY tablet 01/06/21 [Rx] Past Medical History HEENT History: Reports: Cataract, Hard of Hearing, Impaired Vision Cardiovascular History: Reports: Aneurysm, Heart Failure, High Cholesterol, Hypertension, WA, Stents Other Cardiovascular History: PATIENT REPORTS HTN CONTROLLED BY DIALYSIS NO FURTHER MEDICATIONS ADMIN Respiratory History: Reports: None, Other (See Below) Other Respiratory History: only sleeps 2 hours a day. Gastrointestinal History: Reports: None, Cholelithiasis Genitourinary History: Reports: Dialysis, Other (See Below) Other Genitourinary History: Has dialysis tomorrow. Musculoskeletal History: Reports: Arthritis, Back Pain, Chronic Neurological History: Reports: None Psychiatric History: Reports: None Endocrine/Metabolic History: Reports: Diabetes, Type II Hematologic History: Reports: Anemia Immunologic History: Reports: None Oncologic (Cancer) History: Reports: Colon, Lung Other Oncologic History: patient states was diagnosed with cancer in both lungs and in his colon during his recent hospitalization for WA January 2021 Dermatologic History: Reports: None - Infectious Disease History Infectious Disease History: Reports: Chicken Pox, Measles, Mumps, TB - Past Surgical History HEENT Surgical History: Reports: Cataract Surgery, Naso-Sinus Surgery, Oral Surgery Cardiovascular Surgical History: Reports: Carotid Endarterectomy, Carotid Stents Other Cardiovascular Surgeries/Procedures: percutaneous cath, angioplasty Respiratory Surgical History: Reports: None GI Surgical History: Reports: Colonoscopy, EGD Male Surgical History: Reports: None Endocrine Surgical History: Reports: None Neurological Surgical History: Reports: None Musculoskeletal Surgical History: Reports: None Dermatological Surgical History: Reports: None Social & Family History - Family History Family Medical History: No Pertinent Family History Cardiac: Reports: Afib, Angina, CAD, Cardiomyopathy, Heart Failure, High Cholesterol, Hypertension, WA, Prior Cardiac Arrest Respiratory: Reports: COPD : Reports: Dialysis, Renal Disease/Insufficiency Musculoskeletal: Reports: Arthritis Neurological: Reports: CVA Endocrine/Metabolic: Reports: Diabetes, type II - Caffeine Use Caffeine Use: Reports: Coffee - Living Situation & Occupation Living situation: Reports: Occupation: Retired ED ROS GENERAL - Review of Systems Review Of Systems: Comprehensive ROS is negative, except as noted in HPI. ED EXAM, GENERAL - Physical Exam Exam: See Below Exam Limited By: No Limitations General Appearance: Alert, No Apparent Distress, Other (Chronically ill appearing) Eye Exam: Bilateral Eye: Normal Inspection Nose: Normal Inspection Throat/Mouth: Normal Voice, No Airway Compromise Head: Atraumatic, Normocephalic Neck: Normal Inspection, Non-Tender Respiratory/Chest: No Respiratory Distress, No Accessory Muscle Use, Chest Non- Tender, Decreased Breath Sounds, Crackles, Wheezing. No: Stridor, Retractions, Splinting Cardiovascular: Regular Rate, Rhythm, No Edema, Tachycardia GI/Abdominal: Normal Bowel Sounds, Soft, Non-Tender Extremities: Normal Inspection, Non-Tender, No Pedal Edema Neurological: Alert, Oriented, No Motor/Sensory Deficits Psychiatric: Depressed Mood, Flat Affect Skin Exam: Warm, Dry, Intact, Normal Color, No Rash #1 Interpretation EKG Date: 03/07/21 Time: 11:12 Rhythm: Other (Sinus tach) Rate (Beats/Min): 104 [place]: Normal P-Wave: Present QRS: Normal ST-T: Other (Small ST segment depression in leads II and aVF. Chronic/stable ST elevation V1, V2, and chronic ST depression in lateral leads compared to old EKGs.) Course - Vital Signs Last Recorded V/S: Last Vital Signs Temp 98.6 F 03/07/21 10:52 Pulse 100 03/07/21 10:52 Resp 18 03/07/21 10:52 BP 101/50 L 03/07/21 12:43 Pulse Ox 94 L 03/07/21 10:52 - Orders/Labs/Meds Orders: Active Orders 24 hr Category Date Time Status EKG 12 Lead [EKG Documentation Completion] [RC] STAT Care 03/07/21 10:55 Active Peripheral IV Care [RC] . DIRECTED Care 03/07/21 10:56 Active RT Aerosol Therapy [RC] ASDIRECTED Care 03/07/21 10:56 Active Sodium Chloride 0.9% [Saline Flush] Med 03/07/21 10:54 Active 10 ml FLUSH ASDIRECTED PRN Peripheral IV Insertion Adult [OM.PC] Stat Oth 03/07/21 10:55 Ordered Medication Orders Sodium Chloride (Sodium Chloride 0.9% 10 Ml Syringe) 10 ml FLUSH ASDIRECTED PRN PRN Reason: Keep Vein Open Last Admin: 03/07/21 12:15 Dose: 10 ml Documented by: TERRELL Labs: Laboratory Tests 03/07/21 03/07/21 03/07/21 Range/Units 11:06 11:06 11:06 WBC 9.1 (5.0-10.0) 10^3/uL RBC 2.96 L (4.6-6.2) 10^6/uL Hgb 8.3 L (14.0-18.0) g/dL Hct 26.3 L (40.0-54.0) % MCV 88.9 (80-100) fL MCH 28.0 (27.0-34.0) pg MCHC 31.6 L (33.0-35.0) g/dL Plt Count 149 L D (150-450) 10^3/uL Neut % (Auto) 94.7 H (42.2-75.2) % Lymph % (Auto) 1.6 L (20.5-50.1) % [place] % (Auto) 3.3 (2-8) % Eos % (Auto) 0.3 L (1.0-3.0) % Baso % (Auto) 0.1 (0.0-1.0) % Sodium 133 L (136-145) mmol/L Potassium 5.1 D (3.5-5.1) mmol/L Chloride 94 L (98-107) mmol/L Carbon Dioxide 27 (21-32) mmol/L Anion Gap 17.1 H (7-13) mEq/L BUN 46 H (7-18) mg/dL Creatinine 7.13 H* D (0.70-1.30) mg/dL Est Cr Clr Drug Dosing 10.10 mL/min Estimated GFR (MDRD) 8 BUN/Creatinine Ratio 6.5 (No establ ref range) Glucose 194 H (70-99) mg/dL Lactic Acid 1.9 (0.4-2.0) mmol/L Calcium 8.5 (8.5-10.1) mg/dL Total Bilirubin 0.6 (0.2-1.0) mg/dL AST 96 H (15-37) U/L ALT 99 H (16-63) U/L Alkaline Phosphatase 290 H (46-116) U/L Troponin I High Sens 799 H* (<=76) pg/mL B-Natriuretic Peptide 2960 H (0-100) pg/ml Total Protein 6.9 (6.4-8.2) g/dL Albumin 2.3 L (3.4-5.0) g/dL Globulin 4.6 Albumin/Globulin Ratio 0.50 Ethyl Alcohol < 3 (0) mg/dL SARS-CoV-2 RNA ([facility]) (NEGATIVE) 03/07/21 03/07/21 Range/Units 12:01 13:08 WBC (5.0-10.0) 10^3/uL RBC (4.6-6.2) 10^6/uL Hgb (14.0-18.0) g/dL Hct (40.0-54.0) % MCV (80-100) fL MCH (27.0-34.0) pg MCHC (33.0-35.0) g/dL Plt Count (150-450) 10^3/uL Neut % (Auto) (42.2-75.2) % Lymph % (Auto) (20.5-50.1) % [place] % (Auto) (2-8) % Eos % (Auto) (1.0-3.0) % Baso % (Auto) (0.0-1.0) % Sodium (136-145) mmol/L Potassium (3.5-5.1) mmol/L Chloride (98-107) mmol/L Carbon Dioxide (21-32) mmol/L Anion Gap (7-13) mEq/L BUN (7-18) mg/dL Creatinine (0.70-1.30) mg/dL Est Cr Clr Drug Dosing mL/min Estimated GFR (MDRD) BUN/Creatinine Ratio (No establ ref range) Glucose (70-99) mg/dL Lactic Acid (0.4-2.0) mmol/L Calcium (8.5-10.1) mg/dL Total Bilirubin (0.2-1.0) mg/dL AST (15-37) U/L ALT (16-63) U/L Alkaline Phosphatase (46-116) U/L Troponin I High Sens 793 H* (<=76) pg/mL B-Natriuretic Peptide (0-100) pg/ml Total Protein (6.4-8.2) g/dL Albumin (3.4-5.0) g/dL Globulin Albumin/Globulin Ratio Ethyl Alcohol (0) mg/dL SARS-CoV-2 RNA ([facility]) Negative (NEGATIVE) Meds: Medications Generic Name Dose Route Start Last Admin Trade Name Freq PRN Reason Stop Dose Admin Sodium Chloride 10 ml 03/07/21 10:54 03/07/21 12:15 Sodium Chloride 0.9% 10 Ml Syringe FLUSH 10 ml ASDIRECTED PRN Administration Keep Vein Open Discontinued Medications Generic Name Dose Route Start Last Admin Trade Name Freq PRN Reason Stop Dose Admin Albuterol/Ipratropium 3 ml 03/07/21 10:56 03/07/21 11:20 Albuterol/Ipratropium 3.0-0.5 Mg/3 Ml Neb Soln NEB 03/07/21 10:57 3 ml ONETIME ONE Administration Bumetanide 2 mg 03/07/21 13:17 03/07/21 13:31 Bumetanide 1 Mg/4 Ml Mdv IVPUSH 03/07/21 13:18 2 mg ONETIME ONE Administration Oxycodone/Acetaminophen 2 tab 03/07/21 11:07 03/07/21 12:15 Acetaminophen/Oxycodone 325-5 Mg Tab PO 03/07/21 11:08 2 tab ONETIME ONE Administration - Radiology Interpretation Free Text/Narrative:: Chest XR: prominent cardiac silhouette and gen. incresaed pulmonary vascular congestion with cephalization of flow since comparison film 02/04/21 per Rad. report. - Re-Assessments/Exams Free Text/Narrative Re-Assessment/Exam: 03/07/21 I attempted to transfer the pt to [facility] for dialysis, but no beds currently available. [facility] outpatient dialysis cannot take the pt for an early or partial run today either. No regional beds available for transfer. Plan to give the pt the Bumex he has not been taking, and admit the pt here to Dr. Reyes so that pt can be diuresed as much as possible with Bumex, and receive suppl. oxygen until either an [facility] bed is available, or until he can be discharged to receive outpatient dialysis if stable enough to do so. Departure - Departure Time of Disposition: 14:00 (admit to Dr. Reyes) Disposition: Admitted As Inpatient 67 Condition: Fair Clinical Impression: ESRD on hemodialysis, Noncompliance with medication regimen, History of colon cancer, History of lung cancer CHF (congestive heart failure) Qualifiers: Heart failure type: unspecified Heart failure chronicity: acute on chronic Qualified Code(s): I50.9 - Heart failure, unspecified Fluid overload Qualifiers: Hypervolemia type: other Qualified Code(s): E87.79 - Other fluid overload - Discharge Information *PRESCRIPTION DRUG MONITORING PROGRAM REVIEWED*: Not Applicable *COPY OF PRESCRIPTION DRUG MONITORING REPORT IN PATIENT ROBINA: Not Applicable Forms: ED Department Discharge Sepsis Event Note (ED) - Focused Exam Vital Signs: Vital Signs Temp Pulse Resp BP Pulse Ox 03/07/21 12:43 101/50 L 03/07/21 11:45 102/52 L 03/07/21 10:52 98.6 F 100 18 92/48 L 94 L - My Orders Last 24 Hours: My Active Orders 03/07/21 10:54 Sodium Chloride 0.9% [Saline Flush] 10 ml FLUSH ASDIRECTED PRN 03/07/21 10:55 EKG 12 Lead [EKG Documentation Completion] [RC] STAT Peripheral IV Insertion Adult [OM.PC] Stat 03/07/21 10:56 Peripheral IV Care [RC] . DIRECTED RT Aerosol Therapy [RC] ASDIRECTED - Assessment/Plan Last 24 Hours: My Active Orders 03/07/21 10:54 Sodium Chloride 0.9% [Saline Flush] 10 ml FLUSH ASDIRECTED PRN 03/07/21 10:55 EKG 12 Lead [EKG Documentation Completion] [RC] STAT Peripheral IV Insertion Adult [OM.PC] Stat 03/07/21 10:56 Peripheral IV Care [RC] . DIRECTED RT Aerosol Therapy [RC] ASDIRECTED
[2021-03-07] MEDS ORDERED: Albuterol/Ipratropium 3.0-0.5 MG/3 ML Neb Soln NEB ONE (10:56)
[2021-03-07] MEDS ORDERED: Acetaminophen/oxyCODONE 325-5 MG Tab PO ONE (11:07)
[2021-03-07 11:34] LABS: ANION GAP 17.1 mEq/L (7-13); CHLORIDE,CL 94 mmol/L (98-107); SODIUM,NA 133 mmol/L (136-145)
--- NOTE | 2021-03-07 11:53 | CR ---
EXAMINATION: Chest 2V SEX: Male AGE: 70 years CLINICAL HISTORY: 70-year-old dialysis patient complaining of shortness of breath (SOB). Comparison CXR's both and 01 March 2021. Interpretation: Abnormal. 1. *Prominent cardiac silhouette and relative generalized increased pulmonary vascular congestion with cephalization of flow since comparison film 04 February 2021 i.e. apparent fluid overload. No new pleural fluid accumulation. 2. Isolated 12 mm diameter nodule ZAYNAB unchanged. 3. No new lung mass or hilar lymphadenopathy. 4. No new alveolar consolidation, atelectasis/collapse, or peripheral "groundglass" interstitial lung densities. 5. No pneumothorax or pneumomediastinum (right supraclavicular central venous line unchanged since 01 March film.
[2021-03-07] MEDS ORDERED: Bumetanide 1 MG/4 ML MDV IVPUSH ONE (13:17)
[2021-03-07] MEDS ORDERED: Prochlorperazine 5 MG Tab PO PRN (15:53)
[2021-03-07] MEDS ORDERED: Non-Formulary Medication 1 Each (Midodrine [Midodrine] 5 MG Tablet) PO PRN (15:53)
[2021-03-07] MEDS ORDERED: Acetaminophen 325 MG Tab PO PRN (15:57)
[2021-03-07] MEDS ORDERED: Docusate Sodium 100 MG Cap PO PRN (15:57)
[2021-03-07] MEDS ORDERED: Ondansetron 4 MG/2 ML SDV IVPUSH PRN (15:57)
[2021-03-07] MEDS ORDERED: Aspirin 325 MG Tab PO SCH (16:00)
--- NOTE | 2021-03-07 16:14 | PCM.HP ---
H&P History of Present Illness - General Date of Service: 03/07/21 Admit Problem/Dx: Admission Diagnosis/Problem Admission Diagnosis/Problem Congestive heart failure Source of Information: Patient - History of Present Illness Initial Comments - Free Text/Narative: 70 yo with h/o cad, chf, esrd on HD ([place], , sat), last HD 03/06/21 h/o chronic pain, chronic continuous narcotic use (hydrocodone) Recently diagnosed with colon ca with lung mets, started on chemo tx with FolFOx, last treatment: last week Presented with increasing sob associated with on/off chest pain, midsternal, b/l sides, non radiating, lasting for minutes, resolving on its own or with hydrocodone also noted increased LE edema Bilateral Cheek Pain Score (Numeric/FACES): 7 - Related Data Allergies/Adverse Reactions: Allergies Allergy/AdvReac Type Severity Reaction Status Date / Time aspirin Allergy Severe Swollen Verified 03/07/21 14:28 Tongue chicken derived Allergy Rash Verified 03/07/21 14:28 egg Allergy Rash Verified 03/07/21 14:28 fish derived Allergy Rash Verified 03/07/21 14:28 ibuprofen Allergy Shortness Verified 03/07/21 14:28 of Breath Home Medications: Home Meds atorvaSTATin [Lipitor] 20 mg PO BEDTIME 12/02/15 [History] amLODIPine [Norvasc] 5 mg PO DAILY 01/10/16 [History] Vitamin B Comp W-C/FA/Zinc [Anamaria B Strong with C & Zinc Tb] 1 each PO DAILY 08/04/20 [History] Calcium Carbonate [Tums] 500 mg PO TIDMEALS 01/06/21 [History] Bumetanide [Bumex] 2 mg PO DAILY 03/07/21 [History] Calcium Acetate [PhosLo] 3,335 mg PO TIDMEALS 03/07/21 [History] Hydrocodone/Acetaminophen [HYDROcodone-Acetaminophen 5-325 MG] 1 each PO Q6HR PRN 03/07/21 [History] Metoprolol Tartrate [Lopressor] 50 mg PO BID 03/07/21 [History] Midodrine 10 mg PO ASDIRECTED 03/07/21 [History] Ondansetron [Zofran] 8 mg PO Q8H PRN 03/07/21 [History] Prochlorperazine [Compazine] 10 mg PO Q6H PRN 03/07/21 [History] lisinopriL [Prinivil] 5 mg PO DAILY 03/07/21 [History] Past Medical History HEENT History: Reports: Cataract, Hard of Hearing, Impaired Vision Cardiovascular History: Reports: Aneurysm, Heart Failure, High Cholesterol, Hypertension, DE, Stents Other Cardiovascular History: PATIENT REPORTS HTN CONTROLLED BY DIALYSIS NO FURTHER MEDICATIONS ADMIN Respiratory History: Reports: Other (See Below) Other Respiratory History: only sleeps 2 hours a day. Gastrointestinal History: Reports: Cholelithiasis Genitourinary History: Reports: Dialysis, Other (See Below) Other Genitourinary History: Has dialysis tomorrow. Musculoskeletal History: Reports: Arthritis, Back Pain, Chronic Neurological History: Reports: None Psychiatric History: Reports: None Endocrine/Metabolic History: Reports: Diabetes, Type II Hematologic History: Reports: Anemia Immunologic History: Reports: None Oncologic (Cancer) History: Reports: Colon, Lung Other Oncologic History: patient states was diagnosed with stage 4 cancer in both lungs and in his colon during his recent hospitalization for DE January 2021 Dermatologic History: Reports: None - Infectious Disease History Infectious Disease History: Reports: Chicken Pox, Measles, Mumps, TB - Past Surgical History HEENT Surgical History: Reports: Cataract Surgery, Naso-Sinus Surgery, Oral Surgery Cardiovascular Surgical History: Reports: Carotid Endarterectomy, Carotid Stents Other Cardiovascular Surgeries/Procedures: percutaneous cath, angioplasty Respiratory Surgical History: Reports: None GI Surgical History: Reports: Colonoscopy, EGD Male Surgical History: Reports: None Endocrine Surgical History: Reports: None Neurological Surgical History: Reports: None Musculoskeletal Surgical History: Reports: None Dermatological Surgical History: Reports: None Social & Family History - Family History Family Medical History: No Pertinent Family History Cardiac: Reports: Afib, Angina, CAD, Cardiomyopathy, Heart Failure, High Cholesterol, Hypertension, DE, Prior Cardiac Arrest Respiratory: Reports: COPD : Reports: Dialysis, Renal Disease/Insufficiency Musculoskeletal: Reports: Arthritis Neurological: Reports: CVA Endocrine/Metabolic: Reports: Diabetes, type II - Tobacco Use Tobacco Use Status *Q: Unknown Ever Used Tobacco - Caffeine Use Caffeine Use: Reports: None - Recreational Drug Use Recreational Drug Use Frequency: Patient Refuses To Answer - Living Situation & Occupation Living situation: Reports: Occupation: Retired H&P Review of Systems - Review of Systems: Review Of Systems: See Below General: Reports: Malaise, Weakness. Denies: Fever, Chills Pulmonary: Reports: Shortness of Breath. Denies: Wheezing Cardiovascular: Reports: Chest Pain, Edema Gastrointestinal: Reports: Nausea. Denies: Abdominal Pain Genitourinary: Denies: Dysuria Psychiatric: Denies: Confusion Exam - Exam Exam: See Below - Vital Signs Vital Signs: Last Vital Signs Temp 97.1 F 03/07/21 14:26 Pulse 82 03/07/21 15:28 Resp 20 03/07/21 14:26 BP 90/31 L 03/07/21 15:28 Pulse Ox 99 03/07/21 14:26 Weight: 206 lb - Exam Quality Assessment: Supplemental Oxygen General: Alert, Oriented Neck: Supple Lungs: Normal Respiratory Effort, Decreased Breath Sounds, Rhonchi Cardiovascular: Regular Rate, Regular Rhythm GI/Abdominal Exam: Normal Bowel Sounds, Soft, Non-Tender Extremities: Pedal Edema (2+ pitting, b/l) Neuro Extensive - Mental Status: Alert, Oriented x3, Normal Mood/Affect Psychiatric: Alert, Normal Affect, Normal Mood - Patient Data Lab Results Last 24 hrs: Laboratory Results - last 24 hr 03/07/21 03/07/21 03/07/21 Range/Units 11:06 11:06 11:06 WBC 9.1 (5.0-10.0) 10^3/uL RBC 2.96 L (4.6-6.2) 10^6/uL Hgb 8.3 L (14.0-18.0) g/dL Hct 26.3 L (40.0-54.0) % MCV 88.9 (80-100) fL MCH 28.0 (27.0-34.0) pg MCHC 31.6 L (33.0-35.0) g/dL Plt Count 149 L D (150-450) 10^3/uL Neut % (Auto) 94.7 H (42.2-75.2) % Lymph % (Auto) 1.6 L (20.5-50.1) % [place] % (Auto) 3.3 (2-8) % Eos % (Auto) 0.3 L (1.0-3.0) % Baso % (Auto) 0.1 (0.0-1.0) % Sodium 133 L (136-145) mmol/L Potassium 5.1 D (3.5-5.1) mmol/L Chloride 94 L (98-107) mmol/L Carbon Dioxide 27 (21-32) mmol/L Anion Gap 17.1 H (7-13) mEq/L BUN 46 H (7-18) mg/dL Creatinine 7.13 H* D (0.70-1.30) mg/dL Est Cr Clr Drug Dosing 10.10 mL/min Estimated GFR (MDRD) 8 BUN/Creatinine Ratio 6.5 (No establ ref range) Glucose 194 H (70-99) mg/dL Lactic Acid 1.9 (0.4-2.0) mmol/L Calcium 8.5 (8.5-10.1) mg/dL Total Bilirubin 0.6 (0.2-1.0) mg/dL AST 96 H (15-37) U/L ALT 99 H (16-63) U/L Alkaline Phosphatase 290 H (46-116) U/L Troponin I High Sens 799 H* (<=76) pg/mL B-Natriuretic Peptide 2960 H (0-100) pg/ml Total Protein 6.9 (6.4-8.2) g/dL Albumin 2.3 L (3.4-5.0) g/dL Globulin 4.6 Albumin/Globulin Ratio 0.50 Ethyl Alcohol < 3 (0) mg/dL SARS-CoV-2 RNA ([facility]) (NEGATIVE) 03/07/21 03/07/21 Range/Units 12:01 13:08 WBC (5.0-10.0) 10^3/uL RBC (4.6-6.2) 10^6/uL Hgb (14.0-18.0) g/dL Hct (40.0-54.0) % MCV (80-100) fL MCH (27.0-34.0) pg MCHC (33.0-35.0) g/dL Plt Count (150-450) 10^3/uL Neut % (Auto) (42.2-75.2) % Lymph % (Auto) (20.5-50.1) % [place] % (Auto) (2-8) % Eos % (Auto) (1.0-3.0) % Baso % (Auto) (0.0-1.0) % Sodium (136-145) mmol/L Potassium (3.5-5.1) mmol/L Chloride (98-107) mmol/L Carbon Dioxide (21-32) mmol/L Anion Gap (7-13) mEq/L BUN (7-18) mg/dL Creatinine (0.70-1.30) mg/dL Est Cr Clr Drug Dosing mL/min Estimated GFR (MDRD) BUN/Creatinine Ratio (No establ ref range) Glucose (70-99) mg/dL Lactic Acid (0.4-2.0) mmol/L Calcium (8.5-10.1) mg/dL Total Bilirubin (0.2-1.0) mg/dL AST (15-37) U/L ALT (16-63) U/L Alkaline Phosphatase (46-116) U/L Troponin I High Sens 793 H* (<=76) pg/mL B-Natriuretic Peptide (0-100) pg/ml Total Protein (6.4-8.2) g/dL Albumin (3.4-5.0) g/dL Globulin Albumin/Globulin Ratio Ethyl Alcohol (0) mg/dL SARS-CoV-2 RNA ([facility]) Negative (NEGATIVE) Result Diagrams: 03/07/21 11:06 03/07/21 11:06 - Problem List (1) CHF (congestive heart failure) SNOMED Code(s): 47291923 ICD Code: I50.9 - HEART FAILURE, UNSPECIFIED Status: Acute Current Visit: Yes Qualifiers: Heart failure type: unspecified Heart failure chronicity: acute on chronic Qualified Code(s): I50.9 - Heart failure, unspecified (2) ESRD on hemodialysis SNOMED Code(s): 954599551 ICD Code: N18.6 - END STAGE RENAL DISEASE; Z99.2 - DEPENDENCE ON RENAL DIALYSIS Status: Acute Current Visit: Yes (3) Fluid overload SNOMED Code(s): 94150459 ICD Code: E87.70 - FLUID OVERLOAD, UNSPECIFIED Status: Acute Current Visit: Yes Qualifiers: Hypervolemia type: other Qualified Code(s): E87.79 - Other fluid overload (4) History of colon cancer SNOMED Code(s): 025445807 ICD Code: Z85.038 - PERSONAL HISTORY OF MALIGNANT NEOPLASM OF LARGE INTESTINE Status: Acute Current Visit: Yes (5) Acute dyspnea SNOMED Code(s): 101802062, 916372961 ICD Code: R06.00 - DYSPNEA, UNSPECIFIED Status: Acute Current Visit: No (6) Dialysis patient SNOMED Code(s): 462171172 ICD Code: Z99.2 - DEPENDENCE ON RENAL DIALYSIS Status: Acute Current Visit: No Problem List Initiated/Reviewed/Updated: Yes Orders Last 24hrs: Active Orders 24 hr Category Date Time Status Admission Diagnosis [ADT] Routine ADT 03/07/21 14:01 Ordered Patient Status [ADT] Routine ADT 03/07/21 14:01 Active Antiembolic Devices [RC] PER UNIT ROUTINE Care 03/07/21 16:01 Ordered EKG 12 Lead [EKG Documentation Completion] [RC] STAT Care 03/07/21 10:55 Active Oxygen Therapy [RC] PRN Care 03/07/21 15:57 Ordered Peripheral IV Care [RC] . DIRECTED Care 03/07/21 10:56 Active RT Aerosol Therapy [RC] ASDIRECTED Care 03/07/21 10:56 Active Telemetry Monitoring [Cardiac Monitoring] [RC] . Care 03/07/21 15:41 Active DIRECTED Up With Assistance [RC] ASDIRECTED Care 03/07/21 15:57 Ordered VTE/DVT Education [RC] PER UNIT ROUTINE Care 03/07/21 15:57 Ordered Vital Signs [RC] Q4H Care 03/07/21 15:57 Ordered OT Evaluation and Treatment [CONS] Routine Cons 03/07/21 15:33 Active PT Evaluation and Treatment [CONS] Routine Cons 03/07/21 15:33 Active 2 Gram Sodium Diet [DIET] Diet 03/07/21 Dinner Ordered B-TYPE NATRIURETIC PEPTIDE,BNP [CHEM] AM Lab 03/09/21 05:11 Ordered BASIC METABOLIC PANEL,BMP [CHEM] AM Lab 03/08/21 05:15 Ordered CBC WITH AUTO DIFF [HEME] AM Lab 03/08/21 05:15 Ordered TROPONIN I HIGH SENSITIVITY [CHEM] AM Lab 03/08/21 05:11 Ordered Acetaminophen [TylenoL] Med 03/07/21 15:57 Ordered 650 mg PO Q4H PRN Acetaminophen/HYDROcodone [Dazey 325-5 MG] Med 03/07/21 15:53 Ordered 1 each PO Q6HR PRN Aspirin Med 03/07/21 16:00 Ordered 325 mg PO WITHBREAKFAST Calcium Acetate [PhosLo] Med 03/07/21 17:00 Ordered 3,335 mg PO TIDMEALS Calcium Carbonate [Tums] Med 03/07/21 17:00 Ordered 500 mg PO TIDMEALS Docusate Sodium [Colace] Med 03/07/21 15:57 Ordered 100 mg PO BID PRN Heparin Sodium Med 03/07/21 22:00 Ordered 5,000 units SUBCUT Q8HR Midodrine [Midodrine] Med 03/07/21 16:05 Ordered 5 mg PO Q6H PRN Ondansetron Med 03/07/21 15:53 Ordered 8 mg PO Q8H PRN Ondansetron [Zofran] Med 03/07/21 15:57 Ordered 4 mg IVPUSH Q4H PRN Prochlorperazine [Compazine] Med 03/07/21 15:53 Ordered 10 mg PO Q6H PRN Sodium Chloride 0.9% [Saline Flush] Med 03/07/21 15:57 Ordered 10 ml FLUSH ASDIRECTED PRN Temazepam [Restoril] Med 03/07/21 15:57 Ordered 15 mg PO BEDTIME PRN Vitamin B Comp W-C/FA/Zinc [Anamaria B Strong with C & Zinc Med 03/08/21 09:00 Ordered Tb] 1 each PO DAILY atorvaSTATin [Lipitor] Med 03/07/21 21:00 Ordered 20 mg PO BEDTIME Antiembolic Hose [OM.PC] Per Unit Routine Oth 03/07/21 16:00 Ordered Peripheral IV Insertion Adult [OM.PC] Stat Oth 03/07/21 10:55 Ordered Saline Lock Insert [OM.PC] Routine Oth 03/07/21 15:57 Ordered Resuscitation Status Routine Resus Stat 03/07/21 15:57 Ordered Medication Orders Acetaminophen (Acetaminophen 325 Mg Tab) 650 mg PO Q4H PRN PRN Reason: Pain (Mild 1-3)/fever Hydrocodone Bitart/Acetaminophen (Acetaminophen/Hydrocodone 325-5 Mg Tab) tab PO Q6HR PRN PRN Reason: Pain Aspirin (Aspirin 325 Mg Tab) 325 mg PO WITHBREAKFAST DONAVAN Atorvastatin Calcium (Atorvastatin 20 Mg Tab) 20 mg PO BEDTIME DONAVAN Calcium Carbonate/Glycine (Calcium Carbonate 500 Mg Tab.Chew) 500 mg PO TIDMEALS DONAVAN Docusate Sodium (Docusate Sodium 100 Mg Cap) 100 mg PO BID PRN PRN Reason: Constipation Heparin Sodium (Porcine) (Heparin Sodium 5,000 Units/Ml Vial) 5,000 units SUBCUT Q8HR DONAVAN Non-Formulary Medication (Calcium Acetate [Phoslo]) 3,335 mg PO TIDMEALS DONAVAN Non-Formulary Medication (Ondansetron) 8 mg PO Q8H PRN PRN Reason: Nausea/Vomiting Non-Formulary Medication (Vitamin B Comp W-C/Fa/Zinc [Anamaria B Strong With C & Zinc Tb]) 1 each PO DAILY [facility]AN Non-Formulary Medication (Midodrine [Midodrine]) 5 mg PO Q6H PRN PRN Reason: sbp<90 Ondansetron HCl (Ondansetron 4 Mg/2 Ml Sdv) 4 mg IVPUSH Q4H PRN PRN Reason: Nausea/Vomiting Prochlorperazine Maleate (Prochlorperazine 5 Mg Tab) 10 mg PO Q6H PRN PRN Reason: Nausea/Vomiting Sodium Chloride (Sodium Chloride 0.9% 10 Ml Syringe) 10 ml FLUSH ASDIRECTED PRN PRN Reason: Keep Vein Open Temazepam (Temazepam 15 Mg Cap) 15 mg PO BEDTIME PRN PRN Reason: Sleep Assessment/Plan Comment:: 70 yo with h/o cad, chf, esrd on HD (, , sat), last HD 03/06/21 h/o chronic pain, chronic continuous narcotic use Recently diagnosed with colon ca with lung mets, started on chemo tx with FolFOx, last treatment: last week Presented with increasing sob associated with on/off chest pain, midsternal, b/l sides, non radiating, lasting for minutes, resolving on its own or with hydrocodone Sob with fluid overload due to ESRD on HD Esrd, hyponatremia on HD Dialysis bed is not available on waiting list for [facility] Will give Lasix 80 mg q8h Will arrange HD as soon as possible I have called [facility] - no bed available called dr. Perry from nephrlology - will try to run him in HD unit in [place] - this is not a standard procedure but due to lack of ability to transfer due to nursing shortage and covid epidemic will try to arrange something I think his need for HD is more improtant than any other treatment needs missing HD tomorrow would make his condition worse than any other treatment that we can provide Acute non st mi likely type II due to fluid overload With mild troponin elevation only (especially in the setting of ESRD) Will monitor on tele Repeat troponin Treat with asa Hold BBlocker, carolyn re: hypotension Cont statin f/up with echo as out pt Chronic hypotension Will add scheduled midodrine Stop Norvasc Hold carolyn, metoprolol for now Chronic pain Cont hydrocodone prn Anemia Likely due to ESRD Will monitor Dvt prophylaxis Sq heparin Code status Patient requested dnr status
[2021-03-07] MEDS ORDERED: Ondansetron 4 MG Tab.DIS PO PRN (16:31)
[2021-03-07] MEDS: Calcium Carbonate 500 MG Tab.Chew PO SCH (16:45)
[2021-03-07] MEDS: CALCIUM ACETATE 667 MG PO SCH (16:59)
[2021-03-07] MEDS ORDERED: Temazepam 15 MG Cap PO PRN (21:00)
[2021-03-07] MEDS: atorvaSTATin 20 MG Tab PO SCH (21:33)
[2021-03-07] MEDS: Heparin Sodium 5,000 Units/ML Vial SUBCUT SCH (21:33)
[2021-03-07] MEDS: Acetaminophen/HYDROcodone 325-5 MG Tab PO PRN (21:38)
[2021-03-07] MEDS ORDERED: Metoprolol Tartrate 50 MG Tab PO ONE (22:04)
--- NOTE | 2021-03-08 00:17 | PCM.DCSUM1 ---
Discharge Summary - Hospital Course Free Text/Narrative:: presented with sob noted to have fluid overload with leg edema, pulmonary edema treated with diuretics supplemented oxygen noted low grade temp - Bc obtained , ucx obtained - Abx not started yet discharge for HD appointment plan to readmit and continue treatment after HD Diagnosis: Stroke: No - Discharge Data Discharge Date: 03/08/21 Discharge Disposition: Home, Self-Care 01 Condition: Good - Referral to Home Health Primary Care Physician: PCP None - Discharge Diagnosis/Problem(s) (1) CHF (congestive heart failure) SNOMED Code(s): 24886033 ICD Code: I50.9 - HEART FAILURE, UNSPECIFIED Status: Acute Current Visit: Yes Qualifiers: Heart failure type: unspecified Heart failure chronicity: acute on chronic Qualified Code(s): I50.9 - Heart failure, unspecified (2) ESRD on hemodialysis SNOMED Code(s): 802859514 ICD Code: N18.6 - END STAGE RENAL DISEASE; Z99.2 - DEPENDENCE ON RENAL DIALYSIS Status: Acute Current Visit: Yes (3) Fluid overload SNOMED Code(s): 30160501 ICD Code: E87.70 - FLUID OVERLOAD, UNSPECIFIED Status: Acute Current V isit: Yes Qualifiers: Hypervolemia type: other Qualified Code(s): E87.79 - Other fluid overload (4) History of colon cancer SNOMED Code(s): 565397908 ICD Code: Z85.038 - PERSONAL HISTORY OF MALIGNANT NEOPLASM OF LARGE INTESTINE Status: Acute Current Visit: Yes (5) Acute dyspnea SNOMED Code(s): 760038896, 871891303 ICD Code: R06.00 - DYSPNEA, UNSPECIFIED Status: Acute Current Visit: No (6) Dialysis patient SNOMED Code(s): 484000392 ICD Code: Z99.2 - DEPENDENCE ON RENAL DIALYSIS Status: Acute Current Visit: No - Patient Summary/Data Consults: Consultations 03/07/21 15:33 OT Evaluation and Treatment [CONS] Routine PT Evaluation and Treatment [CONS] Routine - Discharge Plan *PRESCRIPTION DRUG MONITORING PROGRAM REVIEWED*: Not Applicable *COPY OF PRESCRIPTION DRUG MONITORING REPORT IN PATIENT ROBINA: Not Applicable Home Medications: Home Meds atorvaSTATin [Lipitor] 20 mg PO BEDTIME 12/02/15 [History] amLODIPine [Norvasc] 5 mg PO DAILY 01/10/16 [History] Vitamin B Comp W-C/FA/Zinc [Anamaria B Strong with C & Zinc Tb] 1 each PO DAILY 08/04/20 [History] Calcium Carbonate [Tums] 500 mg PO TIDMEALS 01/06/21 [History] Bumetanide [Bumex] 2 mg PO DAILY 03/07/21 [History] Calcium Acetate [PhosLo] 3,335 mg PO TIDMEALS 03/07/21 [History] Calcium Acetate [PhosLo] 667 mg PO .WITH SNACKS 03/07/21 [History] Metoprolol Tartrate [Lopressor] 50 mg PO BID 03/07/21 [History] Midodrine 10 mg PO ASDIRECTED 03/07/21 [History] Ondansetron [Zofran] 8 mg PO Q8H PRN 03/07/21 [History] Prochlorperazine [Compazine] 10 mg PO Q6H PRN 03/07/21 [History] lisinopriL [Lisinopril] 5 mg PO DAILY 03/07/21 [History] Oxygen Therapy Mode: Nasal Cannula - Discharge Summary/Plan Comment DC Time >30 min.: No Total # of Minutes for Discharge Time: 15 min dicharge to out pt HD since no facility is available to do inpatient HD and continued medical therapy - General Info Date of Service: 03/08/21 - Review of Systems Pulmonary: Reports: Shortness of Breath Cardiovascular: Reports: Edema - Patient Data Vitals - Most Recent: Last Vital Signs Temp 99.3 F 03/07/21 23:40 Pulse 142 H 03/07/21 23:40 Resp 20 03/07/21 23:40 BP 160/89 H 03/07/21 23:40 Pulse Ox 98 03/07/21 23:40 Weight - Most Recent: 206 lb I&O - Last 24 hours: Intake & Output 03/07/21 03/07/21 03/08/21 14:59 22:59 06:59 Intake Total 400 Balance 400 Lab Results - Last 24 hrs: Laboratory Results - last 24 hr 03/07/21 03/07/21 03/07/21 Range/Units 11:06 11:06 11:06 WBC 9.1 (5.0-10.0) 10^3/uL RBC 2.96 L (4.6-6.2) 10^6/uL Hgb 8.3 L (14.0-18.0) g/dL Hct 26.3 L (40.0-54.0) % MCV 88.9 (80-100) fL MCH 28.0 (27.0-34.0) pg MCHC 31.6 L (33.0-35.0) g/dL Plt Count 149 L D (150-450) 10^3/uL Neut % (Auto) 94.7 H (42.2-75.2) % Lymph % (Auto) 1.6 L (20.5-50.1) % [place] % (Auto) 3.3 (2-8) % Eos % (Auto) 0.3 L (1.0-3.0) % Baso % (Auto) 0.1 (0.0-1.0) % Sodium 133 L (136-145) mmol/L Potassium 5.1 D (3.5-5.1) mmol/L Chloride 94 L (98-107) mmol/L Carbon Dioxide 27 (21-32) mmol/L Anion Gap 17.1 H (7-13) mEq/L BUN 46 H (7-18) mg/dL Creatinine 7.13 H* D (0.70-1.30) mg/dL Est Cr Clr Drug Dosing 10.10 mL/min Estimated GFR (MDRD) 8 BUN/Creatinine Ratio 6.5 (No establ ref range) Glucose 194 H (70-99) mg/dL Lactic Acid 1.9 (0.4-2.0) mmol/L Calcium 8.5 (8.5-10.1) mg/dL Total Bilirubin 0.6 (0.2-1.0) mg/dL AST 96 H (15-37) U/L ALT 99 H (16-63) U/L Alkaline Phosphatase 290 H (46-116) U/L Troponin I High Sens 799 H* (<=76) pg/mL B-Natriuretic Peptide 2960 H (0-100) pg/ml Total Protein 6.9 (6.4-8.2) g/dL Albumin 2.3 L (3.4-5.0) g/dL Globulin 4.6 Albumin/Globulin Ratio 0.50 Ethyl Alcohol < 3 (0) mg/dL SARS-CoV-2 RNA ([facility]) (NEGATIVE) 03/07/21 03/07/21 Range/Units 12:01 13:08 WBC (5.0-10.0) 10^3/uL RBC (4.6-6.2) 10^6/uL Hgb (14.0-18.0) g/dL Hct (40.0-54.0) % MCV (80-100) fL MCH (27.0-34.0) pg MCHC (33.0-35.0) g/dL Plt Count (150-450) 10^3/uL Neut % (Auto) (42.2-75.2) % Lymph % (Auto) (20.5-50.1) % [place] % (Auto) (2-8) % Eos % (Auto) (1.0-3.0) % Baso % (Auto) (0.0-1.0) % Sodium (136-145) mmol/L Potassium (3.5-5.1) mmol/L Chloride (98-107) mmol/L Carbon Dioxide (21-32) mmol/L Anion Gap (7-13) mEq/L BUN (7-18) mg/dL Creatinine (0.70-1.30) mg/dL Est Cr Clr Drug Dosing mL/min Estimated GFR (MDRD) BUN/Creatinine Ratio (No establ ref range) Glucose (70-99) mg/dL Lactic Acid (0.4-2.0) mmol/L Calcium (8.5-10.1) mg/dL Total Bilirubin (0.2-1.0) mg/dL AST (15-37) U/L ALT (16-63) U/L Alkaline Phosphatase (46-116) U/L Troponin I High Sens 793 H* (<=76) pg/mL B-Natriuretic Peptide (0-100) pg/ml Total Protein (6.4-8.2) g/dL Albumin (3.4-5.0) g/dL Globulin Albumin/Globulin Ratio Ethyl Alcohol (0) mg/dL SARS-CoV-2 RNA ([facility]) Negative (NEGATIVE) Med Orders - Current: Current Medications Acetaminophen (Acetaminophen 325 Mg Tab) 650 mg PO Q4H PRN PRN Reason: Pain (Mild 1-3)/fever Hydrocodone Bitart/Acetaminophen (Acetaminophen/Hydrocodone 325-5 Mg Tab) 1 tab PO Q6HR PRN PRN Reason: Pain (moderate 4-6) Last Admin: 03/07/21 21:38 Dose: 1 tab Documented by: Atorvastatin Calcium (Atorvastatin 20 Mg Tab) 20 mg PO BEDTIME [facility] Last Admin: 03/07/21 21:33 Dose: 20 mg Documented by: Calcium Carbonate/Glycine (Calcium Carbonate 500 Mg Tab.Chew) 500 mg PO TIDMEALS [facility] Last Admin: 03/07/21 16:45 Dose: 500 mg Documented by: Docusate Sodium (Docusate Sodium 100 Mg Cap) 100 mg PO BID PRN PRN Reason: Constipation Heparin Sodium (Porcine) (Heparin Sodium 5,000 Units/Ml Vial) 5,000 units SUBCUT Q8HR [facility] Last Admin: 03/07/21 21:33 Dose: 5,000 units Documented by: Midodrine (Midodrine 2.5 Mg Tab) 5 mg PO Q6H PRN PRN Reason: sbp<90 Calcium Acetate [ (Phoslo] 667 Mg Cap) 0 mg PO TIDMEALS [facility] Last Admin: 03/07/21 16:59 Dose: 3,335 mg Documented by: Calcium Acetate [ Phoslo] 667 Mg Cap * *Non Form 0 mg PO DAILY@1000,1400 [facility] Ondansetron HCl (Ondansetron 4 Mg Tab.Dis) 8 mg PO Q8H PRN PRN Reason: Nausea/Vomiting Ondansetron HCl (Ondansetron 4 Mg/2 Ml Sdv) 4 mg IVPUSH Q4H PRN PRN Reason: Nausea/Vomiting Prochlorperazine Maleate (Prochlorperazine 5 Mg Tab) 10 mg PO Q6H PRN PRN Reason: Nausea/Vomiting, use 2nd Sodium Chloride (Sodium Chloride 0.9% 10 Ml Syringe) 10 ml FLUSH ASDIRECTED PRN PRN Reason: Keep Vein Open Temazepam (Temazepam 15 Mg Cap) 15 mg PO BEDTIME PRN PRN Reason: Sleep Last Admin: 03/07/21 21:38 Dose: 15 mg Documented by: Vitamin B Complex (Vitamin B Complex Cap) 1 each PO DAILY [facility] Discontinued Medications Albuterol/Ipratropium (Albuterol/Ipratropium 3.0-0.5 Mg/3 Ml Neb Soln) 3 ml NEB ONETIME ONE Stop: 11/02/21 10:57 Last Admin: 03/07/21 11:20 Dose: 3 ml Documented by: Aspirin (Aspirin 325 Mg Tab) 325 mg PO WITHBREAKFAST DONAVAN Last Admin: 03/07/21 18:15 Dose: Not Given Documented by: Bumetanide (Bumetanide 1 Mg/4 Ml Mdv) 2 mg IVPUSH ONETIME ONE Stop: 03/07/21 13:18 Last Admin: 03/07/21 13:31 Dose: 2 mg Documented by: Metoprolol Tartrate (Metoprolol Tartrate 50 Mg Tab) 50 mg PO ONETIME ONE Stop: 03/07/21 22:05 Last Admin: 03/07/21 22:20 Dose: 50 mg Documented by: Non-Formulary Medication (Midodrine [Midodrine]) 10 mg PO Q6H PRN PRN Reason: sbp<90 Oxycodone/Acetaminophen (Acetaminophen/Oxycodone 325-5 Mg Tab) 2 tab PO ONETIME ONE Stop: 03/07/21 11:08 Last Admin: 03/07/21 12:15 Dose: 2 tab Documented by: Sodium Chloride (Sodium Chloride 0.9% 10 Ml Syringe) 10 ml FLUSH ASDIRECTED PRN PRN Reason: Keep Vein Open Last Admin: 03/07/21 12:15 Dose: 10 ml Documented by: - Exam General: Reports: Alert, Oriented Lungs: Reports: Decreased Breath Sounds, Rhonchi Cardiovascular: Reports: Regular Rate, Regular Rhythm Extremities: Pedal Edema
[2021-03-08 03:33] LABS: ANION GAP 18.1 mEq/L (7-13)
[2021-03-08] MEDS: Midodrine 2.5 MG Tab PO PRN ×2 (04:16→08:25)
[2021-03-08] MEDS ORDERED: Sodium Chloride 0.9% 500 ML IV SCH (04:30)
[2021-03-08] MEDS: Piperacillin/Tazobactam 3.375 GM in Sodium Chloride 0.9% 100 ML IV SCH ×2 (04:45→15:38)
--- NOTE | 2021-03-08 05:17 | PCM.SN.2 ---
- Free Text/Narrative Note: this morning the patient is noted to be hypotensive, lethargic BP 79/38 86%RA hr 88 rr: 24 with short apneic spells temp: low grade temp noted earlier on exam neuro: lethargic heart: reg lungs: decreased BS labs : troponin stable will not be able to transfer to out pt HD started 500 cc bolus but have to limit fluids re chf will transfer to ICU, start levophed check lactic acid, obtained Blood cx, check Ucx, ABG start edilia dunn called Carlos Cabello (Shannon kristi, [place], [place]),Fartun Guillen, [facility], Marquise Brown - none can accept Time Documentation
[2021-03-08] MEDS: Norepinephrine 4 MG in Dextrose 5% in Water 246 ML IV SCH ×4 (05:28→13:02)
[2021-03-08 06:08] LABS: BASE EXCESS ARTERIAL 0 mmol/L ((-2)-(+3)); BICARBONATE,ARTERIAL 24.6 mmol/L (22-26); O2 DELIVERY DEVICE NASAL CANNULA; O2 SATURATION ARTERIAL 97 % (95-100); PCO2 ARTERIAL 44 mmHg (35-45); PO2 ARTERIAL 98 mmHg (70-100)
[2021-03-08 06:10] LABS: ALLEN TEST PERFORMED
[2021-03-08] MEDS: Heparin Sodium 5,000 Units/ML Vial SUBCUT SCH ×3 (06:35→21:43)
--- NOTE | 2021-03-08 09:32 | CR ---
PROCEDURE INFORMATION: Exam: XR Chest Exam date and time: 03/08/2021 8:33 AM Age: 70 years old Clinical indication: Shortness of breath; Additional info: Increase o2 requirment, change in status TECHNIQUE: Imaging protocol: XR of the chest. Views: 1 view. COMPARISON: CR Chest 2V 03/07/2021 11:20 AM FINDINGS: Tubes, catheters and devices: Port-A-Cath right chest wall with tip in the superior vena cava. Lungs: Left upper lobe nodule. No significant change from prior study. Right lower lobe consolidation. Pleural spaces: Right pleural calcifications. Heart/Mediastinum: Cardiomegaly. Bones/joints: Unremarkable. IMPRESSION: 1. Cardiomegaly. 2. Left upper lobe lung nodule/mass. 3. Right lower lobe consolidation.
[2021-03-08] MEDS: Calcium Carbonate 500 MG Tab.Chew PO SCH ×3 (09:49→16:52)
[2021-03-08] MEDS: Vitamin B Complex Cap PO SCH (09:49)
[2021-03-08] MEDS: CALCIUM ACETATE 667 MG PO SCH ×3 (10:42→16:52)
[2021-03-08] MEDS: [UNRECOGNIZED DRUG - REMARK] PO SCH ×2 (13:15→14:51)
--- NOTE | 2021-03-08 14:12 | PCM.PN ---
- General Info Date of Service: 03/08/21 Admission Dx/Problem (Free Text): Admission Diagnosis/Problem Admission Diagnosis/Problem Congestive heart failure Subjective Update: 03/08/21 low grade temp last night became hypotensive and Dr Torres in and started levophed and titrated up an gave 500 cc fluid bolus. b.p hovering around 75-92 syst. had chest pain previous but no worsening last night . non exertional or positional and is coming and going since week before admission . trop 799 then 812 then 778 and 4th one pending. ekg shows st depression with isoelectric t wave in 2/3/avf and flipped t waves with st depression 1-2 mm v3 through v6. patient able to sleep since this am , damon better and levophed titrated down . to 6 currently with b.p 100-120 syst. creat 7.7a nd cannot dialyse sec. to heart failure and levophed but now concern about a non stemi mi although prev. ami showed massive elavations of trop 2300 range. hgn 8.8 and on o2 3 liters. Functional Status: Reports: Pain Controlled, Tolerating Diet, Urinating - Review of Systems General: Reports: Weakness, Fatigue Pulmonary: Reports: Shortness of Breath, Cough Cardiovascular: Reports: No Symptoms, Dyspnea on Exertion, Orthopnea, Edema Gastrointestinal: Reports: No Symptoms Genitourinary: Reports: No Symptoms Musculoskeletal: Reports: No Symptoms Skin: Reports: No Symptoms Neurological: Reports: No Symptoms Psychiatric: Reports: No Symptoms - Patient Data Vitals - Most Recent: Last Vital Signs Temp 36.6 C 03/08/21 10:43 Pulse 80 03/08/21 10:43 Resp 18 03/08/21 10:43 BP 125/56 L 03/08/21 10:45 Pulse Ox 94 L 03/08/21 10:43 Weight - Most Recent: 93.44 kg I&O - Last 24 Hours: Intake & Output 03/07/21 03/08/21 03/08/21 22:59 06:59 14:59 Intake Total 400 1250 Output Total 0 Balance 400 0 1250 Lab Results Last 24 Hours: Laboratory Results - last 24 hr 03/08/21 03/08/21 03/08/21 Range/Units 03:03 03:03 06:00 WBC 7.2 (5.0-10.0) 10^3/uL RBC 2.98 L (4.6-6.2) 10^6/uL Hgb 8.4 L (14.0-18.0) g/dL Hct 26.5 L (40.0-54.0) % MCV 88.9 (80-100) fL MCH 28.2 (27.0-34.0) pg MCHC 31.7 L (33.0-35.0) g/dL Plt Count 138 L (150-450) 10^3/uL Neut % (Auto) 92.6 H (42.2-75.2) % Lymph % (Auto) 2.5 L (20.5-50.1) % Gillespie % (Auto) 4.5 (2-8) % Eos % (Auto) 0.3 L (1.0-3.0) % Baso % (Auto) 0.1 (0.0-1.0) % ABG pH 7.37 (7.35-7.45) ABG pCO2 44 (35-45) mmHg ABG pO2 98 (70-100) mmHg ABG HCO3 24.6 (22-26) mmol/L ABG O2 Saturation 97 (95-100) % ABG Base Excess 0 ((-2)-(+3)) mmol/L Miguel Test Performed O2 Delivery Device Nasal cannula Sodium 132 L (136-145) mmol/L Potassium 5.1 (3.5-5.1) mmol/L Chloride 93 L (98-107) mmol/L Carbon Dioxide 26 (21-32) mmol/L Anion Gap 18.1 H (7-13) mEq/L BUN 57 H (7-18) mg/dL Creatinine 8.45 H* D (0.70-1.30) mg/dL Est Cr Clr Drug Dosing 8.52 mL/min Estimated GFR (MDRD) 6 Glucose 192 H (70-99) mg/dL Lactic Acid (0.4-2.0) mmol/L Calcium 8.3 L (8.5-10.1) mg/dL Troponin I High Sens 812 H* (<=76) pg/mL 03/08/21 Range/Units 10:30 WBC (5.0-10.0) 10^3/uL RBC (4.6-6.2) 10^6/uL Hgb (14.0-18.0) g/dL Hct (40.0-54.0) % MCV (80-100) fL MCH (27.0-34.0) pg MCHC (33.0-35.0) g/dL Plt Count (150-450) 10^3/uL Neut % (Auto) (42.2-75.2) % Lymph % (Auto) (20.5-50.1) % Gillespie % (Auto) (2-8) % Eos % (Auto) (1.0-3.0) % Baso % (Auto) (0.0-1.0) % ABG pH (7.35-7.45) ABG pCO2 (35-45) mmHg ABG pO2 (70-100) mmHg ABG HCO3 (22-26) mmol/L ABG O2 Saturation (95-100) % ABG Base Excess ((-2)-(+3)) mmol/L Miguel Test O2 Delivery Device Sodium (136-145) mmol/L Potassium (3.5-5.1) mmol/L Chloride (98-107) mmol/L Carbon Dioxide (21-32) mmol/L Anion Gap (7-13) mEq/L BUN (7-18) mg/dL Creatinine (0.70-1.30) mg/dL Est Cr Clr Drug Dosing mL/min Estimated GFR (MDRD) Glucose (70-99) mg/dL Lactic Acid 2.8 H* (0.4-2.0) mmol/L Calcium (8.5-10.1) mg/dL Troponin I High Sens (<=76) pg/mL Kasi Results Last 24 Hours: Microbiology 03/07/21 23:07 Aerobic Blood Culture - Preliminary Blood - Venous - Iv Start Anaerobic Blood Culture - Preliminary 03/07/21 23:12 Aerobic Blood Culture - Preliminary Blood - Venous - Lab Draw Anaerobic Blood Culture - Preliminary Med Orders - Current: Current Medications Acetaminophen (Acetaminophen 325 Mg Tab) 650 mg PO Q4H PRN PRN Reason: Pain (Mild 1-3)/fever Hydrocodone Bitart/Acetaminophen (Acetaminophen/Hydrocodone 325-5 Mg Tab) 1 tab PO Q6HR PRN PRN Reason: Pain (moderate 4-6) Last Admin: 03/07/21 21:38 Dose: 1 tab Documented by: Atorvastatin Calcium (Atorvastatin 20 Mg Tab) 20 mg PO BEDTIME [facility] Last Admin: 03/07/21 21:33 Dose: 20 mg Documented by: Calcium Carbonate/Glycine (Calcium Carbonate 500 Mg Tab.Chew) 500 mg PO TIDMEALS [facility] Last Admin: 03/08/21 13:00 Dose: 500 mg Documented by: Docusate Sodium (Docusate Sodium 100 Mg Cap) 100 mg PO BID PRN PRN Reason: Constipation Heparin Sodium (Porcine) (Heparin Sodium 5,000 Units/Ml Vial) 5,000 units SUBCUT Q8HR [facility] Last Admin: 03/08/21 13:05 Dose: 5,000 units Documented by: Piperacillin Sod/Tazobactam (Sod 3.375 gm/ Sodium Chloride) 100 mls @ 200 m ls/hr IV Q12H [facility] Last Admin: 03/08/21 04:45 Dose: 200 mls/hr Documented by: Norepinephrine Bitartrate 4 mg (/ Dextrose/Water) 250 mls @ 7.5 mls/hr IV TITRATE [facility]; Protocol Last Titration: 03/08/21 13:16 Dose: 6 mcg/min, 22.5 mls/hr Documented by: Midodrine (Midodrine 2.5 Mg Tab) 5 mg PO Q6H PRN PRN Reason: sbp<90 Last Admin: 03/08/21 08:25 Dose: 5 mg Documented by: Calcium Acetate [ (Phoslo] 667 Mg Cap) 0 mg PO TIDMEALS [facility] Last Admin: 03/08/21 13:14 Dose: 3,335 mg Documented by: Calcium Acetate [ Phoslo] 667 Mg Cap * *Non Form 0 mg PO DAILY@1000,1400 [facility] Last Admin: 03/08/21 13:15 Dose: Not Given Documented by: Ondansetron HCl (Ondansetron 4 Mg Tab.Dis) 8 mg PO Q8H PRN PRN Reason: Nausea/Vomiting Ondansetron HCl (Ondansetron 4 Mg/2 Ml Sdv) 4 mg IVPUSH Q4H PRN PRN Reason: Nausea/Vomiting Prochlorperazine Maleate (Prochlorperazine 5 Mg Tab) 10 mg PO Q6H PRN PRN Reason: Nausea/Vomiting, use 2nd Sodium Chloride (Sodium Chloride 0.9% 10 Ml Syringe) 10 ml FLUSH ASDIRECTED PRN PRN Reason: Keep Vein Open Temazepam (Temazepam 15 Mg Cap) 15 mg PO BEDTIME PRN PRN Reason: Sleep Last Admin: 03/07/21 21:38 Dose: 15 mg Documented by: Vancomycin HCl (Pharmacy To Dose - Vancomycin) 1 dose .XX ASDIRECTED DONAVAN Vitamin B Complex (Vitamin B Complex Cap) 1 each PO DAILY [facility] Last Admin: 03/08/21 09:49 Dose: 1 each Documented by: Discontinued Medications Albuterol/Ipratropium (Albuterol/Ipratropium 3.0-0.5 Mg/3 Ml Neb Soln) 3 ml NEB ONETIME ONE Stop: 03/07/21 10:57 Last Admin: 03/07/21 11:20 Dose: 3 ml Documented by: Aspirin (Aspirin 325 Mg Tab) 325 mg PO WITHBREAKFAST [facility] Last Admin: 03/07/21 18:15 Dose: Not Given Documented by: Bumetanide (Bumetanide 1 Mg/4 Ml Mdv) 2 mg IVPUSH ONETIME ONE Stop: 03/07/21 13:18 Last Admin: 03/07/21 13:31 Dose: 2 mg Documented by: Sodium Chloride (Normal Saline) 500 mls @ 999 mls/hr IV .BOLUS [facility] Last Admin: 03/08/21 04:28 Dose: 999 mls/hr Documented by: Vancomycin HCl 1.25 gm/ Sodium (Chloride) 250 mls @ 166.667 mls/hr IV ONETIME ONE Stop: 03/08/21 06:29 Last Admin: 03/08/21 05:16 Dose: 166.667 mls/hr Documented by: Metoprolol Tartrate (Metoprolol Tartrate 50 Mg Tab) 50 mg PO ONETIME ONE Stop: 03/07/21 22:05 Last Admin: 03/07/21 22:20 Dose: 50 mg Documented by: Non-Formulary Medication (Midodrine [Midodrine]) 10 mg PO Q6H PRN PRN Reason: sbp<90 Oxycodone/Acetaminophen (Acetaminophen/Oxycodone 325-5 Mg Tab) 2 tab PO ONETIME ONE Stop: 03/07/21 11:08 Last Admin: 03/07/21 12:15 Dose: 2 tab Documented by: Sodium Chloride (Sodium Chloride 0.9% 10 Ml Syringe) 10 ml FLUSH ASDIRECTED PRN PRN Reason: Keep Vein Open Last Admin: 03/07/21 12:15 Dose: 10 ml Documented by: - Exam General: Alert, Oriented HEENT: Pupils Equal, Pupils Reactive, EOMI, Mucous Membr. Moist/[place] Neck: Supple Lungs: Clear to Auscultation, Normal Respiratory Effort Cardiovascular: Regular Rate, Regular Rhythm, No Murmurs GI/Abdominal Exam: Normal Bowel Sounds, Soft, Non-Tender, No Organomegaly, No Distention, No Abnormal Bruit, No Mass, Pelvis Stable (Male) Exam: No Hernia, Normal Inspection, Normal Prostate, Circumcised, Deferred Back Exam: Normal Inspection, Full Range of Motion Extremities: Normal Inspection, Normal Range of Motion, Non-Tender, No Pedal Edema, Normal Capillary Refill Skin: Warm, Dry, Intact Wound/Incisions: Healing Well Neurological: No New Focal Deficit Psy/Mental Status: Alert, Normal Affect, Normal Mood #1 Interpretation EKG Date: 03/08/21 Rhythm: NSR [place]: Normal P-Wave: Present QRS: Other (poor r wave progerssion) ST-T: Depressed QT: Normal Comparison: Change From Previous EKG (slight change form admision ekg more st dpression with flipped t waves v2-v6. st depression in inferior leads about the same . possible non stemi //ischemic changes.) - Patient Data Lab Results Last 24 hrs: Laboratory Results - last 24 hr 03/08/21 03/08/21 03/08/21 Range/Units 03:03 03:03 06:00 WBC 7.2 (5.0-10.0) 10^3/uL RBC 2.98 L (4.6-6.2) 10^6/uL Hgb 8.4 L (14.0-18.0) g/dL Hct 26.5 L (40.0-54.0) % MCV 88.9 (80-100) fL MCH 28.2 (27.0-34.0) pg MCHC 31.7 L (33.0-35.0) g/dL Plt Count 138 L (150-450) 10^3/uL Neut % (Auto) 92.6 H (42.2-75.2) % Lymph % (Auto) 2.5 L (20.5-50.1) % Gillespie % (Auto) 4.5 (2-8) % Eos % (Auto) 0.3 L (1.0-3.0) % Baso % (Auto) 0.1 (0.0-1.0) % ABG pH 7.37 (7.35-7.45) ABG pCO2 44 (35-45) mmHg ABG pO2 98 (70-100) mmHg ABG HCO3 24.6 (22-26) mmol/L ABG O2 Saturation 97 (95-100) % ABG Base Excess 0 ((-2)-(+3)) mmol/L Miguel Test Performed O2 Delivery Device Nasal cannula Sodium 132 L (136-145) mmol/L Potassium 5.1 (3.5-5.1) mmol/L Chloride 93 L (98-107) mmol/L Carbon Dioxide 26 (21-32) mmol/L Anion Gap 18.1 H (7-13) mEq/L BUN 57 H (7-18) mg/dL Creatinine 8.45 H* D (0.70-1.30) mg/dL Est Cr Clr Drug Dosing 8.52 mL/min Estimated GFR (MDRD) 6 Glucose 192 H (70-99) mg/dL Lactic Acid (0.4-2.0) mmol/L Calcium 8.3 L (8.5-10.1) mg/dL Troponin I High Sens 812 H* (<=76) pg/mL 03/08/21 Range/Units 10:30 WBC (5.0-10.0) 10^3/uL RBC (4.6-6.2) 10^6/uL Hgb (14.0-18.0) g/dL Hct (40.0-54.0) % MCV (80-100) fL MCH (27.0-34.0) pg MCHC (33.0-35.0) g/dL Plt Count (150-450) 10^3/uL Neut % (Auto) (42.2-75.2) % Lymph % (Auto) (20.5-50.1) % Gillespie % (Auto) (2-8) % Eos % (Auto) (1.0-3.0) % Baso % (Auto) (0.0-1.0) % ABG pH (7.35-7.45) ABG pCO2 (35-45) mmHg ABG pO2 (70-100) mmHg ABG HCO3 (22-26) mmol/L ABG O2 Saturation (95-100) % ABG Base Excess ((-2)-(+3)) mmol/L Miguel Test O2 Delivery Device Sodium (136-145) mmol/L Potassium (3.5-5.1) mmol/L Chloride (98-107) mmol/L Carbon Dioxide (21-32) mmol/L Anion Gap (7-13) mEq/L BUN (7-18) mg/dL Creatinine (0.70-1.30) mg/dL Est Cr Clr Drug Dosing mL/min Estimated GFR (MDRD) Glucose (70-99) mg/dL Lactic Acid 2.8 H* (0.4-2.0) mmol/L Calcium (8.5-10.1) mg/dL Troponin I High Sens (<=76) pg/mL Result Diagrams: 03/08/21 03:03 03/08/21 03:03 Kasi Results Last 24 hrs: Microbiology 03/07/21 23:07 Aerobic Blood Culture - Preliminary Blood - Venous - Iv Start Anaerobic Blood Culture - Preliminary 03/07/21 23:12 Aerobic Blood Culture - Preliminary Blood - Venous - Lab Draw Anaerobic Blood Culture - Preliminary Sepsis Event Note - Evaluation Sepsis Screening Result: No Definite Risk - Focused Exam Vital Signs: Vital Signs Temp Pulse Resp BP BP Pulse Ox 03/08/21 10:45 125/56 L 03/08/21 10:43 36.6 C 80 18 116/49 L 94 L 03/08/21 08:36 36.6 C 93 22 H 128/63 90 L 03/08/21 06:00 91 22 H 95/50 L 97 03/08/21 05:30 81 24 H 67/38 L 97 03/08/21 04:58 92 22 H 82/40 L 03/08/21 04:51 90 24 H 79/38 L 96 03/08/21 04:46 88 24 H 80/37 L 95 03/08/21 04:42 97 03/08/21 04:40 89 22 H 79/38 L 03/08/21 04:35 82 24 H 78/38 L 94 L 03/08/21 04:11 37.4 C 82 24 H 72/35 L 89 L 03/08/21 03:00 37.3 C 101 H 16 85/67 L 96 - Problem List & Annotations (1) CHF (congestive heart failure) SNOMED Code(s): 65686234 Code(s): I50.9 - HEART FAILURE, UNSPECIFIED Status: Acute Priority: High Current Visit: Yes Onset Date: ~03/07/21 Qualifiers: Heart failure type: combined systolic and diastolic Heart failure chronicity: acute on chronic Qualified Code(s): I50.43 - Acute on chronic combined systolic (congestive) and diastolic (congestive) heart failure (2) Fluid overload SNOMED Code(s): 38898041 Code(s): E87.70 - FLUID OVERLOAD, UNSPECIFIED Status: Acute Priority: Medium Current Visit: Yes Onset Date: ~03/07/21 Qualifiers: Hypervolemia type: other Qualified Code(s): E87.79 - Other fluid overload Annotation/Comment:: unable to do dialysis sec to hypotension and cv instability (3) History of colon cancer SNOMED Code(s): 520884878 Code(s): Z85.038 - PERSONAL HISTORY OF MALIGNANT NEOPLASM OF LARGE INTESTINE Status: Acute Priority: High Current Visit: Yes Onset Date: ~03/08/21 Annotation/Comment:: on chemo treatments . (4) Acute coronary syndrome SNOMED Code(s): 409938834 Code(s): I24.9 - ACUTE ISCHEMIC HEART DISEASE, UNSPECIFIED Status: Acute Priority: High Current Visit: No Onset Date: ~03/08/21 Annotation/Comme nt:: hypotension requiring ionotropic support (5) Acute dyspnea SNOMED Code(s): 069726604, 307906422 Code(s): R06.00 - DYSPNEA, UNSPECIFIED Status: Acute Priority: High Current Visit: No Onset Date: ~03/07/21 Annotation/Comment:: fluid overload sec to renal failure andcannot do scheduled dyalisis (6) Chest pain SNOMED Code(s): 49243633 Code(s): R07.9 - CHEST PAIN, UNSPECIFIED Status: Acute Current Visit: No (7) Chronic pain SNOMED Code(s): 53514103 Code(s): G89.29 - OTHER CHRONIC PAIN Status: Acute Priority: Medium Current Visit: No Onset Date: ~03/08/21 Qualifiers: Chronic pain type: chronic pain syndrome Qualified Code(s): G89.4 - Chronic pain syndrome Annotation/Comment:: resolved currently (8) Chronic renal failure SNOMED Code(s): 34778515 Code(s): N18.9 - CHRONIC KIDNEY DISEASE, UNSPECIFIED Status: Acute Priority: High Current Visit: No Onset Date: ~03/08/21 Qualifiers: Chronic kidney disease stage: stage 5 Qualified Code(s): N18.5 - Chronic kidney disease, stage 5 (9) Dialysis patient SNOMED Code(s): 114772783 Code(s): Z99.2 - DEPENDENCE ON RENAL DIALYSIS Status: Acute Priority: High Current Visit: No Onset Date: ~03/08/21 - Problem List Review Problem List Initiated/Reviewed/Updated: Yes - My Orders Last 24 Hours: My Active Orders 03/08/21 49 year old male with cellulitis/panniculitis (chronically with acute flare.)//morbid obesity bmi 68 and dm ins. dependent on short acting sliding scale a1c 6.4 renal impairment and severe oa / severe neha and chronic hypoxia and chronic edema and chronic veinous stasis and dermatitis. vss lungs clear a nd decreased. cor rrr without m s3/s4. abd severe chronic induration and redness without drainage. extends to folds over suprapubic area. tender to touch mildly. ? some improvement. neuro nnormal. ext edema 3 plus varicosities. labs wbc 25 k /// crp 4.6. hgn and plat stable. denies voiding difficulties but poor sleep sec to back discomfort. b.s 240 now 177 assess : cellulitis panniculitis. on cleocin and cont . bathing / even bed bath difficult but may help. circ. imapaired sec. to overlap and compression. hx of chronic antibiotic prophylaxis and may be dealing with resistant org. no cultures sent. judge's clerk clinical response by tomrrow. dm poor control and add back metformin and long acting insulin and encouraged him to check post prandial b.s. despite good a1c. morbid obesity with neha on cpap chonic hypoxia stable currently . chronic edema ndneeds echo if not done already . chronic antibiotic prophylaxis by hx . asses clinical response. abd binder may help. ambulation limitations form medical problems. back pain . renal insuff on diuretics . electrolyte monitoring required. boh - Plan Plan:: 70 yo with h/o cad, chf, esrd on HD (Mo, we, sat), last HD 03/06/21 h/o chronic pain, chronic continuous narcotic use Recently diagnosed with colon ca with lung mets, started on chemo tx with FolFOx, last treatment: last week Presented with increasing sob associated with on/off chest pain, midsternal, b/l sides, non radiating, lasting for minutes, resolving on its own or with hydrocodone Sob with fluid overload due to ESRD on HD Esrd, hyponatremia on HD Dialysis bed is not available on waiting list for [facility] Will give Lasix 80 mg q8h Will arrange HD as soon as possible I have called [facility] - no bed available called dr. Perry from nephrlology - will try to run him in HD unit in [place] - this is not a standard procedure but due to lack of ability to transfer due to nursing shortage and covid epidemic will try to arrange something I think his need for HD is more improtant than any other treatment needs missing HD tomorrow would make his condition worse than any other treatment that we can provide Acute non st mi likely type II due to fluid overload With mild troponin elevation only (especially in the setting of ESRD) Will monitor on tele Repeat troponin Treat with asa Hold BBlocker, carolyn re: hypotension Cont statin f/up with echo as out pt Chronic hypotension Will add scheduled midodrine Stop Norvasc Hold carolyn, metoprolol for now Chronic pain Cont hydrocodone prn Anemia Likely due to ESRD Will monitor Dvt prophylaxis Sq heparin Code status Patient requested dnr status 03/08/21 see above. patient stabilized earlier this am and able to wean down levophed and no sign change in trop, but now trop going up last one 1150 and suspect ischemic issues and possible stemi ami even possible given ekg changes. feel he needs further cardiac eval as well as increasingly severe needs for dyalisis urgently . will call [facility] a nd seek cardiology eval and nephrology consult. hypotension better on levophed currently at 6 mcg. pulm edema same . anemia same hgn 8.8 other labs same. on vanco for rule out pneumonia but no infiltrate seen on chest xray , cardiomegaly noted/ increased vasc markings. renal failure requiring dyalisis. colon cancer on treatment with known liver and lung mets. elavated lfts. chronic chest and other pain syndromes . boh
[2021-03-08] MEDS ORDERED: Bumetanide 1 MG/4 ML MDV IVPUSH ONE (17:15)
[2021-03-08] MEDS: Acetaminophen/HYDROcodone 325-5 MG Tab PO PRN (20:49)
[2021-03-08] MEDS: atorvaSTATin 20 MG Tab PO SCH (20:50)
[2021-03-09] MEDS: Piperacillin/Tazobactam 3.375 GM in Sodium Chloride 0.9% 100 ML IV SCH (05:29)
[2021-03-09] MEDS: Norepinephrine 4 MG in Dextrose 5% in Water 246 ML IV SCH ×2 (06:32)
[2021-03-09 06:59] LABS: ANION GAP 17.6 mEq/L (7-13)
[2021-03-09] MEDS: Heparin Sodium 5,000 Units/ML Vial SUBCUT SCH ×2 (07:01→14:49)
[2021-03-09] MEDS: Vitamin B Complex Cap PO SCH (09:09)
[2021-03-09] MEDS: Calcium Carbonate 500 MG Tab.Chew PO SCH ×2 (09:09→12:15)
[2021-03-09 10:43] LABS: ANION GAP 16.8 mEq/L (7-13)
[2021-03-09] MEDS: CALCIUM ACETATE 667 MG PO SCH ×2 (12:14→13:05)
[2021-03-09] MEDS: Acetaminophen/HYDROcodone 325-5 MG Tab PO PRN (12:15)
[2021-03-09] MEDS: [UNRECOGNIZED DRUG - REMARK] PO SCH ×2 (12:15→14:48)
[2021-03-09] MEDS ORDERED: Sodium Polystyrene Sulfonate 15 GM/60 ML Susp 60 ML Bot PO SCH (15:00)
--- NOTE | 2021-03-09 15:54 | PCM.DCSUM1 ---
Discharge Summary - Hospital Course Free Text/Narrative:: Davey is a 70-year-old male with a past medical history of metastatic colon cancer to the liver and lung currently receiving FOLFOX, last dose 48 hours ago, chronic pain syndrome, and end-stage renal disease requiring dialysis on Saturday, Saturday, and Saturday, with his last dialysis on 03/06/2021, presenting to the emergency room with increased shortness of breath and bilateral leg edema. He was found to be hypotensive and was started on Levophed and eventually needing 5 mcg. Korey is able to normally produce a small amount of urine but, as of today, he had not produced any urine even with a dose of Bumex yesterday. He was admitted to the critical care unit and was started on vancomycin and Zosyn due to concerns for infection, with the only concerning lab for infection being an elevated lactic acid at 2.8. The lactic acid resolved within 24 hours. His white blood cell count was normal and there were no other signs of infection, and antibiotics were stopped before discharge. His potassium climbed from 5.1 on admission to 5.8 today. On day 1 of hospital stay, 03/08/2021, he had 15 beats of SVT, for which he was asymptomatic at that time and did not require any medical intervention. The most recent EKG showed ST segment depressions measu ring 1 mm in leads V3 through V5. These ST segment changes are not new and were noted on admission. The ST segment changes was accompanied by an elevated troponin. Yesterday, the hospitalist discussed these findings with a va underwriter in [place], whom thought the findings was not an NSTEMI but a result of acute on chronic congestive heart failure. Davey has not complain of chest pain while in the hospital. Currently, he is on Levophed at 2 mcg, with a resulting blood pressure in the 100s/50s. Kayexalate was started today before he was accepted as a transfer to [place]. Davey was transported to by ground ambulance and the accepting physician is the hydrometeorology teacher, Dr. Mustafa. Diagnosis: Stroke: No - Discharge Data Discharge Date: 03/09/21 Discharge Disposition: DC/Tfer to Acute Hospital 02 Condition: Serious - Referral to Home Health Primary Care Physician: PCP None - Discharge Diagnosis/Problem(s) (1) Hypotension SNOMED Code(s): 13798927 ICD Code: I95.9 - HYPOTENSION, UNSPECIFIED Status: Acute Current Visit: Yes (2) CHF (congestive heart failure) SNOMED Code(s): 95300348 ICD Code: I50.9 - HEART FAILURE, UNSPECIFIED Status: Acute Priority: High Current Visit: Yes (3) Hyperkalemia, diminished renal excretion SNOMED Code(s): 25644365 ICD Code: E87.5 - HYPERKALEMIA Status: Acute Priority: High Current Visit: Yes (4) History of colon cancer SNOMED Code(s): 668949223 ICD Code: Z85.038 - PERSONAL HISTORY OF MALIGNANT NEOPLASM OF LARGE INTESTINE Status: Acute Priority: High Current Visit: Yes Onset Date: ~03/08/21 Problem Details: on chemo treatments . (5) Acute and chronic respiratory failure with hypoxia SNOMED Code(s): 29477591, 686570464 ICD Code: J96.21 - ACUTE AND CHRONIC RESPIRATORY FAILURE WITH HYPOXIA Status: Acute Priority: Medium Current Visit: Yes (6) ESRD on hemodialysis SNOMED Code(s): 117858699 ICD Code: N18.6 - END STAGE RENAL DISEASE; Z99.2 - DEPENDENCE ON RENAL DIALYSIS Status: Acute Priority: High Current Visit: Yes - Patient Summary/Data Consults: Consultations 03/07/21 15:33 OT Evaluation and Treatment [CONS] Routine PT Evaluation and Treatment [CONS] Routine - Patient Instructions Diet: Renal Diet Fluid Restriction: 1500 mL Activity: As Tolerated - Discharge Plan *PRESCRIPTION DRUG MONITORING PROGRAM REVIEWED*: Not Applicable *COPY OF PRESCRIPTION DRUG MONITORING REPORT IN PATIENT ROBINA: Not Applicable Home Medications: Home Meds atorvaSTATin [Lipitor] 20 mg PO BEDTIME 12/02/15 [History] Vitamin B Comp W-C/FA/Zinc [Anamaria B Strong with C & Zinc Tb] 1 each PO DAILY 08/04/20 [History] Calcium Carbonate [Tums] 500 mg PO TIDMEALS 01/06/21 [History] Bumetanide [Bumex] 2 mg PO DAILY 03/07/21 [History] Calcium Acetate [PhosLo] 3,335 mg PO TIDMEALS 03/07/21 [History] Calcium Acetate [PhosLo] 667 mg PO .WITH SNACKS 03/07/21 [History] Midodrine 10 mg PO ASDIRECTED 03/07/21 [History] Ondansetron [Zofran] 8 mg PO Q8H PRN 03/07/21 [History] Albuterol Sulfate [Proair Digihaler] 90 mcg IH 03/08/21 [History] Acetaminophen [Tylenol] 650 mg PO Q4H PRN tablet 03/09/21 [Rx] Docusate Sodium [Colace] 100 mg PO BID PRN cap 03/09/21 [Rx] Heparin Sodium 5,000 units SUBCUT Q8HR vial 03/09/21 [Rx] Norepinephrine [Levophed] 4 mg IV TITRATE sdv 03/09/21 [Rx] Sodium Polystyrene Sulfonate [Kayexalate] 15 gm PO Q8H bottle 03/09/21 [Rx] Oxygen Therapy Mode: Nasal Cannula - Discharge Summary/Plan Comment DC Time >30 min.: Yes Total # of Minutes for Discharge Time: 50 - Patient Data Vitals - Most Recent: Last Vital Signs Temp 98.9 F 03/09/21 12:30 Pulse 89 03/09/21 12:30 Resp 18 03/09/21 12:30 BP 110/48 L 03/09/21 12:30 Pulse Ox 96 03/09/21 12:30 Weight - Most Recent: 207 lb 3.2 oz I&O - Last 24 hours: Intake & Output 03/09/21 03/09/21 03/09/21 06:59 14:59 22:59 Intake Total 450 480 Output Total 0 Balance 450 480 Lab Results - Last 24 hrs: Laboratory Results - last 24 hr 03/09/21 03/09/21 03/09/21 Range/Units 06:20 06:20 06:20 WBC 4.8 L (5.0-10.0) 10^3/uL RBC 3.09 L (4.6-6.2) 10^6/uL Hgb 8.6 L (14.0-18.0) g/dL Hct 27.4 L (40.0-54.0) % MCV 88.7 (80-100) fL MCH 27.8 (27.0-34.0) pg MCHC 31.4 L (33.0-35.0) g/dL Plt Count 116 L (150-450) 10^3/uL Neut % (Auto) 84.4 H (42.2-75.2) % Lymph % (Auto) 6.1 L (20.5-50.1) % Rogers % (Auto) 7.8 (2-8) % Eos % (Auto) 1.5 (1.0-3.0) % Baso % (Auto) 0.2 (0.0-1.0) % Sodium 132 L (136-145) mmol/L Potassium 5.6 H (3.5-5.1) mmol/L Chloride 93 L (98-107) mmol/L Carbon Dioxide 27 (21-32) mmol/L Anion Gap 17.6 H (7-13) mEq/L BUN 76 H (7-18) mg/dL Creatinine 9.96 H* D (0.70-1.30) mg/dL Est Cr Clr Drug Dosing 7.23 mL/min Estimated GFR (MDRD) 5 BUN/Creatinine Ratio (No establ ref range) Glucose 198 H (70-99) mg/dL Lactic Acid (0.4-2.0) mmol/L Calcium 8.7 (8.5-10.1) mg/dL Phosphorus (2.6-4.7) mg/dL Magnesium (1.8-2.4) mg/dL Total Bilirubin (0.2-1.0) mg/dL AST (15-37) U/L ALT (16-63) U/L Alkaline Phosphatase (46-116) U/L Troponin I High Sens 1157 H* (<=76) pg/mL C-Reactive Protein 39.1 H (0.0-0.9) mg/dL B-Natriuretic Peptide 4760 H (0-100) pg/ml Total Protein (6.4-8.2) g/dL Albumin (3.4-5.0) g/dL Globulin Albumin/Globulin Ratio Vancomycin Trough (10.0-20.0) ug/mL 03/09/21 03/09/21 03/09/21 Range/Units 06:20 06:20 10:12 WBC (5.0-10.0) 10^3/uL RBC (4.6-6.2) 10^6/uL Hgb (14.0-18.0) g/dL Hct (40.0-54.0) % MCV (80-100) fL MCH (27.0-34.0) pg MCHC (33.0-35.0) g/dL Plt Count (150-450) 10^3/uL Neut % (Auto) (42.2-75.2) % Lymph % (Auto) (20.5-50.1) % Rogers % (Auto) (2-8) % Eos % (Auto) (1.0-3.0) % Baso % (Auto) (0.0-1.0) % Sodium 129 L (136-145) mmol/L Potassium 5.8 H (3.5-5.1) mmol/L Chloride 93 L (98-107) mmol/L Carbon Dioxide 25 (21-32) mmol/L Anion Gap 16.8 H (7-13) mEq/L BUN 77 H (7-18) mg/dL Creatinine 9.74 H* (0.70-1.30) mg/dL Est Cr Clr Drug Dosing 7.39 mL/min Estimated GFR (MDRD) 5 BUN/Creatinine Ratio 7.9 (No establ ref range) Glucose 229 H (70-99) mg/dL Lactic Acid 1.4 (0.4-2.0) mmol/L Calcium 8.3 L (8.5-10.1) mg/dL Phosphorus 5.4 H (2.6-4.7) mg/dL Magnesium 1.5 L (1.8-2.4) mg/dL Total Bilirubin 0.6 (0.2-1.0) mg/dL AST 83 H (15-37) U/L ALT 97 H (16-63) U/L Alkaline Phosphatase 245 H (46-116) U/L Troponin I High Sens (<=76) pg/mL C-Reactive Protein (0.0-0.9) mg/dL B-Natriuretic Peptide (0-100) pg/ml Total Protein 6.0 L (6.4-8.2) g/dL Albumin 1.8 L (3.4-5.0) g/dL Globulin 4.2 Albumin/Globulin Ratio 0.43 Vancomycin Trough 13.9 (10.0-20.0) ug/mL MARCK Results - Last 24 hrs: Microbiology 03/07/21 23:12 Aerobic Blood Culture - Preliminary Blood - Venous - Lab Draw Anaerobic Blood Culture - Preliminary 03/07/21 23:07 Aerobic Blood Culture - Preliminary Blood - Venous - Iv Start Anaerobic Blood Culture - Preliminary Med Orders - Current: Current Medications Acetaminophen (Acetaminophen 325 Mg Tab) 650 mg PO Q4H PRN PRN Reason: Pain (Mild 1-3)/fever Hydrocodone Bitart/Acetaminophen (Acetaminophen/Hydrocodone 325-5 Mg Tab) 1 tab PO Q6HR PRN PRN Reason: Pain (moderate 4-6) Last Admin: 03/09/21 12:15 Dose: 1 tab Documented by: Atorvastatin Calcium (Atorvastatin 20 Mg Tab) 20 mg PO BEDTIME [facility] Last Admin: 03/08/21 20:50 Dose: 20 mg Documented by: Calcium Carbonate/Glycine (Calcium Carbonate 500 Mg Tab.Chew) 500 mg PO TIDMEALS [facility] Last Admin: 03/09/21 12:15 Dose: 500 mg Documented by: Docusate Sodium (Docusate Sodium 100 Mg Cap) 100 mg PO BID PRN PRN Reason: Constipation Heparin Sodium (Porcine) (Heparin Sodium 5,000 Units/Ml Vial) 5,000 units SUBCUT Q8HR [facility] Last Admin: 03/09/21 14:49 Dose: 5,000 units Documented by: Norepinephrine Bitartrate 4 mg (/ Dextrose/Water) 250 mls @ 7.5 mls/hr IV TITRATE [facility]; Protocol Last Admin: 03/09/21 06:32 Dose: 2 mcg/min, 7.5 mls/hr Documented by: Midodrine (Midodrine 2.5 Mg Tab) 5 mg PO Q6H PRN PRN Reason: sbp<90 Last Admin: 03/08/21 08:25 Dose: 5 mg Documented by: Calcium Acetate [ (Phoslo] 667 Mg Cap) 0 mg PO TIDMEALS [facility] Last Admin: 03/09/21 13:05 Dose: 3,335 mg Documented by: Calcium Acetate [ Phoslo] 667 Mg Cap * *Non Form 0 mg PO DAILY@1000,1400 [facility] Last Admin: 03/09/21 14:48 Dose: 667 mg Documented by: Sodium Chloride (Sodium Chloride 0.9% 10 Ml Syringe) 10 ml FLUSH ASDIRECTED PRN PRN Reason: Keep Vein Open Sodium Polystyrene Sulfonate (Sodium Polystyrene Sulfonate 15 Gm/60 Ml Susp 60 Ml Bot) 15 gm PO Q8H [facility] Last Admin: 03/09/21 14:49 Dose: 15 gm Documented by: Temazepam (Temazepam 15 Mg Cap) 15 mg PO BEDTIME PRN PRN Reason: Sleep Last Admin: 03/07/21 21:38 Dose: 15 mg Documented by: Vitamin B Complex (Vitamin B Complex Cap) 1 each PO DAILY [facility] Last Admin: 03/09/21 09:09 Dose: 1 each Documented by: Discontinued Medications Albuterol/Ipratropium (Albuterol/Ipratropium 3.0-0.5 Mg/3 Ml Neb Soln) 3 ml NEB ONETIME ONE Stop: 03/07/21 10:57 Last Admin: 03/07/21 11:20 Dose: 3 ml Documented by: Aspirin (Aspirin 325 Mg Tab) 325 mg PO WITHBREAKFAST [facility] Last Admin: 03/07/21 18:15 Dose: Not Given Documented by: Bumetanide (Bumetanide 1 Mg/4 Ml Mdv) 2 mg IVPUSH ONETIME ONE Stop: 03/07/21 13:18 Last Admin: 03/07/21 13:31 Dose: 2 mg Documented by: Bumetanide (Bumetanide 1 Mg/4 Ml Mdv) 3 mg IVPUSH ONETIME ONE Stop: 03/08/21 17:16 Last Admin: 03/08/21 17:38 Dose: 3 mg Documented by: Sodium Chloride (Normal Saline) 500 mls @ 999 mls/hr IV .BOLUS [facility] Last Admin: 03/08/21 04:28 Dose: 999 mls/hr Documented by: Piperacillin Sod/Tazobactam (Sod 3.375 gm/ Sodium Chloride) 100 mls @ 200 mls/hr IV Q12H [facility] Last Admin: 03/09/21 05:29 Dose: 200 mls/hr Documented by: Vancomycin HCl 1.25 gm/ Sodium (Chloride) 250 mls @ 166.667 mls/hr IV ONETIME ONE Stop: 03/08/21 06:29 Last Admin: 03/08/21 05:16 Dose: 166.667 mls/hr Documented by: Vancomycin HCl 1.25 gm/ Sodium (Chloride) 250 mls @ 166.667 mls/hr IV ONETIME ONE Stop: 03/09/21 09:29 Last Admin: 03/09/21 10:13 Dose: Not Given Documented by: Metoprolol Tartrate (Metoprolol Tartrate 50 Mg Tab) 50 mg PO ONETIME ONE Stop: 03/07/21 22:05 Last Admin: 03/07/21 22:20 Dose: 50 mg Documented by: Non-Formulary Medication (Midodrine [Midodrine]) 10 mg PO Q6H PRN PRN Reason: sbp<90 Ondansetron HCl (Ondansetron 4 Mg Tab.Dis) 8 mg PO Q8H PRN PRN Reason: Nausea/Vomiting Ondansetron HCl (Ondansetron 4 Mg/2 Ml Sdv) 4 mg IVPUSH Q4H PRN PRN Reason: Nausea/Vomiting Oxycodone/Acetaminophen (Acetaminophen/Oxycodone 325-5 Mg Tab) 2 tab PO ONETIME ONE Stop: 03/07/21 11:08 Last Admin: 03/07/21 12:15 Dose: 2 tab Documented by: Prochlorperazine Maleate (Prochlorperazine 5 Mg Tab) 10 mg PO Q6H PRN PRN Reason: Nausea/Vomiting, use 2nd Sodium Chloride (Sodium Chloride 0.9% 10 Ml Syringe) 10 ml FLUSH ASDIRECTED PRN PRN Reason: Keep Vein Open Last Admin: 03/07/21 12:15 Dose: 10 ml Documented by: Vancomycin HCl (Pharmacy To Dose - Vancomycin) 1 dose .XX ASDIRECTED DONAVAN
[2021-03-09 16:02] VITALS: BP 108/61; PULSE 80
--- NOTE | 2021-03-10 15:07 | PCM.PN ---
- General Info Date of Service: 03/09/21 Admission Dx/Problem (Free Text): Hypotension requiring pressors and ESRD needing dialysis - Patient Data Vitals - Most Recent: Last Vital Signs Temp 97.1 F 03/09/21 16:01 Pulse 80 03/09/21 16:01 Resp 16 03/09/21 16:01 BP 108/61 03/09/21 16:01 Pulse Ox 96 03/09/21 16:01 Weight - Most Recent: 207 lb 3.2 oz Kasi Results Last 24 Hours: Microbiology 03/07/21 23:12 Aerobic Blood Culture - Final Blood - Venous - Lab Draw Proteus Mirabilis Anaerobic Blood Culture - Final Proteus Mirabilis 03/07/21 23:07 Aerobic Blood Culture - Final Blood - Venous - Iv Start Proteus Mirabilis Anaerobic Blood Culture - Final Proteus Mirabilis Med Orders - Current: Current Medications Discontinued Medications Acetaminophen (Acetaminophen 325 Mg Tab) 650 mg PO Q4H PRN PRN Reason: Pain (Mild 1-3)/fever Hydrocodone Bitart/Acetaminophen (Acetaminophen/Hydrocodone 325-5 Mg Tab) 1 tab PO Q6HR PRN PRN Reason: Pain (moderate 4-6) Last Admin: 03/09/21 12:15 Dose: 1 tab Documented by: Albuterol/Ipratropium (Albuterol/Ipratropium 3.0-0.5 Mg/3 Ml Neb Soln) 3 ml NEB ONETIME ONE Stop: 03/07/21 10:57 Last Admin: 03/07/21 11:20 Dose: 3 ml Documented by: Aspirin (Aspirin 325 Mg Tab) 325 mg PO WITHBREAKFAST [facility] Last Admin: 03/07/21 18:15 Dose: Not Given Documented by: Atorvastatin Calcium (Atorvastatin 20 Mg Tab) 20 mg PO BEDTIME [facility] Last Admin: 03/08/21 20:50 Dose: 20 mg Documented by: Bumetanide (Bumetanide 1 Mg/4 Ml Mdv) 2 mg IVPUSH ONETIME ONE Stop: 03/07/21 13:18 Last Admin: 03/07/21 13:31 Dose: 2 mg Documented by: Bumetanide (Bumetanide 1 Mg/4 Ml Mdv) 3 mg IVPUSH ONETIME ONE Stop: 03/08/21 17:16 Last Admin: 03/08/21 17:38 Dose: 3 mg Documented by: Calcium Carbonate/Glycine (Calcium Carbonate 500 Mg Tab.Chew) 500 mg PO TIDMEALS [facility] Last Admin: 03/09/21 12:15 Dose: 500 mg Documented by: Docusate Sodium (Docusate Sodium 100 Mg Cap) 100 mg PO BID PRN PRN Reason: Constipation Heparin Sodium (Porcine) (Heparin Sodium 5,000 Units/Ml Vial) 5,000 units SUBCUT Q8HR [facility] Last Admin: 03/09/21 14:49 Dose: 5,000 units Documented by: Sodium Chloride (Normal Saline) 500 mls @ 999 mls/hr IV .BOLUS [facility] Last Admin: 03/08/21 04:28 Dose: 999 mls/hr Documented by: Piperacillin Sod/Tazobactam (Sod 3.375 gm/ Sodium Chloride) 100 mls @ 200 mls/hr IV Q12H [facility] Last Admin: 03/09/21 05:29 Dose: 200 mls/hr Documented by: Vancomycin HCl 1.25 gm/ Sodium (Chloride) 250 mls @ 166.667 mls/hr IV ONETIME ONE Stop: 03/08/21 06:29 Last Admin: 03/08/21 05:16 Dose: 166.667 mls/hr Documented by: Norepinephrine Bitartrate 4 mg (/ Dextrose/Water) 250 mls @ 7.5 mls/hr IV TITRATE [facility]; Protocol Last Admin: 03/09/21 06:32 Dose: 2 mcg/min, 7.5 mls/hr Documented by: Vancomycin HCl 1.25 gm/ Sodium (Chloride) 250 mls @ 166.667 mls/hr IV ONETIME ONE Stop: 03/09/21 09:29 Last Admin: 03/09/21 10:13 Dose: Not Given Documented by: Metoprolol Tartrate (Metoprolol Tartrate 50 Mg Tab) 50 mg PO ONETIME ONE Stop: 03/07/21 22:05 Last Admin: 03/07/21 22:20 Dose: 50 mg Documented by: Midodrine (Midodrine 2.5 Mg Tab) 5 mg PO Q6H PRN PRN Reason: sbp<90 Last Admin: 03/08/21 08:25 Dose: 5 mg Documented by: Calcium Acetate [ (Phoslo] 667 Mg Cap) 0 mg PO TIDMEALS [facility] Last Admin: 03/09/21 13:05 Dose: 3,335 mg Documented by: Non-Formulary Medication (Midodrine [Midodrine]) 10 mg PO Q6H PRN PRN Reason: sbp<90 Calcium Acetate [ Phoslo] 667 Mg Cap * *Non Form 0 mg PO DAILY@1000,1400 [facility] Last Admin: 03/09/21 14:48 Dose: 667 mg Documented by: Ondansetron HCl (Ondansetron 4 Mg Tab.Dis) 8 mg PO Q8H PRN PRN Reason: Nausea/Vomiting Ondansetron HCl (Ondansetron 4 Mg/2 Ml Sdv) 4 mg IVPUSH Q4H PRN PRN Reason: Nausea/Vomiting Oxycodone/Acetaminophen (Acetaminophen/Oxycodone 325-5 Mg Tab) 2 tab PO ONETIME ONE Stop: 03/07/21 11:08 Last Admin: 03/07/21 12:15 Dose: 2 tab Documented by: Prochlorperazine Maleate (Prochlorperazine 5 Mg Tab) 10 mg PO Q6H PRN PRN Reason: Nausea/Vomiting, use 2nd Sodium Chloride (Sodium Chloride 0.9% 10 Ml Syringe) 10 ml FLUSH ASDIRECTED PRN PRN Reason: Keep Vein Open Last Admin: 03/07/21 12:15 Dose: 10 ml Documented by: Sodium Chloride (Sodium Chloride 0.9% 10 Ml Syringe) 10 ml FLUSH ASDIRECTED PRN PRN Reason: Keep Vein Open Sodium Polystyrene Sulfonate (Sodium Polystyrene Sulfonate 15 Gm/60 Ml Susp 60 Ml Bot) 15 gm PO Q8H [facility] Last Admin: 03/09/21 14:49 Dose: 15 gm Documented by: Temazepam (Temazepam 15 Mg Cap) 15 mg PO BEDTIME PRN PRN Reason: Sleep Last Admin: 03/07/21 21:38 Dose: 15 mg Documented by: Vancomycin HCl (Pharmacy To Dose - Vancomycin) 1 dose .XX ASDIRECTED [facility] Vitamin B Complex (Vitamin B Complex Cap) 1 each PO DAILY [facility] Last Admin: 03/09/21 09:09 Dose: 1 each Documented by: - Patient Data Result Diagrams: 03/09/21 06:20 03/09/21 10:12 Kasi Results Last 24 hrs: Microbiology 03/07/21 23:12 Aerobic Blood Culture - Final Blood - Venous - Lab Draw [facility] Anaerobic Blood Culture - Final Proteus Mirabilis 03/07/21 23:07 Aerobic Blood Culture - Final Blood - Venous - Iv Start [facility] Anaerobic Blood Culture - Final [facility] Sepsis Event Note - Evaluation Sepsis Screening Result: No Definite Risk - Problem List & Annotations (1) Hypotension SNOMED Code(s): 42183907 Code(s): I95.9 - HYPOTENSION, UNSPECIFIED Status: Acute (2) CHF (congestive heart failure) SNOMED Code(s): 80817133 Code(s): I50.9 - HEART FAILURE, UNSPECIFIED Status: Acute Priority: High (3) Hyperkalemia, diminished renal excretion SNOMED Code(s): 35173469 Code(s): E87.5 - HYPERKALEMIA Status: Acute Priority: High (4) History of colon cancer SNOMED Code(s): 917120404 Code(s): Z85.038 - PERSONAL HISTORY OF MALIGNANT NEOPLASM OF LARGE INTESTINE Status: Acute Priority: High Onset Date: ~03/08/21 Annotation/Comment:: on chemo treatments . (5) Acute and chronic respiratory failure with hypoxia SNOMED Code(s): 04152627, 128159245 Code(s): J96.21 - ACUTE AND CHRONIC RESPIRATORY FAILURE WITH HYPOXIA Status: Acute Priority: Medium (6) ESRD on hemodialysis SNOMED Code(s): 019281742 Code(s): N18.6 - END STAGE RENAL DISEASE; Z99.2 - DEPENDENCE ON RENAL DIALYSIS Status: Acute Priority: High - Problem List Review Problem List Initiated/Reviewed/Updated: Yes - Assessment Assessment:: EKG interpretation for 03/09/21 at 0755 Normal sinus rhythm Rate 94 Normal axis Normal P wave ST segment depressions in leads V2 through V5 QTC prolongation Muscle artifact No complete heart block No prior EKG - Plan Plan:: 70 yo with h/o cad, chf, esrd on HD (, , sat), last HD 03/06/21 h/o chronic pain, chronic continuous narcotic use Recently diagnosed with colon ca with lung mets, started on chemo tx with FolFOx, last treatment: last week Presented with increasing sob associated with on/off chest pain, midsternal, b/l sides, non radiating, lasting for minutes, resolving on its own or with hydrocodone Sob with fluid overload due to ESRD on HD Esrd, hyponatremia on HD Dialysis bed is not available on waiting list for [facility] Will give Lasix 80 mg q8h Will arrange HD as soon as possible I have called [facility] - no bed available called dr. Perry from nephrlology - will try to run him in HD unit in [place] - this is not a standard procedure but due to lack of ability to transfer due to nursing shortage and covid epidemic will try to arrange something I think his need for HD is more improtant than any other treatment needs missing HD tomorrow would make his condition worse than any other treatment that we can provide Acute non st mi likely type II due to fluid overload With mild troponin elevation only (especially in the setting of ESRD) Will monitor on tele Repeat troponin Treat with asa Hold BBlocker, carolyn re: hypotension Cont statin f/up with echo as out pt Chronic hypotension Will add scheduled midodrine Stop Norvasc Hold carolyn, metoprolol for now Chronic pain Cont hydrocodone prn Anemia Likely due to ESRD Will monitor Dvt prophylaxis Sq heparin Code status Patient requested dnr status 03/08/21 see above. patient stabilized earlier this am and able to wean down levophed and no sign change in trop, but now trop going up last one 1150 and suspect ischemic issues and possible stemi ami even possible given ekg changes. feel he needs further cardiac eval as well as in creasingly severe needs for dyalisis urgently . will call [facility] a nd seek cardiology eval and nephrology consult. hypotension better on levophed currently at 6 mcg. pulm edema same . anemia same hgn 8.8 other labs same. on vanco for rule out pneumonia but no infiltrate seen on chest xray , cardiomegaly noted/ increased vasc markings. renal failure requiring dyalisis. colon cancer on treatment with known liver and lung mets. elavated lfts. chronic chest and other pain syndromes . boh
--- NOTE | 2021-03-10 15:10 | PCM.PN ---
- General Info Date of Service: 03/09/24 Admission Dx/Problem (Free Text): Hypotension requiring pressors and ESRD needing dialysis - Patient Data Vitals - Most Recent: Last Vital Signs Temp 97.1 F 03/09/21 16:01 Pulse 80 03/09/21 16:01 Resp 16 03/09/21 16:01 BP 108/61 03/09/21 16:01 Pulse Ox 96 03/09/21 16:01 Weight - Most Recent: 207 lb 3.2 oz Kasi Results Last 24 Hours: Microbiology 03/07/21 23:12 Aerobic Blood Culture - Final Blood - Venous - Lab Draw Proteus Mirabilis Anaerobic Blood Culture - Final Proteus Mirabilis 03/07/21 23:07 Aerobic Blood Culture - Final Blood - Venous - Iv Start [facility] Anaerobic Blood Culture - Final [facility] Med Orders - Current: Current Medications Discontinued Medications Acetaminophen (Acetaminophen 325 Mg Tab) 650 mg PO Q4H PRN PRN Reason: Pain (Mild 1-3)/fever Hydrocodone Bitart/Acetaminophen (Acetaminophen/Hydrocodone 325-5 Mg Tab) 1 tab PO Q6HR PRN PRN Reason: Pain (moderate 4-6) Last Admin: 03/09/21 12:15 Dose: 1 tab Documented by: Albuterol/Ipratropium (Albuterol/Ipratropium 3.0-0.5 Mg/3 Ml Neb Soln) 3 ml NEB ONETIME ONE Stop: 03/07/21 10:57 Last Admin: 03/07/21 11:20 Dose: 3 ml Documented by: Aspirin (Aspirin 325 Mg Tab) 325 mg PO WITHBREAKFAST [facility] Last Admin: 03/07/21 18:15 Dose: Not Given Documented by: Atorvastatin Calcium (Atorvastatin 20 Mg Tab) 20 mg PO BEDTIME [facility] Last Admin: 03/08/21 20:50 Dose: 20 mg Documented by: Bumetanide (Bumetanide 1 Mg/4 Ml Mdv) 2 mg IVPUSH ONETIME ONE Stop: 03/07/21 13:18 Last Admin: 03/07/21 13:31 Dose: 2 mg Documented by: Bumetanide (Bumetanide 1 Mg/4 Ml Mdv) 3 mg IVPUSH ONETIME ONE Stop: 03/08/21 17:16 Last Admin: 03/08/21 17:38 Dose: 3 mg Documented by: Calcium Carbonate/Glycine (Calcium Carbonate 500 Mg Tab.Chew) 500 mg PO TIDMEALS [facility] Last Admin: 03/09/21 12:15 Dose: 500 mg Documented by: Docusate Sodium (Docusate Sodium 100 Mg Cap) 100 mg PO BID PRN PRN Reason: Constipation Heparin Sodium (Porcine) (Heparin Sodium 5,000 Units/Ml Vial) 5,000 units SUBCUT Q8HR [facility] Last Admin: 03/09/21 14:49 Dose: 5,000 units Documented by: Sodium Chloride (Normal Saline) 500 mls @ 999 mls/hr IV .BOLUS [facility] Last Admin: 03/08/21 04:28 Dose: 999 mls/hr Documented by: Piperacillin Sod/Tazobactam (Sod 3.375 gm/ Sodium Chloride) 100 mls @ 200 mls/hr IV Q12H [facility] Last Admin: 03/09/21 05:29 Dose: 200 mls/hr Documented by: Vancomycin HCl 1.25 gm/ Sodium (Chloride) 250 mls @ 166.667 mls/hr IV ONETIME ONE Stop: 03/08/21 06:29 Last Admin: 03/08/21 05:16 Dose: 166.667 mls/hr Documented by: Norepinephrine Bitartrate 4 mg (/ Dextrose/Water) 250 mls @ 7.5 mls/hr IV TITRATE [facility]; Protocol Last Admin: 03/09/21 06:32 Dose: 2 mcg/min, 7.5 mls/hr Documented by: Vancomycin HCl 1.25 gm/ Sodium (Chloride) 250 mls @ 166.667 mls/hr IV ONETIME ONE Stop: 03/09/21 09:29 Last Admin: 03/09/21 10:13 Dose: Not Given Documented by: Metoprolol Tartrate (Metoprolol Tartrate 50 Mg Tab) 50 mg PO ONETIME ONE Stop: 03/07/21 22:05 Last Admin: 03/07/21 22:20 Dose: 50 mg Documented by: Midodrine (Midodrine 2.5 Mg Tab) 5 mg PO Q6H PRN PRN Reason: sbp<90 Last Admin: 03/08/21 08:25 Dose: 5 mg Documented by: Calcium Acetate [ (Phoslo] 667 Mg Cap) 0 mg PO TIDMEALS [facility] Last Admin: 03/09/21 13:05 Dose: 3,335 mg Documented by: Non-Formulary Medication (Midodrine [Midodrine]) 10 mg PO Q6H PRN PRN Reason: sbp<90 Calcium Acetate [ Phoslo] 667 Mg Cap * *Non Form 0 mg PO DAILY@1000,1400 [facility] Last Admin: 03/09/21 14:48 Dose: 667 mg Documented by: Ondansetron HCl (Ondansetron 4 Mg Tab.Dis) 8 mg PO Q8H PRN PRN Reason: Nausea/Vomiting Ondansetron HCl (Ondansetron 4 Mg/2 Ml Sdv) 4 mg IVPUSH Q4H PRN PRN Reason: Nausea/Vomiting Oxycodone/Acetaminophen (Acetaminophen/Oxycodone 325-5 Mg Tab) 2 tab PO ONETIME ONE Stop: 03/07/21 11:08 Last Admin: 03/07/21 12:15 Dose: 2 tab Documented by: Prochlorperazine Maleate (Prochlorperazine 5 Mg Tab) 10 mg PO Q6H PRN PRN Reason: Nausea/Vomiting, use 2nd Sodium Chloride (Sodium Chloride 0.9% 10 Ml Syringe) 10 ml FLUSH ASDIRECTED PRN PRN Reason: Keep Vein Open Last Admin: 03/07/21 12:15 Dose: 10 ml Documented by: Sodium Chloride (Sodium Chloride 0.9% 10 Ml Syringe) 10 ml FLUSH ASDIRECTED PRN PRN Reason: Keep Vein Open Sodium Polystyrene Sulfonate (Sodium Polystyrene Sulfonate 15 Gm/60 Ml Susp 60 Ml Bot) 15 gm PO Q8H [facility] Last Admin: 03/09/21 14:49 Dose: 15 gm Documented by: Temazepam (Temazepam 15 Mg Cap) 15 mg PO BEDTIME PRN PRN Reason: Sleep Last Admin: 03/07/21 21:38 Dose: 15 mg Documented by: Vancomycin HCl (Pharmacy To Dose - Vancomycin) 1 dose .XX ASDIRECTED [facility] Vitamin B Complex (Vitamin B Complex Cap) 1 each PO DAILY [facility] Last Admin: 03/09/21 09:09 Dose: 1 each Documented by: - Patient Data Result Diagrams: 03/09/21 06:20 03/09/21 10:12 Kasi Results Last 24 hrs: Microbiology 03/07/21 23:12 Aerobic Blood Culture - Final Blood - Venous - Lab Draw [facility] Anaerobic Blood Culture - Final Proteus Mirabilis 03/07/21 23:07 Aerobic Blood Culture - Final Blood - Venous - Iv Start [facility] Anaerobic Blood Culture - Final [facility] Sepsis Event Note - Evaluation Sepsis Screening Result: No Definite Risk - Problem List & Annotations (1) Hypotension SNOMED Code(s): 64839285 Code(s): I95.9 - HYPOTENSION, UNSPECIFIED Status: Acute (2) CHF (congestive heart failure) SNOMED Code(s): 66125237 Code(s): I50.9 - HEART FAILURE, UNSPECIFIED Status: Acute Priority: High (3) Hyperkalemia, diminished renal excretion SNOMED Code(s): 76652211 Code(s): E87.5 - HYPERKALEMIA Status: Acute Priority: High (4) History of colon cancer SNOMED Code(s): 440326925 Code(s): Z85.038 - PERSONAL HISTORY OF MALIGNANT NEOPLASM OF LARGE INTESTINE Status: Acute Priority: High Onset Date: ~03/08/21 Annotation/Comment:: on chemo treatments . (5) Acute and chronic respiratory failure with hypoxia SNOMED Code(s): 22550254, 521392199 Code(s): J96.21 - ACUTE AND CHRONIC RESPIRATORY FAILURE WITH HYPOXIA Status: Acute Priority: Medium (6) ESRD on hemodialysis SNOMED Code(s): 259437420 Code(s): N18.6 - END STAGE RENAL DISEASE; Z99.2 - DEPENDENCE ON RENAL DIALYSIS Status: Acute Priority: High - Problem List Review Problem List Initiated/Reviewed/Updated: Yes - Assessment Assessment:: EKG interpretation for 03/09/21 at 1109 Normal sinus rhythm Rate 89 Normal axis Normal P wave ST segment depression in leads V3 through V5. Similar ST segment depressions as seen before. Flat T waves in leads III and aVF Possible T wave inversions in leads II and aVF QTC prolongation Prior EKG 03/09/2021 at 0755
== END 2021-03-09 16:00 | DRG 291 ==
LOC: DL.ED 10:47 → UNDOADMIN 13:55 → DL.MS 13:55 → INTOOBSV 14:01 → DL.MS 14:01 → OBSVTOIN 03-08 06:22 → DL.MS 03-08 06:23
PROVIDERS: ADMIT Internal Medicine; ATTEND Family Medicine
PROC: 3E033XZ Introduction of Vasopressor into Peripheral Vein, Percutaneous Approach (ICD-10-PCS; principal; 2021-03-09)
DX: I13.2 Hypertensive heart and chronic kidney disease with heart failure and with stage 5 chronic kidney disease, or end stage renal disease (principal); N18.6 End stage renal disease; J96.21 Acute and chronic respiratory failure with hypoxia; I50.9 Heart failure, unspecified; I50.43 Acute on chronic combined systolic (congestive) and diastolic (congestive) heart failure; E87.79 Other fluid overload; I24.9 Acute ischemic heart disease, unspecified; Z68.44 Body mass index [BMI] 60.0-69.9, adult; C18.9 Malignant neoplasm of colon, unspecified; C78.00 Secondary malignant neoplasm of unspecified lung; C78.7 Secondary malignant neoplasm of liver and intrahepatic bile duct; E87.1 Hypo-osmolality and hyponatremia; I47.1 Supraventricular tachycardia; G89.29 Other chronic pain; I95.9 Hypotension, unspecified; E11.22 Type 2 diabetes mellitus with diabetic chronic kidney disease; D64.9 Anemia, unspecified; Z20.822 Contact with and (suspected) exposure to COVID-19; H91.90 Unspecified hearing loss, unspecified ear; H54.7 Unspecified visual loss; D63.1 Anemia in chronic kidney disease; R06.00 Dyspnea, unspecified; I21.4 Non-ST elevation (NSTEMI) myocardial infarction; E87.5 Hyperkalemia; M79.3 Panniculitis, unspecified; C34.92 Malignant neoplasm of unspecified part of left bronchus or lung; G89.4 Chronic pain syndrome; E66.01 Morbid (severe) obesity due to excess calories; R53.83 Other fatigue; R06.81 Apnea, not elsewhere classified; E11.65 Type 2 diabetes mellitus with hyperglycemia; M19.90 Unspecified osteoarthritis, unspecified site; I25.10 Atherosclerotic heart disease of native coronary artery without angina pectoris; E78.00 Pure hypercholesterolemia, unspecified; M54.9 Dorsalgia, unspecified; Z99.2 Dependence on renal dialysis; Z91.14 Patient's other noncompliance with medication regimen; Z88.8 Allergy status to other drugs, medicaments and biological substances; Z91.012 Allergy to eggs; Z88.6 Allergy status to analgesic agent; Z79.899 Other long term (current) drug therapy; I25.2 Old myocardial infarction; Z95.5 Presence of coronary angioplasty implant and graft; Z28.82 Immunization not carried out because of caregiver refusal; Z91.018 Allergy to other foods
CPT/HCPCS: 36415 ×2; 36600; 71046; 80048; 80053; 80307; 82803; 83605; 83880; 84484 ×3; 85025 ×2; 87040 ×2; 93005; A9270 ×8; J1644; J2543; J3370; J3490; J7040; J7050; J7060; U0002; 71045; 80202; 83735; 84100; 86140; 87077; 87186; 96365; 96368; 96372; 96374; 96375; 99285-25; G0378; J7620-GY

== ENCOUNTER 2021-04-03 09:22 | Inpatient (IN) | payer MEDICARE, MEDICAID ==
[2021-04-03] MEDS ORDERED: Sodium Chloride 0.9% 500 ML IV ONE (10:22)
--- NOTE | 2021-04-03 10:22 | EDM.PDOC ---
ED HPI GENERAL MEDICAL PROBLEM - General Chief Complaint: General Stated Complaint: WEAKNESS Time Seen by Provider: 04/03/21 09:55 Source of Information: Reports: Patient, Old Records, Provider (quality control microbiologist), RN, RN Notes Reviewed History Limitations: Reports: No Limitations - History of Present Illness INITIAL COMMENTS - FREE TEXT/NARRATIVE: Davey is a 70 y/o male with a history of CKD on hemodialysis with a recent diagnosis if bowel cancer with lung mets who presents to the ED from dialysis for hypotension, lethargy, and weakness. Per report from his social services, the patient was only able to tolerate 2kg dialysis treatment, requiring Midodrine 10mg PO during treatment. He states he has not been walking well for the past two days. The patient is currently receiving cancer treatment at [facility] with his last treatment six days ago. Back Pain Score (Numeric/FACES): 8 - Related Data Allergies Allergy/AdvReac Type Severity Reaction Status Date / Time aspirin Allergy Severe Swollen Verified 04/03/21 10:04 Tongue chicken derived Allergy Rash Verified 04/03/21 10:04 egg Allergy Rash Verified 04/03/21 10:04 fish derived Allergy Rash Verified 04/03/21 10:04 ibuprofen Allergy Shortness Verified 04/03/21 10:04 of Breath Past Medical History HEENT History: Reports: Cataract, Hard of Hearing, Impaired Vision Cardiovascular History: Reports: Aneurysm, Heart Failure, High Cholesterol, Hypertension, CA, Stents Other Cardiovascular History: PATIENT REPORTS HTN CONTROLLED BY DIALYSIS NO FURTHER MEDICATIONS ADMIN Respiratory History: Reports: Other (See Below) Other Respiratory History: only sleeps 2 hours a day. Gastrointestinal History: Reports: Cholelithiasis Genitourinary History: Reports: Dialysis, Other (See Below) Other Genitourinary History: Has dialysis tomorrow. Musculoskeletal History: Reports: Arthritis, Back Pain, Chronic Neurological History: Reports: None Psychiatric History: Reports: None Endocrine/Metabolic History: Reports: Diabetes, Type II Hematologic History: Reports: Anemia Immunologic History: Reports: None Oncologic (Cancer) History: Reports: Colon, Lung Other Oncologic History: patient states was diagnosed with stage 4 cancer in both lungs and in his colon during his recent hospitalization for CA January 2021 Dermatologic History: Reports: None - Infectious Disease History Infectious Disease History: Reports: Chicken Pox, Measles, Mumps, TB - Past Surgical History HEENT Surgical History: Reports: Cataract Surgery, Naso-Sinus Surgery, Oral Surgery Cardiovascular Surgical History: Reports: Carotid Endarterectomy, Carotid Stents Other Cardiovascular Surgeries/Procedures: percutaneous cath, angioplasty Respiratory Surgical History: Reports: None GI Surgical History: Reports: Colonoscopy, EGD Male Surgical History: Reports: None Endocrine Surgical History: Reports: None Neurological Surgical History: Reports: None Musculoskeletal Surgical History: Reports: None Dermatological Surgical History: Reports: None Social & Family History - Family History Family Medical History: No Pertinent Family History Cardiac: Reports: Afib, Angina, CAD, Cardiomyopathy, Heart Failure, High Cholesterol, Hypertension, CA, Prior Cardiac Arrest Respiratory: Reports: COPD : Reports: Dialysis, Renal Disease/Insufficiency Musculoskeletal: Reports: Arthritis Neurological: Reports: CVA Endocrine/Metabolic: Reports: Diabetes, type II - Tobacco Use Tobacco Use Status *Q: Former Tobacco User Years of Tobacco use: 30 Packs/Tins Daily: 1 Used Tobacco, but Quit: Yes Month/Year Tobacco Last Used: Sep, 2020 Second Hand Smoke Exposure: No - Caffeine Use Caffeine Use: Reports: Coffee - Living Situation & Occupation Living situation: Reports: Occupation: Retired ED ROS GENERAL - Review of Systems Review Of Systems: Comprehensive ROS is negative, except as noted in HPI. ED EXAM, GENERAL - Physical Exam Exam: See Below Exam Limited By: No Limitations General Appearance: Lethargic, Mild Distress Eye Exam: Bilateral Eye: EOMI, Normal Inspection, PERRL (2mm) Ears: Normal External Exam, Normal Canal, Hearing Grossly Normal, Normal TMs Ear Exam: Bilateral Ear: Auricle Normal, Canal Normal, TM normal Nose: Normal Inspection Throat/Mouth: Normal Voice, No Airway Compromise. No: Normal Oropharynx (Dry mucous membranes) Head: Atraumatic, Normocephalic Neck: Normal Inspection, Supple, Non-Tender, Full Range of Motion. No: Lymphadenopathy (L), Lymphadenopathy (R) Respiratory/Chest: No Respiratory Distress, No Accessory Muscle Use, Chest Non- Tender, Crackles (To bilateral bases). No: Rales, Rhonchi, Stridor Cardiovascular: Normal Peripheral Pulses, Regular Rate, Rhythm, No Gallop, No JVD, No Rub, Systolic Murmur (Greatest to pulmonary area; No radiation in carotids). No: No Edema Peripheral Pulses: 1+: Dorsalis Pedis (L), Dorsalis Pedis (R), 2+: Radial (L), Radial (R) GI/Abdominal: Normal Bowel Sounds, Soft, Non-Tender, No Distention, No Abnormal Bruit, No Mass, Pelvis Stable (Male) Exam: Deferred Rectal (Males) Exam: Deferred Back Exam: Normal Inspection, Full Range of Motion Extremities: Normal Range of Motion, Normal Capillary Refill, Pedal Edema (+3 pitting, bilaterally) Neurological: Alert, Oriented, CN II-XII Intact, Normal Cognition, No Motor/Sensory Deficits, Abnormal Gait (Nonambulatory d/t weakness) Psychiatric: Normal Mood, Flat Affect Skin Exam: Warm, Dry, Intact, No Rash, Pallor. No: Cyanosis, Jaundice, Mottled Lymphatic: No Adenopathy #1 Interpretation EKG Date: 04/03/21 Time: 10:17 Rhythm: Other (SVT) Rate (Beats/Min): 147 [place]: Normal P-Wave: Present QRS: Normal ST-T: Depressed QT: Normal PA/PQ Interval: 0.164 Comparison: Change From Previous EKG (03/09/21) EKG Interpretation Comments: SVT with PVCs; No evidence of acute myocardial ischemia Course - Vital Signs Last Recorded V/S: Last Vital Signs Temp 101.2 F H 04/03/21 16:00 Pulse 56 L 04/03/21 16:00 Resp 24 H 04/03/21 16:00 BP 72/34 L 04/03/21 16:00 Pulse Ox 89 L 04/03/21 16:00 - Orders/Labs/Meds Labs: Laboratory Tests 04/03/21 04/03/21 04/03/21 Range/Units 10:06 10:06 10:06 WBC 6.2 (5.0-10.0) 10^3/uL RBC 3.92 L (4.6-6.2) 10^6/uL Hgb 10.8 L D (14.0-18.0) g/dL Hct 33.8 L (40.0-54.0) % MCV 86.2 (80-100) fL MCH 27.6 (27.0-34.0) pg MCHC 32.0 L (33.0-35.0) g/dL Plt Count 117 L (150-450) 10^3/uL Neut % (Auto) 96.2 H (42.2-75.2) % Lymph % (Auto) 2.9 L (20.5-50.1) % Parker % (Auto) 0.7 L (2-8) % Eos % (Auto) 0.0 L (1.0-3.0) % Baso % (Auto) 0.2 (0.0-1.0) % Sodium 136 (136-145) mmol/L Potassium 3.6 D (3.5-5.1) mmol/L Chloride 95 L (98-107) mmol/L Carbon Dioxide 22 (21-32) mmol/L Anion Gap 22.6 H (7-13) mEq/L BUN 29 H D (7-18) mg/dL Creatinine 3.95 H D (0.70-1.30) mg/dL Est Cr Clr Drug Dosing 18.22 mL/min Estimated GFR (MDRD) 15 BUN/Creatinine Ratio 7.3 (No establ ref range) Glucose 238 H (70-99) mg/dL Lactic Acid 7.8 H* (0.4-2.0) mmol/L Calcium 8.4 L (8.5-10.1) mg/dL Total Bilirubin 0.9 (0.2-1.0) mg/dL AST 31 (15-37) U/L ALT 39 (16-63) U/L Alkaline Phosphatase 286 H (46-116) U/L Troponin I High Sens 94 H* (<=76) pg/mL C-Reactive Protein < 0.2 (0.0-0.9) mg/dL B-Natriuretic Peptide > 5000 H (0-100) pg/ml Total Protein 7.5 (6.4-8.2) g/dL Albumin 2.5 L (3.4-5.0) g/dL Globulin 5.0 Albumin/Globulin Ratio 0.50 Urine Color (YELLOW) Urine Appearance (CLEAR) Urine pH (5.0-9.0) Ur Specific [place] (1.005-1.030) Urine Protein (NEGATIVE) Urine Glucose (UA) (NEGATIVE) Urine Ketones (NEGATIVE) Urine Occult Blood (NEGATIVE) Urine Nitrite (NEGATIVE) Urine Bilirubin (NEGATIVE) Urine Urobilinogen (0.2-1.0) mg/dL Ur Leukocyte Esterase (NEGATIVE) Urine RBC (0-5) /HPF Urine WBC (0-5/HPF) /HPF Ur Epithelial Cells (NOT SEEN) /HPF Urine Bacteria (0-FEW/HPF) /HPF Urine Mucus (NOT SEEN) /LPF Urine Opiates Screen (NEGATIVE) Ur Oxycodone Screen (NEGATIVE) Urine Methadone Screen (NEGATIVE) Ur Barbiturates Screen (NEGATIVE) U Tricyclic Antidepress (NEGATIVE) Ur Phencyclidine Scrn (NEGATIVE) Ur Amphetamine Screen (NEGATIVE) U Methamphetamines Scrn (NEGATIVE) Urine MDMA Screen (NEGATIVE) U Benzodiazepines Scrn (NEGATIVE) Urine Cocaine Screen (NEGATIVE) U Marijuana (THC) Screen (NEGATIVE) Ethyl Alcohol < 3 (0) mg/dL Ketones SARS CoV-2 RNA Rapid CLINT (NEGATIVE) 04/03/21 04/03/21 04/03/21 Range/Units 10:06 11:19 11:19 WBC (5.0-10.0) 10^3/uL RBC (4.6-6.2) 10^6/uL Hgb (14.0-18.0) g/dL Hct (40.0-54.0) % MCV (80-100) fL MCH (27.0-34.0) pg MCHC (33.0-35.0) g/dL Plt Count (150-450) 10^3/uL Neut % (Auto) (42.2-75.2) % Lymph % (Auto) (20.5-50.1) % Parker % (Auto) (2-8) % Eos % (Auto) (1.0-3.0) % Baso % (Auto) (0.0-1.0) % Sodium (136-145) mmol/L Potassium (3.5-5.1) mmol/L Chloride (98-107) mmol/L Carbon Dioxide (21-32) mmol/L Anion Gap (7-13) mEq/L BUN (7-18) mg/dL Creatinine (0.70-1.30) mg/dL Est Cr Clr Drug Dosing mL/min Estimated GFR (MDRD) BUN/Creatinine Ratio (No establ ref range) Glucose (70-99) mg/dL Lactic Acid (0.4-2.0) mmol/L Calcium (8.5-10.1) mg/dL Total Bilirubin (0.2-1.0) mg/dL AST (15-37) U/L ALT (16-63) U/L Alkaline Phosphatase (46-116) U/L Troponin I High Sens (<=76) pg/mL C-Reactive Protein (0.0-0.9) mg/dL B-Natriuretic Peptide (0-100) pg/ml Total Protein (6.4-8.2) g/dL Albumin (3.4-5.0) g/dL Globulin Albumin/Globulin Ratio Urine Color Yellow (YELLOW) Urine Appearance Slightly cloudy (CLEAR) Urine pH 7.0 (5.0-9.0) Ur Specific [place] 1.015 (1.005-1.030) Urine Protein 100 H (NEGATIVE) Urine Glucose (UA) 500 H (NEGATIVE) Urine Ketones Negative (NEGATIVE) Urine Occult Blood Trace-intact H (NEGATIVE) Urine Nitrite Negative (NEGATIVE) Urine Bilirubin Negative (NEGATIVE) Urine Urobilinogen 0.2 (0.2-1.0) mg/dL Ur Leukocyte Esterase Negative (NEGATIVE) Urine RBC 0-5 (0-5) /HPF Urine WBC 0-5 (0-5/HPF) /HPF Ur Epithelial Cells Rare (NOT SEEN) /HPF Urine Bacteria Rare (0-FEW/HPF) /HPF Urine Mucus Few H (NOT SEEN) /LPF Urine Opiates Screen Negative (NEGATIVE) Ur Oxycodone Screen Negative (NEGATIVE) Urine Methadone Screen Negative (NEGATIVE) Ur Barbiturates Screen Negative (NEGATIVE) U Tricyclic Antidepress Negative (NEGATIVE) Ur Phencyclidine Scrn Negative (NEGATIVE) Ur Amphetamine Screen Negative (NEGATIVE) U Methamphetamines Scrn Negative (NEGATIVE) Urine MDMA Screen Negative (NEGATIVE) U Benzodiazepines Scrn Negative (NEGATIVE) Urine Cocaine Screen Negative (NEGATIVE) U Marijuana (THC) Screen Negative (NEGATIVE) Ethyl Alcohol (0) mg/dL Ketones Negative SARS CoV-2 RNA Rapid CLINT (NEGATIVE) 04/03/21 04/03/21 Range/Units 13:58 14:17 WBC (5.0-10.0) 10^3/uL RBC (4.6-6.2) 10^6/uL Hgb (14.0-18.0) g/dL Hct (40.0-54.0) % MCV (80-100) fL MCH (27.0-34.0) pg MCHC (33.0-35.0) g/dL Plt Count (150-450) 10^3/uL Neut % (Auto) (42.2-75.2) % Lymph % (Auto) (20.5-50.1) % Parker % (Auto) (2-8) % Eos % (Auto) (1.0-3.0) % Baso % (Auto) (0.0-1.0) % Sodium (136-145) mmol/L Potassium (3.5-5.1) mmol/L Chloride (98-107) mmol/L Carbon Dioxide (21-32) mmol/L Anion Gap (7-13) mEq/L BUN (7-18) mg/dL Creatinine (0.70-1.30) mg/dL Est Cr Clr Drug Dosing mL/min Estimated GFR (MDRD) BUN/Creatinine Ratio (No establ ref range) Glucose (70-99) mg/dL Lactic Acid 3.9 H* (0.4-2.0) mmol/L Calcium (8.5-10.1) mg/dL Total Bilirubin (0.2-1.0) mg/dL AST (15-37) U/L ALT (16-63) U/L Alkaline Phosphatase (46-116) U/L Troponin I High Sens (<=76) pg/mL C-Reactive Protein (0.0-0.9) mg/dL B-Natriuretic Peptide (0-100) pg/ml Total Protein (6.4-8.2) g/dL Albumin (3.4-5.0) g/dL Globulin Albumin/Globulin Ratio Urine Color (YELLOW) Urine Appearance (CLEAR) Urine pH (5.0-9.0) Ur Specific [place] (1.005-1.030) Urine Protein (NEGATIVE) Urine Glucose (UA) (NEGATIVE) Urine Ketones (NEGATIVE) Urine Occult Blood (NEGATIVE) Urine Nitrite (NEGATIVE) Urine Bilirubin (NEGATIVE) Urine Urobilinogen (0.2-1.0) mg/dL Ur Leukocyte Esterase (NEGATIVE) Urine RBC (0-5) /HPF Urine WBC (0-5/HPF) /HPF Ur Epithelial Cells (NOT SEEN) /HPF Urine Bacteria (0-FEW/HPF) /HPF Urine Mucus (NOT SEEN) /LPF Urine Opiates Screen (NEGATIVE) Ur Oxycodone Screen (NEGATIVE) Urine Methadone Screen (NEGATIVE) Ur Barbiturates Screen (NEGATIVE) U Tricyclic Antidepress (NEGATIVE) Ur Phencyclidine Scrn (NEGATIVE) Ur Amphetamine Screen (NEGATIVE) U Methamphetamines Scrn (NEGATIVE) Urine MDMA Screen (NEGATIVE) U Benzodiazepines Scrn (NEGATIVE) Urine Cocaine Screen (NEGATIVE) U Marijuana (THC) Screen (NEGATIVE) Ethyl Alcohol (0) mg/dL Ketones SARS CoV-2 RNA Rapid CLINT Negative (NEGATIVE) Meds: Medications Discontinued Medications Generic Name Dose Route Start Last Admin Trade Name Freq PRN Reason Stop Dose Admin Acetaminophen 650 mg 04/03/21 16:00 Acetaminophen 650 Mg Supp RECTAL Q3H PRN Pain/Fever Baclofen 10 mg 04/03/21 16:00 Baclofen 10 Mg Tab PO QID PRN Muscle Spasm - Painful Diphenhydramine HCl 25 mg 04/03/21 16:25 Diphenhydramine 50 Mg/Ml Sdv IVPUSH Q6H PRN Itching Diphenhydramine HCl 25 mg 04/03/21 16:25 Diphenhydramine 25 Mg Tab PO Q6H PRN Itching Sodium Chloride 500 mls @ 999 mls/hr 04/03/21 10:22 04/03/21 10:30 Normal Saline IV 04/03/21 10:52 999 mls/hr .BOLUS ONE Administration Lorazepam 1 mg 04/03/21 16:00 Lorazepam 2 Mg/Ml Sdv IV Q4H PRN Agitation Meclizine HCl 25 mg 04/03/21 16:00 Meclizine 12.5 Mg Tab PO Q6H PRN Nausea Metoprolol Tartrate 5 mg 04/03/21 10:31 04/03/21 10:37 Metoprolol Tartrate 5 Mg/5 Ml Sdv IVPUSH 04/03/21 10:32 5 mg ONETIME ONE Administration Morphine Sulfate 4 mg 04/03/21 14:50 04/03/21 15:26 Morphine 2 Mg/Ml Syringe IVPUSH 04/03/21 14:51 4 mg ONETIME ONE Administration Morphine Sulfate 0 mg 04/03/21 16:30 04/03/21 16:46 Morphine Pf 30 Mg/30 Ml Canteen Operator Vial IV 30 mg ASDIRECTED PRN Administration Other Protocol Naloxone HCl 0.04 mg 04/03/21 16:25 Naloxone 2 Mg/2 Ml Syringe IVPUSH Q3M PRN Respiratory Depression Ondansetron HCl 8 mg 04/03/21 16:00 Ondansetron 4 Mg/2 Ml Sdv IVPUSH Q6H PRN Nausea/Vomiting Ondansetron HCl 4 mg 04/03/21 16:25 Ondansetron 4 Mg/2 Ml Sdv IVPUSH Q6H PRN Nausea/Vomiting Oxycodone HCl 10 mg 04/03/21 16:12 Oxycodone 5 Mg Tab PO Q4H PRN pain Polyethylene Glycol 17 gm 04/03/21 16:00 Polyethylene Glycol 3350 Powder 17 Gm Packet PO DAILY PRN Constipation Sodium Chloride 10 ml 04/03/21 16:00 Sodium Chloride 0.9% 10 Ml Syringe FLUSH ASDIRECTED PRN Keep Vein Open - Re-Assessments/Exams Free Text/Narrative Re-Assessment/Exam: 04/03/21 NS 500cc bolus initiated while labs sent. Code status discussed with patient, he has requested DNR/DNI. Case discussed with Dr. Truong who kindly accepted patient for inpatient admission. Findings of examination, lab work, imaging, and discussion with Dr. Truong reviewed with patient. Patient verbalized understanding and agreement with the plan of care. Departure - Departure Time of Disposition: 15:30 Disposition: Admitted As Inpatient 67 Clinical Impression: Weakness, History of lung cancer, History of colon cancer, Elevated brain natriuretic peptide (BNP) level, ESRD (end stage renal disease) on dialysis, SVT (supraventricular tachycardia) Hypotension Qualifiers: Hypotension type: unspecified hypotension type Qualified Code(s): I95.9 - Hypotension, unspecified CHF (congestive heart failure) Qualifiers: Heart failure type: combined systolic and diastolic Heart failure chronicity: acute on chronic Qualified Code(s): I50.43 - Acute on chronic combined systolic (congestive) and diastolic (congestive) heart failure - Discharge Information Sepsis Event Note (ED) - Evaluation Sepsis Screening Result: No Definite Risk
[2021-04-03] MEDS ORDERED: Metoprolol Tartrate 5 MG/5 ML SDV IVPUSH ONE (10:31)
[2021-04-03 10:41] LABS: ANION GAP 22.6 mEq/L (7-13); CHLORIDE,CL 95 mmol/L (98-107); SODIUM,NA 136 mmol/L (136-145)
[2021-04-03 11:37] LABS: AMPHETAMINES,URINE NEGATIVE (NEGATIVE); BARBITURATES,URINE NEGATIVE (NEGATIVE); BENZODIAZEPINE,URINE NEGATIVE (NEGATIVE); MDMA (ECSTASY), URINE NEGATIVE (NEGATIVE); METHADONE,URINE NEGATIVE (NEGATIVE); METHAMPHETAMINES,URINE NEGATIVE (NEGATIVE); OPIATES,URINE NEGATIVE (NEGATIVE); OXYCODONE,URINE NEGATIVE (NEGATIVE); PHENCYCLIDINE,URINE NEGATIVE (NEGATIVE); TCA,URINE NEGATIVE (NEGATIVE)
--- NOTE | 2021-04-03 12:54 | CR ---
EXAMINATION: Chest 1V Frontal SEX: Male AGE: 70 years CLINICAL HISTORY: 70-year-old male with history "cardiomegaly; ZAYNAB nodule; RLL consolidation" on recent CXR 08 March 2021. Rule out CHF. Interpretation: 1. Right supraclavicular central venous line; oxygen cannula; external threat monitoring analyst leads. 2. Generally poor inspiratory effort and scoliosis accentuating the cardiac silhouette which is not increased. 3. No new pulmonary vascular congestion, cephalization of flow, alveolar edema or dependent pleural fluid accumulation. 4. Old trauma and extensive pleural reactive changes (calcifications) right lung base. "RLL consolidation" has cleared. 5. No new lung mass, alveolar consolidation, or peripheral "groundglass" interstitial lung densities. 6. No pneumothorax or pneumomediastinum. No free subdiaphragmatic air. CONCLUSION: No acute new cardiopulmonary abnormality. No sign of CHF or pneumonia.
[2021-04-03] MEDS ORDERED: Morphine 2 MG/ML SYRINGE IVPUSH ONE (14:50)
--- NOTE | 2021-04-03 15:50 | PCM.HP ---
H&P History of Present Illness - General Date of Service: 04/03/21 Admit Problem/Dx: Admission Diagnosis/Problem Admission Diagnosis/Problem severe symptomatic Hypotension, lactic acidosis Source of Information: Patient, Provider, RN History Limitations: Reports: No Limitations - History of Present Illness Initial Comments - Free Text/Narative: Davey Zavala is a 70 year old man with PMH significant for ESRD on HD, DMII, essential HTN, CHF and recent diagnosis of bowel cancer with lung mets who presented to the ED From HD today after becoming severely hypotensive. Per report from his card cutter, the patient was only able to tolerate 2kg dialysis treatment, requiring Midodrine 10mg PO during treatment. He states he has not been walking well for the past two days. The patient is currently receiving cancer treatment at [facility] with his last treatment six days ago. He reports 8/10 pain in his right posterior chest wall and lower back. he has associated generalized weakness, difficulty walking, lethargy and anorexia that have been worsening daily. He had previously been on hospice but reportedly went off as family requested that he "fight". He no longer thinks that this is the direction he wants to keep fighting and would like family to come to the hospital for a care conference to discuss the possibility of him "fighting" for quality of life and discontinuing all measures other than comfort. Onset of Symptoms: Reports: Gradual Duration of Symptoms: Reports: Week(s):, Getting Worse Severity: Severe Improves with: Reports: Medication Worsens with: Reports: Movement Context: Reports: Other (metastatic cancer) Associated Symptoms: Reports: Loss of Appetite, Weakness Back Pain Score (Numeric/FACES): 8 - Related Data Allergies/Adverse Reactions: Allergies Allergy/AdvReac Type Severity Reaction Status Date / Time aspirin Allergy Severe Swollen Verified 04/03/21 10:04 Tongue chicken derived Allergy Rash Verified 04/03/21 10:04 egg Allergy Rash Verified 04/03/21 10:04 fish derived Allergy Rash Verified 04/03/21 10:04 ibuprofen Allergy Shortness Verified 04/03/21 10:04 of Breath Home Medications: Home Meds atorvaSTATin [Lipitor] 20 mg PO BEDTIME 12/02/15 [History] Vitamin B Comp W-C/FA/Zinc [Anamaria B Strong with C & Zinc Tb] 1 each PO DAILY 08/04/20 [History] Calcium Carbonate [Tums] 500 mg PO TIDMEALS 01/06/21 [History] Bumetanide [Bumex] 2 mg PO DAILY 03/07/21 [History] Calcium Acetate [PhosLo] 3,335 mg PO TIDMEALS 03/07/21 [History] Calcium Acetate [PhosLo] 667 mg PO .WITH SNACKS 03/07/21 [History] Midodrine 10 mg PO ASDIRECTED 03/07/21 [History] Ondansetron [Zofran] 8 mg PO Q8H PRN 03/07/21 [History] Albuterol Sulfate [Proair Digihaler] 90 mcg IH 03/08/21 [History] Acetaminophen [Tylenol] 650 mg PO Q4H PRN tablet 03/09/21 [Rx] Docusate Sodium [Colace] 100 mg PO BID PRN cap 03/09/21 [Rx] Heparin Sodium 5,000 units SUBCUT Q8HR vial 03/09/21 [Rx] Norepinephrine [Levophed] 4 mg IV TITRATE sdv 03/09/21 [Rx] Sodium Polystyrene Sulfonate [Kayexalate] 15 gm PO Q8H bottle 03/09/21 [Rx] Past Medical History HEENT History: Reports: Cataract, Hard of Hearing, Impaired Vision Cardiovascular History: Reports: Aneurysm, Heart Failure, High Cholesterol, Hypertension, GA, Stents Other Cardiovascular History: PATIENT REPORTS HTN CONTROLLED BY DIALYSIS NO FURTHER MEDICATIONS ADMIN Respiratory History: Reports: Other (See Below) Other Respiratory History: only sleeps 2 hours a day. Gastrointestinal History: Reports: Cholelithiasis Genitourinary History: Reports: Dialysis, Other (See Below) Other Genitourinary History: Has dialysis tomorrow. Musculoskeletal History: Reports: Arthritis, Back Pain, Chronic Neurological History: Reports: None Psychiatric History: Reports: None Endocrine/Metabolic History: Reports: Diabetes, Type II Hematologic History: Reports: Anemia Immunologic History: Reports: None Oncologic (Cancer) History: Reports: Colon, Lung Other Oncologic History: patient states was diagnosed with stage 4 cancer in both lungs and in his colon during his recent hospitalization for GA January 2021 Dermatologic History: Reports: None - Infectious Disease History Infectious Disease History: Reports: Chicken Pox, Measles, Mumps, TB - Past Surgical History HEENT Surgical History: Reports: Cataract Surgery, Naso-Sinus Surgery, Oral Surgery Cardiovascular Surgical History: Reports: Carotid Endarterectomy, Carotid Stents Other Cardiovascular Surgeries/Procedures: percutaneous cath, angioplasty Respiratory Surgical History: Reports: None GI Surgical History: Reports: Colonoscopy, EGD Male Surgical History: Reports: None Endocrine Surgical History: Reports: None Neurological Surgical History: Reports: None Musculoskeletal Surgical History: Reports: None Dermatological Surgical History: Reports: None Social & Family History - Family History Family Medical History: No Pertinent Family History Cardiac: Reports: Afib, Angina, CAD, Cardiomyopathy, Heart Failure, High Cholesterol, Hypertension, GA, Prior Cardiac Arrest Respiratory: Reports: COPD : Reports: Dialysis, Renal Disease/Insufficiency Musculoskeletal: Reports: Arthritis Neurological: Reports: CVA Endocrine/Metabolic: Reports: Diabetes, type II - Tobacco Use Tobacco Use Status *Q: Former Tobacco User Years of Tobacco use: 30 Packs/Tins Daily: 1 Used Tobacco, but Quit: Yes Month/Year Tobacco Last Used: Sep, 2020 Second Hand Smoke Exposure: No - Caffeine Use Caffeine Use: Reports: Coffee - Living Situation & Occupation Living situation: Reports: Occupation: Retired H&P Review of Systems - Review of Systems: Review Of Systems: See Below General: Reports: Fever, Malaise, Weakness, Fatigue, Decreased Appetite, Weight Loss HEENT: Reports: No Symptoms Pulmonary: Reports: Pleuritic Chest Pain, Cough, Hemoptysis. Denies: Wheezing Cardiovascular: Reports: Dyspnea on Exertion, Lightheadedness, Blood Pressure Problem. Denies: Chest Pain Gastrointestinal: Reports: Anorexia Genitourinary: Reports: No Symptoms Musculoskeletal: Reports: Other (generalized myalgias) Skin: Reports: Change in Color (swanson) Psychiatric: Reports: No Symptoms Neurological: Reports: Difficulty Walking Hematologic/Lymphatic: Reports: No Symptoms Immunologic: Reports: No Symptoms Exam - Exam Exam: See Below - Vital Signs Vital Signs: Last Vital Signs Temp 99.8 F 04/03/21 09:55 Pulse 140 H 04/03/21 10:37 Resp 20 04/03/21 09:55 BP 99/62 04/03/21 10:37 Pulse Ox 91 L 04/03/21 09:57 Weight: 201 lb 8 oz - Exam Quality Assessment: Supplemental Oxygen. No: Urinary Catheter, DVT Prophylaxis General: Alert, Oriented, Cooperative, Severe Distress HEENT: EOMI, Pupils Equal, Pupils Reactive. No: Scleral Icterus Neck: Supple Lungs: Decreased Breath Sounds. No: Rales GI/Abdominal Exam: Soft, Non-Tender (Male) Exam: Deferred Rectal (Males) Exam: Deferred Back Exam: Full Range of Motion Extremities: Normal Range of Motion, Non-Tender, Pedal Edema (2+ to BLE) Neuro Extensive - Mental Status: Oriented x3, Normal Mood/Affect Psychiatric: Normal Affect, Normal Mood - Patient Data Lab Results Last 24 hrs: Laboratory Results - last 24 hr 04/03/21 04/03/21 04/03/21 Range/Units 10:06 10:06 10:06 WBC 6.2 (5.0-10.0) 10^3/uL RBC 3.92 L (4.6-6.2) 10^6/uL Hgb 10.8 L D (14.0-18.0) g/dL Hct 33.8 L (40.0-54.0) % MCV 86.2 (80-100) fL MCH 27.6 (27.0-34.0) pg MCHC 32.0 L (33.0-35.0) g/dL Plt Count 117 L (150-450) 10^3/uL Neut % (Auto) 96.2 H (42.2-75.2) % Lymph % (Auto) 2.9 L (20.5-50.1) % [place] % (Auto) 0.7 L (2-8) % Eos % (Auto) 0.0 L (1.0-3.0) % Baso % (Auto) 0.2 (0.0-1.0) % Sodium 136 (136-145) mmol/L Potassium 3.6 D (3.5-5.1) mmol/L Chloride 95 L (98-107) mmol/L Carbon Dioxide 22 (21-32) mmol/L Anion Gap 22.6 H (7-13) mEq/L BUN 29 H D (7-18) mg/dL Creatinine 3.95 H D (0.70-1.30) mg/dL Est Cr Clr Drug Dosing 18.22 mL/min Estimated GFR (MDRD) 15 BUN/Creatinine Ratio 7.3 (No establ ref range) Glucose 238 H (70-99) mg/dL Lactic Acid 7.8 H* (0.4-2.0) mmol/L Calcium 8.4 L (8.5-10.1) mg/dL Total Bilirubin 0.9 (0.2-1.0) mg/dL AST 31 (15-37) U/L ALT 39 (16-63) U/L Alkaline Phosphatase 286 H (46-116) U/L Troponin I High Sens 94 H* (<=76) pg/mL C-Reactive Protein < 0.2 (0.0-0.9) mg/dL B-Natriuretic Peptide > 5000 H (0-100) pg/ml Total Protein 7.5 (6.4-8.2) g/dL Albumin 2.5 L (3.4-5.0) g/dL Globulin 5.0 Albumin/Globulin Ratio 0.50 Urine Color (YELLOW) Urine Appearance (CLEAR) Urine pH (5.0-9.0) Ur Specific [place] (1.005-1.030) Urine Protein (NEGATIVE) Urine Glucose (UA) (NEGATIVE) Urine Ketones (NEGATIVE) Urine Occult Blood (NEGATIVE) Urine Nitrite (NEGATIVE) Urine Bilirubin (NEGATIVE) Urine Urobilinogen (0.2-1.0) mg/dL Ur Leukocyte Esterase (NEGATIVE) Urine RBC (0-5) /HPF Urine WBC (0-5/HPF) /HPF Ur Epithelial Cells (NOT SEEN) /HPF Urine Bacteria (0-FEW/HPF) /HPF Urine Mucus (NOT SEEN) /LPF Urine Opiates Screen (NEGATIVE) Ur Oxycodone Screen (NEGATIVE) Urine Methadone Screen (NEGATIVE) Ur Barbiturates Screen (NEGATIVE) U Tricyclic Antidepress (NEGATIVE) Ur Phencyclidine Scrn (NEGATIVE) Ur Amphetamine Screen (NEGATIVE) U Methamphetamines Scrn (NEGATIVE) Urine MDMA Screen (NEGATIVE) U Benzodiazepines Scrn (NEGATIVE) Urine Cocaine Screen (NEGATIVE) U Marijuana (THC) Screen (NEGATIVE) Ethyl Alcohol < 3 (0) mg/dL Ketones SARS CoV-2 RNA Rapid CLINT (NEGATIVE) 04/03/21 04/03/21 04/03/21 Range/Units 10:06 11:19 11:19 WBC (5.0-10.0) 10^3/uL RBC (4.6-6.2) 10^6/uL Hgb (14.0-18.0) g/dL Hct (40.0-54.0) % MCV (80-100) fL MCH (27.0-34.0) pg MCHC (33.0-35.0) g/dL Plt Count (150-450) 10^3/uL Neut % (Auto) (42.2-75.2) % Lymph % (Auto) (20.5-50.1) % [place] % (Auto) (2-8) % Eos % (Auto) (1.0-3.0) % Baso % (Auto) (0.0-1.0) % Sodium (136-145) mmol/L Potassium (3.5-5.1) mmol/L Chloride (98-107) mmol/L Carbon Dioxide (21-32) mmol/L Anion Gap (7-13) mEq/L BUN (7-18) mg/dL Creatinine (0.70-1.30) mg/dL Est Cr Clr Drug Dosing mL/min Estimated GFR (MDRD) BUN/Creatinine Ratio (No establ ref range) Glucose (70-99) mg/dL Lactic Acid (0.4-2.0) mmol/L Calcium (8.5-10.1) mg/dL Total Bilirubin (0.2-1.0) mg/dL AST (15-37) U/L ALT (16-63) U/L Alkaline Phosphatase (46-116) U/L Troponin I High Sens (<=76) pg/mL C-Reactive Protein (0.0-0.9) mg/dL B-Natriuretic Peptide (0-100) pg/ml Total Protein (6.4-8.2) g/dL Albumin (3.4-5.0) g/dL Globulin Albumin/Globulin Ratio Urine Color Yellow (YELLOW) Urine Appearance Slightly cloudy (CLEAR) Urine pH 7.0 (5.0-9.0) Ur Specific [place] 1.015 (1.005-1.030) Urine Protein 100 H (NEGATIVE) Urine Glucose (UA) 500 H (NEGATIVE) Urine Ketones Negative (NEGATIVE) Urine Occult Blood Trace-intact H (NEGATIVE) Urine Nitrite Negative (NEGATIVE) Urine Bilirubin Negative (NEGATIVE) Urine Urobilinogen 0.2 (0.2-1.0) mg/dL Ur Leukocyte Esterase Negative (NEGATIVE) Urine RBC 0-5 (0-5) /HPF Urine WBC 0-5 (0-5/HPF) /HPF Ur Epithelial Cells Rare (NOT SEEN) /HPF Urine Bacteria Rare (0-FEW/HPF) /HPF Urine Mucus Few H (NOT SEEN) /LPF Urine Opiates Screen Negative (NEGATIVE) Ur Oxycodone Screen Negative (NEGATIVE) Urine Methadone Screen Negative (NEGATIVE) Ur Barbiturates Screen Negative (NEGATIVE) U Tricyclic Antidepress Negative (NEGATIVE) Ur Phencyclidine Scrn Negative (NEGATIVE) Ur Amphetamine Screen Negative (NEGATIVE) U Methamphetamines Scrn Negative (NEGATIVE) Urine MDMA Screen Negative (NEGATIVE) U Benzodiazepines Scrn Negative (NEGATIVE) Urine Cocaine Screen Negative (NEGATIVE) U Marijuana (THC) Screen Negative (NEGATIVE) Ethyl Alcohol (0) mg/dL Ketones Negative SARS CoV-2 RNA Rapid CLINT (NEGATIVE) 04/03/21 04/03/21 Range/Units 13:58 14:17 WBC (5.0-10.0) 10^3/uL RBC (4.6-6.2) 10^6/uL Hgb (14.0-18.0) g/dL Hct (40.0-54.0) % MCV (80-100) fL MCH (27.0-34.0) pg MCHC (33.0-35.0) g/dL Plt Count (150-450) 10^3/uL Neut % (Auto) (42.2-75.2) % Lymph % (Auto) (20.5-50.1) % [place] % (Auto) (2-8) % Eos % (Auto) (1.0-3.0) % Baso % (Auto) (0.0-1.0) % Sodium (136-145) mmol/L Potassium (3.5-5.1) mmol/L Chloride (98-107) mmol/L Carbon Dioxide (21-32) mmol/L Anion Gap (7-13) mEq/L BUN (7-18) mg/dL Creatinine (0.70-1.30) mg/dL Est Cr Clr Drug Dosing mL/min Estimated GFR (MDRD) BUN/Creatinine Ratio (No establ ref range) Glucose (70-99) mg/dL Lactic Acid 3.9 H* (0.4-2.0) mmol/L Calcium (8.5-10.1) mg/dL Total Bilirubin (0.2-1.0) mg/dL AST (15-37) U/L ALT (16-63) U/L Alkaline Phosphatase (46-116) U/L Troponin I High Sens (<=76) pg/mL C-Reactive Protein (0.0-0.9) mg/dL B-Natriuretic Peptide (0-100) pg/ml Total Protein (6.4-8.2) g/dL Albumin (3.4-5.0) g/dL Globulin Albumin/Globulin Ratio Urine Color (YELLOW) Urine Appearance (CLEAR) Urine pH (5.0-9.0) Ur Specific [place] (1.005-1.030) Urine Protein (NEGATIVE) Urine Glucose (UA) (NEGATIVE) Urine Ketones (NEGATIVE) Urine Occult Blood (NEGATIVE) Urine Nitrite (NEGATIVE) Urine Bilirubin (NEGATIVE) Urine Urobilinogen (0.2-1.0) mg/dL Ur Leukocyte Esterase (NEGATIVE) Urine RBC (0-5) /HPF Urine WBC (0-5/HPF) /HPF Ur Epithelial Cells (NOT SEEN) /HPF Urine Bacteria (0-FEW/HPF) /HPF Urine Mucus (NOT SEEN) /LPF Urine Opiates Screen (NEGATIVE) Ur Oxycodone Screen (NEGATIVE) Urine Methadone Screen (NEGATIVE) Ur Barbiturates Screen (NEGATIVE) U Tricyclic Antidepress (NEGATIVE) Ur Phencyclidine Scrn (NEGATIVE) Ur Amphetamine Screen (NEGATIVE) U Methamphetamines Scrn (NEGATIVE) Urine MDMA Screen (NEGATIVE) U Benzodiazepines Scrn (NEGATIVE) Urine Cocaine Screen (NEGATIVE) U Marijuana (THC) Screen (NEGATIVE) Ethyl Alcohol (0) mg/dL Ketones SARS CoV-2 RNA Rapid CLINT Negative (NEGATIVE) Result Diagrams: 04/03/21 10:06 04/03/21 10:06 Problem List Initiated/Reviewed/Updated: Yes Orders Last 24hrs: Active Orders 24 hr Category Date Time Status Admission Diagnosis [ADT] Stat ADT 04/03/21 14:52 Ordered Admission Status [Patient Status] [ADT] Routine ADT 04/03/21 14:52 Active Assessment/Plan Comment:: colon cancer with lung mets on chemo and radiation ESRD on HD acute on chronic combined systolic and diastolic heart failure DMII with peripheral neuropathy severe symptomatic hypotension Lactic acidosis possible developing sepsis obesity: BMI 31 essential HTN - pt currently receiving treatment for his metastatic colon cancer. he had been on hospice initially but due to family request was attempting to try aggressive treatment. - severe symptomatic hypotension during HD. transferred to ED. Lactic acid 7.8, trop 94, BNP >5000 - 2L IVF given in ED after which pt developed acute heart failure. Plan: - care conference with sister markus, son darryl (by phone), cyanide case hardener and myself. decision made to pursue comfort cares only and consider hospice referral. Vamshi cody contacted for last rights. comfort care order set with PRN oxy IR and PRN ativan ordered. morphine [employer] ordered to control cancer related pain and shortness of breath associated with acute on chronic heart failure exacerbation. hospitality fco at bedside. family friend, father Tevin Jose was contacted and he will drive to from [place] tomorrow morning if pt has not overnight. Charge nurse will need to call [phone] to update him at 0945 tomorrow morning. family present at bedside. Pt finally comfortable and no longer writhing in pain. No other acute concerns tonight. likely end of life inpatient as decision was also made to stop HD. all home meds reviewed with patient prior to discontinuing. regular diet for comfort. Code status/DNR discussion today with pt opting for DNR/DNI status. DVT prophylaxis: none given comfort care only Code status: DNR/ DNI
[2021-04-03] MEDS ORDERED: Polyethylene Glycol 3350 Powder 17 GM Packet PO PRN (16:00)
[2021-04-03] MEDS ORDERED: Meclizine 12.5 MG Tab PO PRN (16:00)
[2021-04-03] MEDS ORDERED: Sodium Chloride 0.9% 10 ML Syringe FLUSH PRN (16:00)
[2021-04-03] MEDS ORDERED: Ondansetron 4 MG/2 ML SDV IVPUSH PRN ×2 (16:00→16:25)
[2021-04-03] MEDS ORDERED: LORazepam 2 MG/ML SDV IV PRN (16:00)
[2021-04-03] MEDS ORDERED: Baclofen 10 MG Tab PO PRN (16:00)
[2021-04-03] MEDS ORDERED: Acetaminophen 650 MG Supp RECTAL PRN (16:00)
[2021-04-03] MEDS ORDERED: oxyCODONE 5 MG Tab PO PRN (16:12)
[2021-04-03] MEDS ORDERED: Naloxone 2 MG/2 ML Syringe IVPUSH PRN (16:25)
[2021-04-03] MEDS ORDERED: diphenhydrAMINE 25 MG Tab PO PRN (16:25)
[2021-04-03] MEDS ORDERED: diphenhydrAMINE 50 MG/ML SDV IVPUSH PRN (16:25)
[2021-04-03] MEDS ORDERED: Morphine PF 30 MG/30 ML PCA Vial IV PRN (16:30)
[2021-04-03 17:17] VITALS: BP 72/34; PULSE 56
--- NOTE | 2021-04-03 19:57 | PCM.DCSUM1 ---
Discharge Summary - Hospital Course Brief History: see below Diagnosis: Stroke: No Modified [place] Scale: Modified [place] Scale Score: 6 - Discharge Data Discharge Date: 04/03/21 Discharge Disposition: 20 Preliminary Cause of *Q: Cardiac Arrest Event(s) Leading to Patient's *Q: cardiogenic shock, severe symptomatic hypotension, lactic acidosis, End stage renal disease on hemodialysis, colon cancer with lung metastasis, acute on chronic combined systolic and diastolic heart failure Condition: - Referral to Home Health Primary Care Physician: PCP None - Discharge Plan *PRESCRIPTION DRUG MONITORING PROGRAM REVIEWED*: Not Applicable *COPY OF PRESCRIPTION DRUG MONITORING REPORT IN PATIENT ROBINA: Not Applicable Forms: ED Department Discharge Referrals: PCP,None [Primary Care Provider] - - Discharge Summary/Plan Comment DC Time >30 min.: Yes Total # of Minutes for Discharge Time: 60 - General Info Date of Service: 04/03/21 Admission Dx/Problem (Free Text: Admission Diagnosis/Problem Admission Diagnosis/Problem severe symptomatic Hypotension, lactic acidosis Functional Status: Reports: Other () - Review of Systems Systems Review Comment: incomplete. patient - Patient Data Vitals - Most Recent: Last Vital Signs Temp 101.2 F H 04/03/21 16:00 Pulse 56 L 04/03/21 16:00 Resp 24 H 04/03/21 16:00 BP 72/34 L 04/03/21 16:00 Pulse Ox 89 L 04/03/21 16:00 Weight - Most Recent: 216 lb 3.2 oz Lab Results - Last 24 hrs: Laboratory Results - last 24 hr 04/03/21 04/03/21 04/03/21 Range/Units 10:06 10:06 10:06 WBC 6.2 (5.0-10.0) 10^3/uL RBC 3.92 L (4.6-6.2) 10^6/uL Hgb 10.8 L D (14.0-18.0) g/dL Hct 33.8 L (40.0-54.0) % MCV 86.2 (80-100) fL MCH 27.6 (27.0-34.0) pg MCHC 32.0 L (33.0-35.0) g/dL Plt Count 117 L (150-450) 10^3/uL Neut % (Auto) 96.2 H (42.2-75.2) % Lymph % (Auto) 2.9 L (20.5-50.1) % [place] % (Auto) 0.7 L (2-8) % Eos % (Auto) 0.0 L (1.0-3.0) % Baso % (Auto) 0.2 (0.0-1.0) % Sodium 136 (136-145) mmol/L Potassium 3.6 D (3.5-5.1) mmol/L Chloride 95 L (98-107) mmol/L Carbon Dioxide 22 (21-32) mmol/L Anion Gap 22.6 H (7-13) mEq/L BUN 29 H D (7-18) mg/dL Creatinine 3.95 H D (0.70-1.30) mg/dL Est Cr Clr Drug Dosing 18.22 mL/min Estimated GFR (MDRD) 15 BUN/Creatinine Ratio 7.3 (No establ ref range) Glucose 238 H (70-99) mg/dL Lactic Acid 7.8 H* (0.4-2.0) mmol/L Calcium 8.4 L (8.5-10.1) mg/dL Total Bilirubin 0.9 (0.2-1.0) mg/dL AST 31 (15-37) U/L ALT 39 (16-63) U/L Alkaline Phosphatase 286 H (46-116) U/L Troponin I High Sens 94 H* (<=76) pg/mL C-Reactive Protein < 0.2 (0.0-0.9) mg/dL B-Natriuretic Peptide > 5000 H (0-100) pg/ml Total Protein 7.5 (6.4-8.2) g/dL Albumin 2.5 L (3.4-5.0) g/dL Globulin 5.0 Albumin/Globulin Ratio 0.50 Urine Color (YELLOW) Urine Appearance (CLEAR) Urine pH (5.0-9.0) Ur Specific [place] (1.005-1.030) Urine Protein (NEGATIVE) Urine Glucose (UA) (NEGATIVE) Urine Ketones (NEGATIVE) Urine Occult Blood (NEGATIVE) Urine Nitrite (NEGATIVE) Urine Bilirubin (NEGATIVE) Urine Urobilinogen (0.2-1.0) mg/dL Ur Leukocyte Esterase (NEGATIVE) Urine RBC (0-5) /HPF Urine WBC (0-5/HPF) /HPF Ur Epithelial Cells (NOT SEEN) /HPF Urine Bacteria (0-FEW/HPF) /HPF Urine Mucus (NOT SEEN) /LPF Urine Opiates Screen (NEGATIVE) Ur Oxycodone Screen (NEGATIVE) Urine Methadone Screen (NEGATIVE) Ur Barbiturates Screen (NEGATIVE) U Tricyclic Antidepress (NEGATIVE) Ur Phencyclidine Scrn (NEGATIVE) Ur Amphetamine Screen (NEGATIVE) U Methamphetamines Scrn (NEGATIVE) Urine MDMA Screen (NEGATIVE) U Benzodiazepines Scrn (NEGATIVE) Urine Cocaine Screen (NEGATIVE) U Marijuana (THC) Screen (NEGATIVE) Ethyl Alcohol < 3 (0) mg/dL Ketones SARS CoV-2 RNA Rapid CLINT (NEGATIVE) 04/03/21 04/03/21 04/03/21 Range/Units 10:06 11:19 11:19 WBC (5.0-10.0) 10^3/uL RBC (4.6-6.2) 10^6/uL Hgb (14.0-18.0) g/dL Hct (40.0-54.0) % MCV (80-100) fL MCH (27.0-34.0) pg MCHC (33.0-35.0) g/dL Plt Count (150-450) 10^3/uL Neut % (Auto) (42.2-75.2) % Lymph % (Auto) (20.5-50.1) % Sw[place] % (Auto) (2-8) % Eos % (Auto) (1.0-3.0) % Baso % (Auto) (0.0-1.0) % Sodium (136-145) mmol/L Potassium (3.5-5.1) mmol/L Chloride (98-107) mmol/L Carbon Dioxide (21-32) mmol/L Anion Gap (7-13) mEq/L BUN (7-18) mg/dL Creatinine (0.70-1.30) mg/dL Est Cr Clr Drug Dosing mL/min Estimated GFR (MDRD) BUN/Creatinine Ratio (No establ ref range) Glucose (70-99) mg/dL Lactic Acid (0.4-2.0) mmol/L Calcium (8.5-10.1) mg/dL Total Bilirubin (0.2-1.0) mg/dL AST (15-37) U/L ALT (16-63) U/L Alkaline Phosphatase (46-116) U/L Troponin I High Sens (<=76) pg/mL C-Reactive Protein (0.0-0.9) mg/dL B-Natriuretic Peptide (0-100) pg/ml Total Protein (6.4-8.2) g/dL Albumin (3.4-5.0) g/dL Globulin Albumin/Globulin Ratio Urine Color Yellow (YELLOW) Urine Appearance Slightly cloudy (CLEAR) Urine pH 7.0 (5.0-9.0) Ur Specific [place] 1.015 (1.005-1.030) Urine Protein 100 H (NEGATIVE) Urine Glucose (UA) 500 H (NEGATIVE) Urine Ketones Negative (NEGATIVE) Urine Occult Blood Trace-intact H (NEGATIVE) Urine Nitrite Negative (NEGATIVE) Urine Bilirubin Negative (NEGATIVE) Urine Urobilinogen 0.2 (0.2-1.0) mg/dL Ur Leukocyte Esterase Negative (NEGATIVE) Urine RBC 0-5 (0-5) /HPF Urine WBC 0-5 (0-5/HPF) /HPF Ur Epithelial Cells Rare (NOT SEEN) /HPF Urine Bacteria Rare (0-FEW/HPF) /HPF Urine Mucus Few H (NOT SEEN) /LPF Urine Opiates Screen Negative (NEGATIVE) Ur Oxycodone Screen Negative (NEGATIVE) Urine Methadone Screen Negative (NEGATIVE) Ur Barbiturates Screen Negative (NEGATIVE) U Tricyclic Antidepress Negative (NEGATIVE) Ur Phencyclidine Scrn Negative (NEGATIVE) Ur Amphetamine Screen Negative (NEGATIVE) U Methamphetamines Scrn Negative (NEGATIVE) Urine MDMA Screen Negative (NEGATIVE) U Benzodiazepines Scrn Negative (NEGATIVE) Urine Cocaine Screen Negative (NEGATIVE) U Marijuana (THC) Screen Negative (NEGATIVE) Ethyl Alcohol (0) mg/dL Ketones Negative SARS CoV-2 RNA Rapid CLINT (NEGATIVE) 04/03/21 04/03/21 Range/Units 13:58 14:17 WBC (5.0-10.0) 10^3/uL RBC (4.6-6.2) 10^6/uL Hgb (14.0-18.0) g/dL Hct (40.0-54.0) % MCV (80-100) fL MCH (27.0-34.0) pg MCHC (33.0-35.0) g/dL Plt Count (150-450) 10^3/uL Neut % (Auto) (42.2-75.2) % Lymph % (Auto) (20.5-50.1) % [place] % (Auto) (2-8) % Eos % (Auto) (1.0-3.0) % Baso % (Auto) (0.0-1.0) % Sodium (136-145) mmol/L Potassium (3.5-5.1) mmol/L Chloride (98-107) mmol/L Carbon Dioxide (21-32) mmol/L Anion Gap (7-13) mEq/L BUN (7-18) mg/dL Creatinine (0.70-1.30) mg/dL Est Cr Clr Drug Dosing mL/min Estimated GFR (MDRD) BUN/Creatinine Ratio (No establ ref range) Glucose (70-99) mg/dL Lactic Acid 3.9 H* (0.4-2.0) mmol/L Calcium (8.5-10.1) mg/dL Total Bilirubin (0.2-1.0) mg/dL AST (15-37) U/L ALT (16-63) U/L Alkaline Phosphatase (46-116) U/L Troponin I High Sens (<=76) pg/mL C-Reactive Protein (0.0-0.9) mg/dL B-Natriuretic Peptide (0-100) pg/ml Total Protein (6.4-8.2) g/dL Albumin (3.4-5.0) g/dL Globulin Albumin/Globulin Ratio Urine Color (YELLOW) Urine Appearance (CLEAR) Urine pH (5.0-9.0) Ur Specific [place] (1.005-1.030) Urine Protein (NEGATIVE) Urine Glucose (UA) (NEGATIVE) Urine Ketones (NEGATIVE) Urine Occult Blood (NEGATIVE) Urine Nitrite (NEGATIVE) Urine Bilirubin (NEGATIVE) Urine Urobilinogen (0.2-1.0) mg/dL Ur Leukocyte Esterase (NEGATIVE) Urine RBC (0-5) /HPF Urine WBC (0-5/HPF) /HPF Ur Epithelial Cells (NOT SEEN) /HPF Urine Bacteria (0-FEW/HPF) /HPF Urine Mucus (NOT SEEN) /LPF Urine Opiates Screen (NEGATIVE) Ur Oxycodone Screen (NEGATIVE) Urine Methadone Screen (NEGATIVE) Ur Barbiturates Screen (NEGATIVE) U Tricyclic Antidepress (NEGATIVE) Ur Phencyclidine Scrn (NEGATIVE) Ur Amphetamine Screen (NEGATIVE) U Methamphetamines Scrn (NEGATIVE) Urine MDMA Screen (NEGATIVE) U Benzodiazepines Scrn (NEGATIVE) Urine Cocaine Screen (NEGATIVE) U Marijuana (THC) Screen (NEGATIVE) Ethyl Alcohol (0) mg/dL Ketones SARS CoV-2 RNA Rapid CLINT Negative (NEGATIVE) Med Orders - Current: Current Medications Acetaminophen (Acetaminophen 650 Mg Supp) 650 mg RECTAL Q3H PRN PRN Reason: Pain/Fever Baclofen (Baclofen 10 Mg Tab) 10 mg PO QID PRN PRN Reason: Muscle Spasm - Painful Diphenhydramine HCl (Diphenhydramine 50 Mg/Ml Sdv) 25 mg IVPUSH Q6H PRN PRN Reason: Itching Diphenhydramine HCl (Diphenhydramine 25 Mg Tab) 25 mg PO Q6H PRN PRN Reason: Itching Lorazepam (Lorazepam 2 Mg/Ml Sdv) 1 mg IV Q4H PRN PRN Reason: Agitation Meclizine HCl (Meclizine 12.5 Mg Tab) 25 mg PO Q6H PRN PRN Reason: Nausea Morphine Sulfate (Morphine Pf 30 Mg/30 Ml [employer] Vial) 0 mg IV ASDIRECTED PRN; Protocol PRN Reason: Other Last Admin: 04/03/21 16:46 Dose: 30 mg Documented by: Naloxone HCl (Naloxone 2 Mg/2 Ml Syringe) 0.04 mg IVPUSH Q3M PRN PRN Reason: Respiratory Depression Ondansetron HCl (Ondansetron 4 Mg/2 Ml Sdv) 8 mg IVPUSH Q6H PRN PRN Reason: Nausea/Vomiting Ondansetron HCl (Ondansetron 4 Mg/2 Ml Sdv) 4 mg IVPUSH Q6H PRN PRN Reason: Nausea/Vomiting Oxycodone HCl (Oxycodone 5 Mg Tab) 10 mg PO Q4H PRN PRN Reason: pain Polyethylene Glycol (Polyethylene Glycol 3350 Powder 17 Gm Packet) 17 gm PO DAILY PRN PRN Reason: Constipation Sodium Chloride (Sodium Chloride 0.9% 10 Ml Syringe) 10 ml FLUSH ASDIRECTED PRN PRN Reason: Keep Vein Open Discontinued Medications Sodium Chloride (Normal Saline) 500 mls @ 999 mls/hr IV .BOLUS ONE Stop: 04/03/21 10:52 Last Admin: 04/03/21 10:30 Dose: 999 mls/hr Documented by: Metoprolol Tartrate (Metoprolol Tartrate 5 Mg/5 Ml Sdv) 5 mg IVPUSH ONETIME ONE Stop: 04/03/21 10:32 Last Admin: 04/03/21 10:37 Dose: 5 mg Documented by: Morphine Sulfate (Morphine 2 Mg/Ml Syringe) 4 mg IVPUSH ONETIME ONE Stop: 04/03/21 14:51 Last Admin: 04/03/21 15:26 Dose: 4 mg Documented by: - Exam Lungs: Reports: Other (no spontaneous breathing) Cardiovascular: Reports: Other (no heart tones ) Skin: Reports: Cool *Q Meaningful Use (DIS) - VTE *Q VTE Mechanical Contraindications *Q: Tx/Proc Refused byPt VTE Pharmacological Contraindications *Q: Tx/Proc Refused by Pt VTE Anticoagulation Contraindications: Tx/proc Refused by PT - Stroke *Q Aspirin Contraindications Stroke *Q: Patient Refusal Anticoagulation Contraindications Stroke *Q: TX/PROC Refused by PT Antithrombotic Contraindications Stroke *Q: TX/PROC Refused by PT Statin Contraindications Stroke *Q: TX/PROC Refused by PT Rehabilitation Assessment Contraindication *Q: Tx/proc refused by pt - AMI *Q Aspirin Contraindications AMI *Q: TX/PROC Refused by PT Statin Contraindications AMI *Q: TX/Proc Refused by PT
== END 2021-04-04 06:22 | disposition expired | DRG 291 ==
LOC: DL.ED 09:22 → DL.MS 14:52
PROVIDERS: ADMIT Hospitalist; ATTEND Hospitalist
DX: R53.1 Weakness (principal); I47.1 Supraventricular tachycardia; I95.9 Hypotension, unspecified; I50.43 Acute on chronic combined systolic (congestive) and diastolic (congestive) heart failure; N18.6 End stage renal disease; C18.9 Malignant neoplasm of colon, unspecified; C78.02 Secondary malignant neoplasm of left lung; E87.2 Acidosis; C78.01 Secondary malignant neoplasm of right lung; I13.2 Hypertensive heart and chronic kidney disease with heart failure and with stage 5 chronic kidney disease, or end stage renal disease; H54.7 Unspecified visual loss; Z66 Do not resuscitate; R57.0 Cardiogenic shock; H91.90 Unspecified hearing loss, unspecified ear; E78.00 Pure hypercholesterolemia, unspecified; I25.2 Old myocardial infarction; Z51.5 Encounter for palliative care; G89.3 Neoplasm related pain (acute) (chronic); K80.20 Calculus of gallbladder without cholecystitis without obstruction; Z95.5 Presence of coronary angioplasty implant and graft; D63.1 Anemia in chronic kidney disease; E66.9 Obesity, unspecified; E11.42 Type 2 diabetes mellitus with diabetic polyneuropathy; I46.9 Cardiac arrest, cause unspecified; I25.10 Atherosclerotic heart disease of native coronary artery without angina pectoris; E11.22 Type 2 diabetes mellitus with diabetic chronic kidney disease; Z88.6 Allergy status to analgesic agent; Z99.2 Dependence on renal dialysis; Z91.013 Allergy to seafood; M19.90 Unspecified osteoarthritis, unspecified site; Z79.899 Other long term (current) drug therapy; Z79.51 Long term (current) use of inhaled steroids; G89.29 Other chronic pain; M54.9 Dorsalgia, unspecified; Z95.828 Presence of other vascular implants and grafts; Z98.49 Cataract extraction status, unspecified eye; Z98.890 Other specified postprocedural states; Z83.3 Family history of diabetes mellitus; Z82.3 Family history of stroke; Z82.49 Family history of ischemic heart disease and other diseases of the circulatory system; Z68.31 Body mass index [BMI] 31.0-31.9, adult; D64.9 Anemia, unspecified; Z87.891 Personal history of nicotine dependence; Z91.012 Allergy to eggs; Z88.8 Allergy status to other drugs, medicaments and biological substances; Z91.018 Allergy to other foods; Z20.822 Contact with and (suspected) exposure to COVID-19
CPT/HCPCS: 36415; 71045; 80053; 80305-QW; 80307; 81001; 82009; 83605; 83880; 84484; 85025; 86140; 93005; J2270; J2274; J3490; J7030; U0002